=== PATIENT | female | born 1950 | race Hispanic/Latino ===

== ENCOUNTER 2018-01-24 15:06 | Inpatient (IN) | payer OTHER ==
[2018-01-24] MEDS ORDERED: oxyCODONE 10 mg Immediate Release Tab PO PRN (17:17)
[2018-01-24] MEDS: Docusate-Senna 50 mg-8.6 mg Tab PO SCH (21:33)
[2018-01-25] MEDS: Cholecalciferol 1,000 INTLU TAB PO SCH (09:06)
[2018-01-25] MEDS: Enoxaparin 40 mg Syringe SC SCH (09:07)
--- NOTE | 2018-01-25 09:28 | RAD ---
HISTORY: refused PPD COMPARISON: No prior. FINDINGS: LUNGS: No active pulmonary disease. PLEURA: No significant pleural effusion identified, no pneumothorax apparent. CARDIOVASCULAR: Cardiomegaly. OSSEOUS STRUCTURES: No significant abnormalities. VISUALIZED UPPER ABDOMEN: Normal. OTHER FINDINGS: None. IMPRESSION: No active disease.
--- NOTE | 2018-01-25 09:55 | CP.PCM.PN ---
Subjective - Date & Time of Evaluation Date of Evaluation: 01/25/18 Time of Evaluation: 09:15 - Subjective Subjective: Patient seen and examined at bedside comfortable. Azam well controlled. Tolerating PT well. C/o light headedness this AM. No other complaints. Objective - Vital Signs/Intake and Output Vital Signs (last 24 hours): Temp Pulse Resp BP Pulse Ox 98.8 F 84 20 110/70 91 L 01/25/18 09:02 01/25/18 09:06 01/25/18 09:02 01/25/18 09:06 01/25/18 09:02 - Medications Medications: Current Medications Acetaminophen (Tylenol 325mg Tab) 650 mg PO Q6 PRN PRN Reason: Pain, Mild (1-3) Acetaminophen (Tylenol 325mg Tab) 650 mg PO Q6 PRN PRN Reason: Fever >100.4 F Allopurinol (Zyloprim) 100 mg PO DAILY [facility] Last Admin: 01/25/18 09:06 Dose: 100 mg Amlodipine Besylate (Norvasc) 5 mg PO DAILY [facility] Last Admin: 01/25/18 09:05 Dose: 5 mg Aspirin (Ecotrin) 81 mg PO DAILY [facility] Last Admin: 01/25/18 09:06 Dose: 81 mg Atorvastatin Calcium (Lipitor) 20 mg PO DAILY@2200 [facility] Last Admin: 01/24/18 21:33 Dose: 20 mg Carvedilol (Coreg) 6.25 mg PO BID [facility] Last Admin: 01/25/18 09:06 Dose: 6.25 mg Cholecalciferol (Vitamin D) 2,000 intlu PO DAILY [facility] Last Admin: 01/25/18 09:06 Dose: 2,000 intlu Enoxaparin Sodium (Lovenox) 40 mg SC DAILY [facility] PRN Reason: Protocol Last Admin: 01/25/18 09:07 Dose: 40 mg Hydrochlorothiazide (Microzide) 12.5 mg PO DAILY [facility] Last Admin: 01/25/18 09:04 Dose: 12.5 mg Losartan Potassium (Cozaar) 100 mg PO DAILY [facility] Last Admin: 01/25/18 09:04 Dose: 100 mg Oxycodone HCl (Oxycodone Immediate Release Tab) 10 mg PO Q6 PRN PRN Reason: Pain, moderate (4-7) Last Admin: 06/28/18 07:20 Dose: 10 mg Senna/Docusate Sodium (Senokot S 50 Mg-8.6 Mg) 1 tab PO HS [facility] Last Admin: 01/24/18 21:33 Dose: 1 tab - Extremities Exam Additional comments: Right knee: Knee immobilizer intact, Dressings CDI, JERRY dressing intact with small areas of dry blood moderate edema, mild swelling sensation intact SP/DP/TN motor intact EHL/FHL/TA/G comps soft NT Assessment and Plan (1) Status post total right knee replacement Assessment & Plan: POD#3 s/p R TKA doing well -pain well controlled -outer dressings taken down, compression stocking applied -maintain JRERY dressing -PT/OT 10% FF WB -orthopedically stable -above d/w Dr. Plummer in agreement Status: Acute
--- NOTE | 2018-01-25 10:54 | CP.PCM.HP ---
History of Present Illness - History of Present Illness History of Present Illness: 67 yo female with history of HTN, HLD and OA had right TKR on 01/22/18 after failing conservative management. Patient did well and was transferred to TCU for continuation of postoperative care and therapy. Present on Admission - Present on Admission Any Indicators Present on Admission: No History of DVT/PE: No History of Uncontrolled Diabetes: No Urinary Catheter: No Decubitus Ulcer Present: No Review of Systems - Review of Systems All systems: reviewed and no additional remarkable complaints except (aside from those mentioned above, 12 point system review were negative by me) Past Patient History - Tetanus Immunizations Tetanus Immunization: Unknown - Past Medical History & Family History Past Medical History?: Yes - Past Social History Smoking Status: Never Smoked Chewing Tobacco Use: No Cigar Use: No Alcohol: None Drugs: Denies - CARDIAC Hx Cardiac Disorders: Yes Hx Hypertension: Yes - PULMONARY Hx Respiratory Disorders: No - NEUROLOGICAL Hx Neurological Disorder: No - HEENT Hx HEENT Problems: No - RENAL Hx Chronic Kidney Disease: No - ENDOCRINE/METABOLIC Hx Endocrine Disorders: No - HEMATOLOGICAL/ONCOLOGICAL Hx Blood Disorders: No Hx AIDS: No Hx Human Immunodeficiency Virus (HIV): No - INTEGUMENTARY Hx Dermatological Problems: No - MUSCULOSKELETAL/RHEUMATOLOGICAL Hx Musculoskeletal Disorders: Yes Hx Arthritis: Yes (knees) Hx Falls: No Other/Comment: Arthoplasty ,Rt TKR on 01/22/17 - GASTROINTESTINAL Hx Gastrointestinal Disorders: No - GENITOURINARY/GYNECOLOGICAL Hx Genitourinary Disorders: No - PSYCHIATRIC Hx Psychophysiologic Disorder: No Hx Substance Use: No - SURGICAL HISTORY Hx Surgeries: Yes Hx Appendectomy: Yes - ANESTHESIA Hx Anesthesia: Yes Hx Anesthesia Reactions: No Meds Allergies/Adverse Reactions: Allergies Allergy/AdvReac Type Severity Reaction Status Date / Time No Known Allergies Allergy Verified 01/24/18 16:37 Physical Exam - Constitutional Appears: No Acute Distress - Head Exam Head Exam: ATRAUMATIC - Eye Exam Eye Exam: absent: Scleral icterus - ENT Exam ENT Exam: Mucous Membranes Moist - Neck Exam Neck exam: Negative for: Meningismus - Respiratory Exam Respiratory Exam: absent: Rales, Rhonchi, Wheezes, Respiratory Distress - Cardiovascular Exam Cardiovascular Exam: REGULAR RHYTHM, +S1, +S2 - GI/Abdominal Exam GI & Abdominal Exam: Soft. absent: Tenderness - Rectal Exam Rectal Exam: Deferred - Extremities Exam Extremities exam: Negative for: full ROM (right knee on immobilizer) - Neurological Exam Neurological exam: Alert, Oriented x3 - Psychiatric Exam Psychiatric exam: Normal Affect - Skin Skin Exam: Dry, Intact Results - Vital Signs Recent Vital Signs: Last Vital Signs Temp 98.8 F 01/25/18 09:02 Pulse 84 01/25/18 09:06 Resp 20 01/25/18 09:02 BP 110/70 01/25/18 09:06 Pulse Ox 91 L 01/25/18 09:02 Assessment & Plan - Assessment and Plan (Free Text) Assessment: 67 yo female with history of HTN, HLD and OA had right TKR on 01/22/18 after failing conservative management. Patient did well and was transferred to TCU for continuation of postoperative care and therapy. 1. Post Right TKR pain well tolerated with pain medication continue PT/OT physiatry consult with Dr Ignacio 2. HTN BP stable continue Amlodipine, Coreg, Losartan and HCTZ 3. HLD continue Lipitor 4. DVT prophylaxis continue Lovenox
[2018-01-25] MEDS: Docusate-Senna 50 mg-8.6 mg Tab PO SCH (21:20)
--- NOTE | 2018-01-25 21:47 | CP.PCM.CON ---
History of Present Illness - History of Present Illness History of Present Illness: 67 year old female with right total knee replacement admitted to TCU for inpatient, OA failed conservative treatment. PMH of HTN,oa Review of Systems - Musculoskeletal Musculoskeletal: Abnormal Gait, Limited Range of Motion, Muscle Weakness Past Patient History - Tetanus Immunizations Tetanus Immunization: Unknown - Past Medical History & Family History Past Medical History?: Yes - Past Social History Smoking Status: Never Smoked Chewing Tobacco Use: No Cigar Use: No Alcohol: None Drugs: Denies - CARDIAC Hx Cardiac Disorders: Yes Hx Hypertension: Yes - PULMONARY Hx Respiratory Disorders: No - NEUROLOGICAL Hx Neurological Disorder: No - HEENT Hx HEENT Problems: No - RENAL Hx Chronic Kidney Disease: No - ENDOCRINE/METABOLIC Hx Endocrine Disorders: No - HEMATOLOGICAL/ONCOLOGICAL Hx Blood Disorders: No Hx AIDS: No Hx Human Immunodeficiency Virus (HIV): No - INTEGUMENTARY Hx Dermatological Problems: No - MUSCULOSKELETAL/RHEUMATOLOGICAL Hx Musculoskeletal Disorders: Yes Hx Arthritis: Yes (knees) Hx Falls: No Other/Comment: Arthoplasty ,Rt TKR on 01/22/17 - GASTROINTESTINAL Hx Gastrointestinal Disorders: No - GENITOURINARY/GYNECOLOGICAL Hx Genitourinary Disorders: No - PSYCHIATRIC Hx Psychophysiologic Disorder: No Hx Substance Use: No - SURGICAL HISTORY Hx Surgeries: Yes Hx Appendectomy: Yes - ANESTHESIA Hx Anesthesia: Yes Hx Anesthesia Reactions: No Meds Allergies/Adverse Reactions: Allergies Allergy/AdvReac Type Severity Reaction Status Date / Time No Known Allergies Allergy Verified 01/24/18 16:37 - Medications Medications: Current Medications Acetaminophen (Tylenol 325mg Tab) 650 mg PO Q6 PRN PRN Reason: Pain, Mild (1-3) Last Admin: 01/25/18 17:34 Dose: 650 mg Acetaminophen (Tylenol 325mg Tab) 650 mg PO Q6 PRN PRN Reason: Fever >100.4 F Allopurinol (Zyloprim) 100 mg PO DAILY [facility] Last Admin: 01/25/18 09:06 Dose: 100 mg Amlodipine Besylate (Norvasc) 5 mg PO DAILY [facility] Last Admin: 01/25/18 09:05 Dose: 5 mg Aspirin (Ecotrin) 81 mg PO DAILY [facility] Last Admin: 01/25/18 09:06 Dose: 81 mg Atorvastatin Calcium (Lipitor) 20 mg PO DAILY@2200 [facility] Last Admin: 01/25/18 21:20 Dose: 20 mg Carvedilol (Coreg) 6.25 mg PO BID [facility] Last Admin: 01/25/18 17:34 Dose: 6.25 mg Cholecalciferol (Vitamin D) 2,000 intlu PO DAILY [facility] Last Admin: 01/25/18 09:06 Dose: 2,000 intlu Enoxaparin Sodium (Lovenox) 40 mg SC DAILY [facility] PRN Reason: Protocol Last Admin: 01/25/18 09:07 Dose: 40 mg Hydrochlorothiazide (Microzide) 12.5 mg PO DAILY [facility] Last Admin: 01/25/18 09:04 Dose: 12.5 mg Losartan Potassium (Cozaar) 100 mg PO DAILY [facility] Last Admin: 01/25/18 09:04 Dose: 100 mg Senna/Docusate Sodium (Senokot S 50 Mg-8.6 Mg) 1 tab PO [facility] Last Admin: 01/25/18 21:20 Dose: 1 tab Tramadol HCl (Ultram) 50 mg PO Q6 PRN PRN Reason: Pain, moderate (6-10) Last Admin: 01/25/18 21:20 Dose: 50 mg Physical Exam - Head Exam Head Exam: ATRAUMATIC, NORMAL INSPECTION, NORMOCEPHALIC - Eye Exam Eye Exam: EOMI, Normal appearance, PERRL Pupil Exam: NORMAL ACCOMODATION, PERRL - ENT Exam ENT Exam: Mucous Membranes Moist, Normal Exam - Neck Exam Neck exam: Positive for: Normal Inspection - Respiratory Exam Respiratory Exam: Clear to Auscultation Bilateral, NORMAL BREATHING PATTERN - Cardiovascular Exam Cardiovascular Exam: REGULAR RHYTHM - GI/Abdominal Exam GI & Abdominal Exam: Normal Bowel Sounds - Rectal Exam Rectal Exam: NORMAL INSPECTION - Exam External exam: NORMAL EXTERNAL EXAM - Extremities Exam Extremities exam: Positive for: normal inspection Additional comments: right leg weakness - Back Exam Back exam: NORMAL INSPECTION - Neurological Exam Neurological exam: Alert - Psychiatric Exam Psychiatric exam: Normal Affect, Normal Mood - Skin Skin Exam: Dry, Normal Color, Warm Results - Vital Signs Recent Vital Signs: Last Vital Signs Temp 99.5 F 01/25/18 20:11 Pulse 77 01/25/18 20:11 Resp 20 01/25/18 20:11 BP 120/60 01/25/18 20:11 Pulse Ox 95 01/25/18 20:11 Assessment & Plan (1) Status post total right knee replacement Assessment and Plan: 67 year female admitted to TCU for inpatient rehab. Plan for physical, occupational, range of motion, strengthening, transfers and gait training, Quad strengthening, monitor range of motion of knee and skin. Status: Acute (2) Osteoarthritis of right knee Status: Acute
[2018-01-26] MEDS: Cholecalciferol 1,000 INTLU TAB PO SCH (09:06)
[2018-01-26] MEDS: Enoxaparin 40 mg Syringe SC SCH (09:09)
--- NOTE | 2018-01-26 10:52 | CP.PCM.PN ---
Subjective - Date & Time of Evaluation Date of Evaluation: 01/26/18 Time of Evaluation: 10:49 - Subjective Subjective: Patient states she doesn't have much pain. Sitting in chair, comfortable Objective - Vital Signs/Intake and Output Vital Signs (last 24 hours): Temp Pulse Resp BP Pulse Ox 98.2 F 74 20 110/80 100 01/26/18 08:21 01/26/18 09:08 01/26/18 08:21 01/26/18 09:08 01/26/18 08:21 - Medications Medications: Current Medications Acetaminophen (Tylenol 325mg Tab) 650 mg PO Q6 PRN PRN Reason: Pain, Mild (1-3) Last Admin: 01/25/18 17:34 Dose: 650 mg Acetaminophen (Tylenol 325mg Tab) 650 mg PO Q6 PRN PRN Reason: Fever >100.4 F Allopurinol (Zyloprim) 100 mg PO DAILY [facility] Last Admin: 01/26/18 09:06 Dose: 100 mg Amlodipine Besylate (Norvasc) 5 mg PO DAILY [facility] Last Admin: 01/26/18 09:08 Dose: 5 mg Aspirin (Ecotrin) 81 mg PO DAILY [facility] Last Admin: 01/26/18 09:06 Dose: 81 mg Atorvastatin Calcium (Lipitor) 20 mg PO DAILY@2200 [facility] Last Admin: 01/25/18 21:20 Dose: 20 mg Carvedilol (Coreg) 6.25 mg PO BID [facility] Last Admin: 01/26/18 09:07 Dose: 6.25 mg Cholecalciferol (Vitamin D) 2,000 intlu PO DAILY [facility] Last Admin: 01/26/18 09:06 Dose: 2,000 intlu Enoxaparin Sodium (Lovenox) 40 mg SC DAILY [facility] PRN Reason: Protocol Last Admin: 01/26/18 09:09 Dose: 40 mg Hydrochlorothiazide (Microzide) 12.5 mg PO DAILY [facility] Last Admin: 01/26/18 09:09 Dose: 12.5 mg Losartan Potassium (Cozaar) 100 mg PO DAILY [facility] Last Admin: 01/26/18 09:05 Dose: 100 mg Senna/Docusate Sodium (Senokot S 50 Mg-8.6 Mg) 1 tab PO HS [facility] Last Admin: 01/25/18 21:20 Dose: 1 tab Tramadol HCl (Ultram) 50 mg PO Q6 PRN PRN Reason: Pain, moderate (6-10) Last Admin: 01/26/18 09:03 Dose: 50 mg - Extremities Exam Additional comments: Right knee: mild swelling, +ROM ankle/toes, calves osft NT neg homans, no drainage on curtis, sensation intact Assessment and Plan (1) Status post total right knee replacement Assessment & Plan: POD# 4 s/p right TKR -labs today -PT/OT -keep curtis intace ice to knee, ponce elevation d/w DR. Plummer, agrees with above Status: Acute
[2018-01-26 12:02] LABS: HEMOGLOBIN 9.5 g/dL (12.0-16.0); MEAN CELL VOLUME 91.8 fl (81.0-99.0); MEAN CORPUSCULAR HGB CONC 33.8 g/dL (33.0-37.0); RBC 3.05 Mil/uL (3.80-5.20); RED CELL DISTRIBUTION WIDTH 13.2 % (11.5-14.5); WHITE BLOOD COUNT 7.7 K/uL (4.8-10.8)
[2018-01-26 12:28] LABS: CALCIUM 8.1 mg/dL (8.4-10.2)
[2018-01-26] MEDS: Sodium Chloride 0.9% 1,000 ML IV SCH (18:40)
[2018-01-26] MEDS: Docusate-Senna 50 mg-8.6 mg Tab PO SCH (21:17)
[2018-01-27] MEDS: Sodium Chloride 0.9% 1,000 ML IV SCH (03:22)
[2018-01-27 07:55] LABS: HEMOGLOBIN 8.6 g/dL (12.0-16.0); MEAN CELL VOLUME 92.3 fl (81.0-99.0); MEAN CORPUSCULAR HEMOGLOBIN 31.3 pg (27.0-31.0); MEAN CORPUSCULAR HGB CONC 33.9 g/dL (33.0-37.0); RBC 2.75 Mil/uL (3.80-5.20); RED CELL DISTRIBUTION WIDTH 13.3 % (11.5-14.5); WHITE BLOOD COUNT 5.3 K/uL (4.8-10.8)
[2018-01-27 08:07] LABS: BLOOD UREA NITROGEN 23 mg/dl (7-17); CALCIUM 7.2 mg/dL (8.4-10.2); GFR AFRICAN-AMERICAN > 60; GFR NON-AFRICAN AMERICAN > 60
[2018-01-27] MEDS: Enoxaparin 40 mg Syringe SC SCH (09:15)
[2018-01-27] MEDS: Cholecalciferol 1,000 INTLU TAB PO SCH (09:16)
[2018-01-27] MEDS: Docusate-Senna 50 mg-8.6 mg Tab PO SCH (21:11)
[2018-01-28] MEDS: Enoxaparin 40 mg Syringe SC SCH (08:06)
[2018-01-28] MEDS: Cholecalciferol 1,000 INTLU TAB PO SCH (08:06)
[2018-01-28] MEDS: Docusate-Senna 50 mg-8.6 mg Tab PO SCH (22:33)
[2018-01-29] MEDS: Enoxaparin 40 mg Syringe SC SCH (09:02)
[2018-01-29] MEDS: Cholecalciferol 1,000 INTLU TAB PO SCH (09:03)
--- NOTE | 2018-01-29 10:24 | CP.PCM.PN ---
Subjective - Date & Time of Evaluation Date of Evaluation: 01/29/18 Time of Evaluation: 09:30 - Subjective Subjective: Patient seen and examined OOB to wheelchair comfortable. Pain is 4/10 this AM controlled with medication. She also complains of burning to the RLE, RLE venous duplex performed yesterday. Objective - Vital Signs/Intake and Output Vital Signs (last 24 hours): Temp Pulse Resp BP Pulse Ox 97.7 F 82 20 162/82 H 99 01/29/18 08:10 01/29/18 09:03 01/29/18 08:10 01/29/18 09:03 01/29/18 08:10 - Medications Medications: Current Medications Acetaminophen (Tylenol 325mg Tab) 650 mg PO Q6 PRN PRN Reason: Pain, Mild (1-3) Last Admin: 01/26/18 17:12 Dose: 650 mg Acetaminophen (Tylenol 325mg Tab) 650 mg PO Q6 PRN PRN Reason: Fever >100.4 F Allopurinol (Zyloprim) 100 mg PO DAILY [facility] Last Admin: 01/29/18 09:03 Dose: 100 mg Amlodipine Besylate (Norvasc) 5 mg PO DAILY [facility] Last Admin: 01/29/18 09:03 Dose: 5 mg Aspirin (Ecotrin) 81 mg PO DAILY [facility] Last Admin: 01/29/18 09:02 Dose: 81 mg Atorvastatin Calcium (Lipitor) 20 mg PO DAILY@2200 [facility] Last Admin: 01/28/18 22:33 Dose: 20 mg Carvedilol (Coreg) 6.25 mg PO BID [facility] Last Admin: 01/29/18 09:02 Dose: 6.25 mg Cholecalciferol (Vitamin D) 2,000 intlu PO DAILY [facility] Last Admin: 01/29/18 09:03 Dose: 2,000 intlu Enoxaparin Sodium (Lovenox) 40 mg SC DAILY [facility] PRN Reason: Protocol Last Admin: 01/29/18 09:02 Dose: 40 mg Hydrochlorothiazide (Microzide) 12.5 mg PO DAILY [facility] Last Admin: 01/29/18 09:02 Dose: 12.5 mg Losartan Potassium (Cozaar) 100 mg PO DAILY [facility] Last Admin: 01/29/18 09:02 Dose: 100 mg Senna/Docusate Sodium (Senokot S 50 Mg-8.6 Mg) 1 tab PO HS [facility] Last Admin: 01/28/18 22:33 Dose: 1 tab Tramadol HCl (Ultram) 50 mg PO Q6 PRN PRN Reason: Pain, moderate (6-10) Last Admin: 01/29/18 09:03 Dose: 50 mg - Labs Labs: 01/27/18 05:30 01/27/18 05:30 - Extremities Exam Additional comments: Right knee: JERRY dressing intact moderate edema, mild swelling sensation intact SP/DP/TN motor intact EHL/FHL/TA/G comps soft NT Assessment and Plan (1) Status post total right knee replacement Assessment & Plan: POD#7 s/p R TKA doing well -Lower extremity venous duplex neg for DVT -compression stocking for edema, ice and elevate -maintain JERRY dressing -PT/OT 10% FF WB -orthopedically stable -above d/w Dr. Plummer in agreement Status: Acute Radiology Interpretation - Patient Services Clerk Patient Services Clerk:: Radiologist - Study type Study type:: Ultrasound - Body Region Body Region:: Lower extremeties - Notes: Notes:: Accession No. : [id number] Patient Name / ID : CADY DANIEL D / [id number] Exam Date : 01/28/2018 11:54:07 ( Approved ) Study Comment : Sex / Age : F / 67Y Creator : Marlo Onofre MD Dictator : Marlo Onofre MD Jig Grinder Set Up Operator : Woodworking Belt Sander : Marlo Onofre MD Approver2 : Report Date : 01/29/2018 09:44:22 My Comment : PROCEDURE: Right lower extremity venous duplex Doppler. HISTORY: r/o dvt COMPARISON: None available. TECHNIQUE: Common femoral, superficial femoral, popliteal and posterior tibial veins were evaluated. Flow was assessed with color Doppler, compressibility, assessment of phasic flow and augmentation response. FINDINGS: COMMON FEMORAL VEIN: Unremarkable. SUPERFICIAL FEMORAL VEIN: Unremarkable. POPLITEAL VEIN: Unremarkable. POSTERIOR TIBIAL VEIN: Unremarkable. OTHER FINDINGS: None. IMPRESSION: No evidence of deep venous thrombosis in the right lower extremity
[2018-01-29] MEDS: Docusate-Senna 50 mg-8.6 mg Tab PO SCH (21:15)
[2018-01-30] MEDS: Cholecalciferol 1,000 INTLU TAB PO SCH (08:00)
[2018-01-30] MEDS: Enoxaparin 40 mg Syringe SC SCH (08:01)
--- NOTE | 2018-01-30 08:10 | CP.PCM.PN ---
Subjective - Date & Time of Evaluation Date of Evaluation: 01/30/18 Time of Evaluation: 07:55 - Subjective Subjective: Patient seen and examined with Dr. Kavitha BOOKER to chair comfortable. C/o LRE swelling typical postop. Tolerating PT well. No new complaints. Objective - Vital Signs/Intake and Output Vital Signs (last 24 hours): Temp Pulse Resp BP Pulse Ox 98.4 F 75 20 132/75 99 01/30/18 08:08 01/30/18 08:08 01/30/18 08:08 01/30/18 08:08 01/30/18 08:08 - Medications Medications: Current Medications Acetaminophen (Tylenol 325mg Tab) 650 mg PO Q6 PRN PRN Reason: Pain, Mild (1-3) Last Admin: 01/26/18 17:12 Dose: 650 mg Acetaminophen (Tylenol 325mg Tab) 650 mg PO Q6 PRN PRN Reason: Fever >100.4 F Allopurinol (Zyloprim) 100 mg PO DAILY [facility] Last Admin: 01/30/18 08:00 Dose: 100 mg Amlodipine Besylate (Norvasc) 5 mg PO DAILY [facility] Last Admin: 01/30/18 08:01 Dose: 5 mg Aspirin (Ecotrin) 81 mg PO DAILY [facility] Last Admin: 01/30/18 08:00 Dose: 81 mg Atorvastatin Calcium (Lipitor) 20 mg PO DAILY@2200 [facility] Last Admin: 01/29/18 21:15 Dose: 20 mg Carvedilol (Coreg) 6.25 mg PO BID [facility] Last Admin: 01/30/18 08:00 Dose: 6.25 mg Cholecalciferol (Vitamin D) 2,000 intlu PO DAILY [facility] Last Admin: 01/30/18 08:00 Dose: 2,000 intlu Enoxaparin Sodium (Lovenox) 40 mg SC DAILY [facility] PRN Reason: Protocol Last Admin: 01/30/18 08:01 Dose: 40 mg Hydrochlorothiazide (Microzide) 12.5 mg PO DAILY [facility] Last Admin: 01/30/18 08:01 Dose: 12.5 mg Losartan Potassium (Cozaar) 100 mg PO DAILY [facility] Last Admin: 01/30/18 08:00 Dose: 100 mg Senna/Docusate Sodium (Senokot S 50 Mg-8.6 Mg) 1 tab PO HS [facility] Last Admin: 01/29/18 21:15 Dose: 1 tab Tramadol HCl (Ultram) 50 mg PO Q6 PRN PRN Reason: Pain, moderate (6-10) Last Admin: 01/30/18 07:58 Dose: 50 mg - Labs Labs: 01/27/18 05:30 01/27/18 05:30 - Extremities Exam Additional comments: Right knee: JERRY dressing intact, wound CDI with sekou, minimal bloody drainage at distal wound moderate edema, mild swelling sensation intact SP/DP/TN motor intact EHL/FHL/TA/G comps soft NT Assessment and Plan (1) Status post total right knee replacement Assessment & Plan: POD#8 s/p R TKA doing well -compression stocking for edema, ice and strict elevation -JERRY dressing removed -wet to dry betadine dressing applied, continue daily -PT/OT 10% FF WB -orthopedically stable -above d/w Dr. Plummer in agreement Status: Acute
[2018-01-30] MEDS ORDERED: Povidone Iodine Topical 10% Sol ONE (08:36)
--- NOTE | 2018-01-30 17:01 | CP.PCM.PN ---
Subjective - Date & Time of Evaluation Date of Evaluation: 01/30/18 Time of Evaluation: 11:30 - Subjective Subjective: Patient seen and examined. Denied any complaint. Tolerating PT/OT Objective - Vital Signs/Intake and Output Vital Signs (last 24 hours): Temp Pulse Resp BP Pulse Ox 98.2 F 82 20 137/79 97 01/30/18 16:25 01/30/18 16:42 01/30/18 16:25 01/30/18 16:42 01/30/18 16:25 - Medications Medications: Current Medications Acetaminophen (Tylenol 325mg Tab) 650 mg PO Q6 PRN PRN Reason: Pain, Mild (1-3) Last Admin: 01/26/18 17:12 Dose: 650 mg Acetaminophen (Tylenol 325mg Tab) 650 mg PO Q6 PRN PRN Reason: Fever >100.4 F Allopurinol (Zyloprim) 100 mg PO DAILY [facility] Last Admin: 01/30/18 08:00 Dose: 100 mg Amlodipine Besylate (Norvasc) 5 mg PO DAILY [facility] Last Admin: 01/30/18 08:01 Dose: 5 mg Aspirin (Ecotrin) 81 mg PO DAILY [facility] Last Admin: 01/30/18 08:00 Dose: 81 mg Atorvastatin Calcium (Lipitor) 20 mg PO DAILY@2200 [facility] Last Admin: 01/29/18 21:15 Dose: 20 mg Carvedilol (Coreg) 6.25 mg PO BID [facility] Last Admin: 01/30/18 16:42 Dose: 6.25 mg Cholecalciferol (Vitamin D) 2,000 intlu PO DAILY [facility] Last Admin: 01/30/18 08:00 Dose: 2,000 intlu Enoxaparin Sodium (Lovenox) 40 mg SC DAILY [facility] PRN Reason: Protocol Hydrochlorothiazide (Microzide) 12.5 mg PO DAILY [facility] Last Admin: 01/30/18 08:01 Dose: 12.5 mg Losartan Potassium (Cozaar) 100 mg PO DAILY [facility] Last Admin: 01/30/18 08:00 Dose: 100 mg Senna/Docusate Sodium (Senokot S 50 Mg-8.6 Mg) 1 tab PO HS [facility] Last Admin: 01/29/18 21:15 Dose: 1 tab Tramadol HCl (Ultram) 50 mg PO Q6 PRN PRN Reason: Pain, moderate (6-10) Last Admin: 01/30/18 14:08 Dose: 50 mg - Labs Labs: 01/27/18 05:30 01/27/18 05:30 - Constitutional Appears: No Acute Distress - Head Exam Head Exam: ATRAUMATIC - Eye Exam Eye Exam: absent: Scleral icterus - ENT Exam ENT Exam: Mucous Membranes Moist - Neck Exam Neck Exam: absent: Meningismus - Respiratory Exam Respiratory Exam: absent: Rales, Rhonchi, Wheezes, Respiratory Distress - Cardiovascular Exam Cardiovascular Exam: REGULAR RHYTHM, +S1, +S2 - GI/Abdominal Exam GI & Abdominal Exam: Soft. absent: Tenderness - Rectal Exam Rectal Exam: Deferred - Extremities Exam Extremities Exam: Joint Swelling (right knee still slightly swollen on knee immobilizer) - Neurological Exam Neurological Exam: Alert, Oriented x3 - Psychiatric Exam Psychiatric exam: Normal Affect - Skin Skin Exam: Dry, Intact Assessment and Plan - Assessment and Plan (Free Text) Plan: 67 yo female with history of HTN, HLD and OA had right TKR on 01/22/18 after failing conservative management. Patient did well and was transferred to TCU for continuation of postoperative care and therapy. 1. Post Right TKR pain well tolerated with pain medication continue PT/OT physiatry consult with Dr Ignacio 2. HTN BP stable continue Amlodipine, Coreg, Losartan and HCTZ 3. HLD continue Lipitor 4. DVT prophylaxis continue Lovenox
[2018-01-30] MEDS: Docusate-Senna 50 mg-8.6 mg Tab PO SCH (21:13)
[2018-01-31] MEDS: Cholecalciferol 1,000 INTLU TAB PO SCH (08:45)
[2018-01-31] MEDS: Enoxaparin 40 mg Syringe SC SCH (08:46)
[2018-01-31] MEDS: Docusate-Senna 50 mg-8.6 mg Tab PO SCH (21:44)
[2018-02-01] MEDS: Enoxaparin 40 mg Syringe SC SCH (08:12)
[2018-02-01] MEDS: Cholecalciferol 1,000 INTLU TAB PO SCH (08:13)
--- NOTE | 2018-02-01 13:50 | CP.PCM.PN ---
Subjective - Date & Time of Evaluation Date of Evaluation: 02/01/18 Time of Evaluation: 13:00 - Subjective Subjective: Patient seen and examined at bedside comfortable. Pain continues to improve and is minimal today. No new complaints. Objective - Vital Signs/Intake and Output Vital Signs (last 24 hours): Temp Pulse Resp BP Pulse Ox 97.9 F 79 20 140/83 95 02/01/18 09:23 02/01/18 09:23 02/01/18 09:23 02/01/18 09:23 02/01/18 09:23 - Medications Medications: Current Medications Acetaminophen (Tylenol 325mg Tab) 650 mg PO Q6 PRN PRN Reason: Pain, Mild (1-3) Last Admin: 01/26/18 17:12 Dose: 650 mg Acetaminophen (Tylenol 325mg Tab) 650 mg PO Q6 PRN PRN Reason: Fever >100.4 F Allopurinol (Zyloprim) 100 mg PO DAILY [facility] Last Admin: 02/01/18 08:13 Dose: 100 mg Amlodipine Besylate (Norvasc) 5 mg PO DAILY [facility] Last Admin: 02/01/18 08:13 Dose: 5 mg Aspirin (Ecotrin) 81 mg PO DAILY [facility] Last Admin: 02/01/18 08:13 Dose: 81 mg Atorvastatin Calcium (Lipitor) 20 mg PO DAILY@2200 [facility] Last Admin: 01/31/18 21:44 Dose: 20 mg Carvedilol (Coreg) 6.25 mg PO Q12 [facility] Last Admin: 02/01/18 08:13 Dose: 6.25 mg Cholecalciferol (Vitamin D) 2,000 intlu PO DAILY [facility] [place] Last Admin: 02/01/18 08:13 Dose: 2,000 intlu Enoxaparin Sodium (Lovenox) 40 mg SC DAILY [facility] PRN Reason: Protocol Last Admin: 02/01/18 08:12 Dose: 40 mg Hydrochlorothiazide (Microzide) 12.5 mg PO DAILY [facility] Last Admin: 02/01/18 08:14 Dose: 12.5 mg Losartan Potassium (Cozaar) 100 mg PO DAILY [facility] [place] Last Admin: 02/01/18 08:12 Dose: 100 mg Senna/Docusate Sodium (Senokot S 50 Mg-8.6 Mg) 1 tab PO HS [facility] Last Admin: 01/31/18 21:44 Dose: Not Given Tramadol HCl (Ultram) 50 mg PO Q6 PRN PRN Reason: Pain, moderate (6-10) Last Admin: 02/01/18 08:11 Dose: 50 mg - Labs Labs: 01/27/18 05:30 01/27/18 05:30 - Extremities Exam Additional comments: Right knee: Betadine dressings intact, wound CDI with sekou, no drainage moderate edema, mild swelling improved sensation intact SP/DP/TN motor intact EHL/FHL/TA/G comps soft NT Assessment and Plan (1) Status post total right knee replacement Assessment & Plan: POD#10 s/p R TKA doing well -ice and strict elevation -pillow at heel to promote knee extension -wet to dry betadine dressing changed -PT/OT 10% FF WB -orthopedically stable -above d/w Dr. Plummer in agreement Status: Acute
--- NOTE | 2018-02-01 16:04 | CP.PCM.PN ---
Subjective - Date & Time of Evaluation Date of Evaluation: 02/01/18 Time of Evaluation: 11:40 - Subjective Subjective: Patient seen and examined. Pain is more tolerable. Complained that her dressing was not changed since 2 days ago. Objective - Vital Signs/Intake and Output Vital Signs (last 24 hours): Temp Pulse Resp BP Pulse Ox 97.9 F 79 20 140/83 95 02/01/18 09:23 02/01/18 09:23 02/01/18 09:23 02/01/18 09:23 02/01/18 09:23 - Medications Medications: Current Medications Acetaminophen (Tylenol 325mg Tab) 650 mg PO Q6 PRN PRN Reason: Pain, Mild (1-3) Last Admin: 01/26/18 17:12 Dose: 650 mg Acetaminophen (Tylenol 325mg Tab) 650 mg PO Q6 PRN PRN Reason: Fever >100.4 F Allopurinol (Zyloprim) 100 mg PO DAILY [facility] Last Admin: 02/01/18 08:13 Dose: 100 mg Amlodipine Besylate (Norvasc) 5 mg PO DAILY [facility] Last Admin: 02/01/18 08:13 Dose: 5 mg Aspirin (Ecotrin) 81 mg PO DAILY [facility] Last Admin: 02/01/18 08:13 Dose: 81 mg Atorvastatin Calcium (Lipitor) 20 mg PO DAILY@2200 [facility] Last Admin: 01/31/18 21:44 Dose: 20 mg Carvedilol (Coreg) 6.25 mg PO Q12 [facility] Last Admin: 02/01/18 08:13 Dose: 6.25 mg Cholecalciferol (Vitamin D) 2,000 intlu PO DAILY [facility] Last Admin: 02/01/18 08:13 Dose: 2,000 intlu Enoxaparin Sodium (Lovenox) 40 mg SC DAILY [facility] PRN Reason: Protocol Last Admin: 02/01/18 08:12 Dose: 40 mg Hydrochlorothiazide (Microzide) 12.5 mg PO DAILY [facility] Last Admin: 02/01/18 08:14 Dose: 12.5 mg Losartan Potassium (Cozaar) 100 mg PO DAILY [facility] Last Admin: 02/01/18 08:12 Dose: 100 mg Senna/Docusate Sodium (Senokot S 50 Mg-8.6 Mg) 1 tab PO HS [facility] Last Admin: 01/31/18 21:44 Dose: Not Given Tramadol HCl (Ultram) 50 mg PO Q6 PRN PRN Reason: Pain, moderate (6-10) Last Admin: 02/01/18 14:15 Dose: 50 mg - Labs Labs: 01/27/18 05:30 01/27/18 05:30 - Constitutional Appears: No Acute Distress - Head Exam Head Exam: ATRAUMATIC - Eye Exam Eye Exam: absent: Scleral icterus - ENT Exam ENT Exam: Mucous Membranes Moist - Neck Exam Neck Exam: absent: Meningismus - Respiratory Exam Respiratory Exam: absent: Rales, Rhonchi, Wheezes, Respiratory Distress - Cardiovascular Exam Cardiovascular Exam: REGULAR RHYTHM, +S1, +S2 - GI/Abdominal Exam GI & Abdominal Exam: Soft. absent: Tenderness - Rectal Exam Rectal Exam: Deferred - Extremities Exam Extremities Exam: Pedal Edema (on right leg, DVT negative on doppler). absent: Calf Tenderness - Neurological Exam Neurological Exam: Alert, Oriented x3 - Psychiatric Exam Psychiatric exam: Normal Affect - Skin Skin Exam: Dry, Intact Assessment and Plan - Assessment and Plan (Free Text) Assessment: 67 yo female with history of HTN, HLD and OA had right TKR on 01/22/18 after failing conservative management. Patient did well and was transferred to TCU for continuation of postoperative care and therapy. 1. Post Right TKR pain well tolerated with pain medication continue PT/OT physiatry consult with Dr Ignacio 2. HTN BP stable continue Amlodipine, Coreg, Losartan and HCTZ 3. HLD continue Lipitor 4. DVT prophylaxis continue Lovenox
[2018-02-01] MEDS: Docusate-Senna 50 mg-8.6 mg Tab PO SCH (21:01)
--- NOTE | 2018-02-02 08:34 | CP.PCM.PN ---
Subjective - Date & Time of Evaluation Date of Evaluation: 02/02/18 Time of Evaluation: 07:00 - Subjective Subjective: Patient with much less pain, good bed mobility. Objective - Vital Signs/Intake and Output Vital Signs (last 24 hours): Temp Pulse Resp BP Pulse Ox 98.1 F 77 20 139/71 96 02/01/18 20:43 02/01/18 20:56 02/01/18 20:43 02/01/18 20:56 02/01/18 20:43 - Medications Medications: Current Medications Acetaminophen (Tylenol 325mg Tab) 650 mg PO Q6 PRN PRN Reason: Pain, Mild (1-3) Last Admin: 01/26/18 17:12 Dose: 650 mg Acetaminophen (Tylenol 325mg Tab) 650 mg PO Q6 PRN PRN Reason: Fever >100.4 F Allopurinol (Zyloprim) 100 mg PO DAILY [facility] Last Admin: 02/01/18 08:13 Dose: 100 mg Amlodipine Besylate (Norvasc) 5 mg PO DAILY [facility] Last Admin: 02/01/18 08:13 Dose: 5 mg Aspirin (Ecotrin) 81 mg PO DAILY [facility] Last Admin: 02/01/18 08:13 Dose: 81 mg Atorvastatin Calcium (Lipitor) 20 mg PO DAILY@2200 [facility] Last Admin: 02/01/18 21:01 Dose: 20 mg Carvedilol (Coreg) 6.25 mg PO Q12 [facility] Last Admin: 02/01/18 20:56 Dose: 6.25 mg Cholecalciferol (Vitamin D) 2,000 intlu PO DAILY [facility] Last Admin: 02/01/18 08:13 Dose: 2,000 intlu Enoxaparin Sodium (Lovenox) 40 mg SC DAILY [facility] PRN Reason: Protocol Last Admin: 02/01/18 08:12 Dose: 40 mg Hydrochlorothiazide (Microzide) 12.5 mg PO DAILY [facility] Last Admin: 02/01/18 08:14 Dose: 12.5 mg Losartan Potassium (Cozaar) 100 mg PO DAILY [facility] Last Admin: 02/01/18 08:12 Dose: 100 mg Senna/Docusate Sodium (Senokot S 50 Mg-8.6 Mg) 1 tab PO HS [facility] Last Admin: 02/01/18 21:01 Dose: Not Given Tramadol HCl (Ultram) 50 mg PO Q6 PRN PRN Reason: Pain, moderate (6-10) Last Admin: 02/01/18 14:15 Dose: 50 mg - Labs Labs: 01/27/18 05:30 01/27/18 05:30 - Extremities Exam Additional comments: incision intact, dry, no erythema, resolving ecchymosis and swelling +ROM ankle/toes sensation intact right leg elevated dressing changed with dry sterile dressing Assessment and Plan (1) Status post total right knee replacement Assessment & Plan: POD#11 s/p right TKR PT/OT f/u labs (1 week since last post op labs) VTE proph encourage OOB d/w Dr. Plummer, agrees with above Status: Acute (2) Acute blood loss anemia Assessment & Plan: VSS new labs ordered Status: Acute
[2018-02-02] MEDS: Enoxaparin 40 mg Syringe SC SCH (08:38)
[2018-02-02] MEDS: Cholecalciferol 1,000 INTLU TAB PO SCH (08:41)
[2018-02-02 09:55] LABS: HEMOGLOBIN 10.4 g/dL (12.0-16.0); MEAN CELL VOLUME 91.7 fl (81.0-99.0); MEAN CORPUSCULAR HEMOGLOBIN 30.5 pg (27.0-31.0); MEAN CORPUSCULAR HGB CONC 33.2 g/dL (33.0-37.0); RBC 3.41 Mil/uL (3.80-5.20); RED CELL DISTRIBUTION WIDTH 13.3 % (11.5-14.5); WHITE BLOOD COUNT 7.1 K/uL (4.8-10.8)
[2018-02-02 10:27] LABS: CALCIUM 9.3 mg/dL (8.4-10.2)
[2018-02-02] MEDS: Docusate-Senna 50 mg-8.6 mg Tab PO SCH (21:01)
[2018-02-03] MEDS: Enoxaparin 40 mg Syringe SC SCH (08:22)
[2018-02-03] MEDS: Cholecalciferol 1,000 INTLU TAB PO SCH (08:23)
[2018-02-03] MEDS: Docusate-Senna 50 mg-8.6 mg Tab PO SCH (21:29)
[2018-02-04] MEDS: Cholecalciferol 1,000 INTLU TAB PO SCH (09:31)
--- NOTE | 2018-02-04 14:10 | CP.PCM.PN ---
Subjective - Date & Time of Evaluation Date of Evaluation: 02/04/18 Time of Evaluation: 14:00 - Subjective Subjective: S- pt doing very well/minimal post op discomfort Objective - Vital Signs/Intake and Output Vital Signs (last 24 hours): Temp Pulse Resp BP Pulse Ox 97.7 F 81 20 137/73 97 02/04/18 08:17 18 09:31 18 08:17 02/04/18 09:31 02/04/18 08:17 - Medications Medications: Current Medications Acetaminophen (Tylenol 325mg Tab) 650 mg PO Q6 PRN PRN Reason: Pain, Mild (1-3) Last Admin: 02/04/18 11:26 Dose: 650 mg Acetaminophen (Tylenol 325mg Tab) 650 mg PO Q6 PRN PRN Reason: Fever >100.4 F Allopurinol (Zyloprim) 100 mg PO DAILY [facility] Last Admin: 02/04/18 09:31 Dose: 100 mg Amlodipine Besylate (Norvasc) 5 mg PO DAILY [facility] Last Admin: 02/04/18 09:31 Dose: 5 mg Aspirin (Ecotrin) 81 mg PO DAILY [facility] Last Admin: 02/04/18 09:31 Dose: 81 mg Atorvastatin Calcium (Lipitor) 20 mg PO DAILY@2200 [facility] Last Admin: 02/03/18 21:27 Dose: 20 mg Carvedilol (Coreg) 6.25 mg PO Q12 [facility] Last Admin: 02/04/18 09:31 Dose: 6.25 mg Cholecalciferol (Vitamin D) 2,000 intlu PO DAILY [facility] Last Admin: 02/04/18 09:31 Dose: 2,000 intlu Hydrochlorothiazide (Microzide) 12.5 mg PO DAILY [facility] Last Admin: 02/04/18 09:31 Dose: 12.5 mg Losartan Potassium (Cozaar) 100 mg PO DAILY [facility] Last Admin: 02/04/18 09:31 Dose: 100 mg Senna/Docusate Sodium (Senokot S 50 Mg-8.6 Mg) 1 tab PO HS [facility] Last Admin: 02/03/18 21:29 Dose: Not Given Tramadol HCl (Ultram) 50 mg PO Q6 PRN PRN Reason: Pain, moderate (4-7) - Labs Labs: 02/02/18 09:48 02/02/18 09:48 - Skin Additional comments: Systemic- wnl Musculoskekeltal stance/gat- defrred R knee rom improving minima tenderness N/V intact Xrays- reveal acceptable position of construct Assessment and Plan - Assessment and Plan (Free Text) Assessment: A- s/p TKR P- orthopedically stable wound benign continue 10% footfat weight bearing with walker
[2018-02-04] MEDS: Docusate-Senna 50 mg-8.6 mg Tab PO SCH (22:34)
[2018-02-05] MEDS: Cholecalciferol 1,000 INTLU TAB PO SCH (08:09)
[2018-02-05 15:58] VITALS: RESP 20
[2018-02-05] MEDS: Enoxaparin 40 mg Syringe SC SCH (16:23)
[2018-02-05] MEDS: Docusate-Senna 50 mg-8.6 mg Tab PO SCH (21:58)
[2018-02-06] MEDS: Enoxaparin 40 mg Syringe SC SCH (08:28)
[2018-02-06] MEDS: Cholecalciferol 1,000 INTLU TAB PO SCH (08:29)
--- NOTE | 2018-02-06 14:01 | CP.PCM.PN ---
Subjective - Date & Time of Evaluation Date of Evaluation: 02/06/18 Time of Evaluation: 13:59 - Subjective Subjective: Patient complaining of pain in her left leg when she is walking. Advised patient that she is putting all her weight on left leg and soreness is expected. Denies CP/SOB/dizziness/numbness/tingling. Family at bedside. Objective - Vital Signs/Intake and Output Vital Signs (last 24 hours): Temp Pulse Resp BP Pulse Ox 98.4 F 64 20 112/64 98 02/06/18 08:30 02/06/18 08:30 02/06/18 08:30 02/06/18 08:30 02/06/18 08:30 - Medications Medications: Current Medications Acetaminophen (Tylenol 325mg Tab) 650 mg PO Q6 PRN PRN Reason: Pain, Mild (1-3) Last Admin: 02/04/18 22:41 Dose: 650 mg Acetaminophen (Tylenol 325mg Tab) 650 mg PO Q6 PRN PRN Reason: Fever >100.4 F Allopurinol (Zyloprim) 100 mg PO DAILY [facility] Last Admin: 02/06/18 08:28 Dose: 100 mg Amlodipine Besylate (Norvasc) 5 mg PO DAILY [facility] Last Admin: 02/06/18 08:28 Dose: 5 mg Aspirin (Ecotrin) 81 mg PO DAILY [facility] Last Admin: 02/06/18 08:29 Dose: 81 mg Atorvastatin Calcium (Lipitor) 20 mg PO DAILY@2200 [facility] Last Admin: 02/05/18 21:58 Dose: 20 mg Carvedilol (Coreg) 6.25 mg PO Q12 [facility] Last Admin: 02/06/18 08:29 Dose: 6.25 mg Cholecalciferol (Vitamin D) 2,000 intlu PO DAILY [facility] Last Admin: 02/06/18 08:29 Dose: 2,000 intlu Enoxaparin Sodium (Lovenox) 40 mg SC DAILY [facility] PRN Reason: Protocol Last Admin: 02/06/18 08:28 Dose: 40 mg Hydrochlorothiazide (Microzide) 12.5 mg PO DAILY [facility] Last Admin: 02/06/18 08:27 Dose: 12.5 mg Losartan Potassium (Cozaar) 100 mg PO DAILY [facility] Last Admin: 02/06/18 08:27 Dose: 100 mg Senna/Docusate Sodium (Senokot S 50 Mg-8.6 Mg) 1 tab PO HS [facility] Last Admin: 02/05/18 21:58 Dose: Not Given Tramadol HCl (Ultram) 50 mg PO Q6 PRN PRN Reason: Pain, moderate (4-7) Last Admin: 02/06/18 08:27 Dose: 50 mg - Labs Labs: 02/02/18 09:48 02/02/18 09:48 - Extremities Exam Additional comments: right knee: +ROM ankle/toes, able to move leg without pain, sensation intaqct, incision intact, improved ecchymosis and swelling, calves soft NT neg homans, mild swelling to lower leg, elevated Assessment and Plan (1) Status post total right knee replacement Assessment & Plan: POD#16 s/p right TKR 10% WB PT/OT VTE proph ortho stable d/w DR. Plummer, agrees with above Status: Acute (2) Acute blood loss anemia Assessment & Plan: stable Status: Acute
--- NOTE | 2018-02-06 18:51 | CP.PCM.PN ---
Subjective - Date & Time of Evaluation Date of Evaluation: 02/06/18 Time of Evaluation: 01:30 - Subjective Subjective: Patient seen and examined. Denied any complaint. Objective - Vital Signs/Intake and Output Vital Signs (last 24 hours): Temp Pulse Resp BP Pulse Ox 97.5 F L 81 20 140/76 98 02/06/18 16:08 02/06/18 16:08 02/06/18 16:08 02/06/18 16:08 02/06/18 16:08 - Medications Medications: Current Medications Acetaminophen (Tylenol 325mg Tab) 650 mg PO Q6 PRN PRN Reason: Pain, Mild (1-3) Last Admin: 02/04/18 22:41 Dose: 650 mg Acetaminophen (Tylenol 325mg Tab) 650 mg PO Q6 PRN PRN Reason: Fever >100.4 F Allopurinol (Zyloprim) 100 mg PO DAILY [facility] Last Admin: 02/06/18 08:28 Dose: 100 mg Amlodipine Besylate (Norvasc) 5 mg PO DAILY [facility] Last Admin: 02/06/18 08:28 Dose: 5 mg Aspirin (Ecotrin) 81 mg PO DAILY [facility] Last Admin: 02/06/18 08:29 Dose: 81 mg Atorvastatin Calcium (Lipitor) 20 mg PO DAILY@2200 [facility] Last Admin: 02/05/18 21:58 Dose: 20 mg Carvedilol (Coreg) 6.25 mg PO Q12 [facility] Last Admin: 02/06/18 08:29 Dose: 6.25 mg Cholecalciferol (Vitamin D) 2,000 intlu PO DAILY [facility] Last Admin: 02/06/18 08:29 Dose: 2,000 intlu Enoxaparin Sodium (Lovenox) 40 mg SC DAILY [facility] PRN Reason: Protocol Last Admin: 02/06/18 08:28 Dose: 40 mg Hydrochlorothiazide (Microzide) 12.5 mg PO DAILY [facility] Last Admin: 02/06/18 08:27 Dose: 12.5 mg Losartan Potassium (Cozaar) 100 mg PO DAILY [facility] Last Admin: 02/06/18 08:27 Dose: 100 mg Senna/Docusate Sodium (Senokot S 50 Mg-8.6 Mg) 1 tab PO HS [facility] Last Admin: 02/05/18 21:58 Dose: Not Given Tramadol HCl (Ultram) 50 mg PO Q6 PRN PRN Reason: Pain, moderate (4-7) Last Admin: 02/06/18 08:27 Dose: 50 mg - Labs Labs: 02/02/18 09:48 02/02/18 09:48 - Constitutional Appears: No Acute Distress - Head Exam Head Exam: ATRAUMATIC - Eye Exam Eye Exam: absent: Scleral icterus - ENT Exam ENT Exam: Mucous Membranes Moist - Neck Exam Neck Exam: absent: Meningismus - Respiratory Exam Respiratory Exam: absent: Rales, Rhonchi, Wheezes, Respiratory Distress - Cardiovascular Exam Cardiovascular Exam: REGULAR RHYTHM, +S1, +S2 - GI/Abdominal Exam GI & Abdominal Exam: Soft. absent: Tenderness - Rectal Exam Rectal Exam: Deferred - Extremities Exam Extremities Exam: absent: Full ROM (limited ROM on right knee) - Back Exam Back Exam: NORMAL INSPECTION - Neurological Exam Neurological Exam: Alert, Oriented x3 - Psychiatric Exam Psychiatric exam: Normal Affect - Skin Skin Exam: Dry, Intact Assessment and Plan - Assessment and Plan (Free Text) Assessment: 67 yo female with history of HTN, HLD and OA had right TKR on 01/22/18 after failing conservative management. Patient did well and was transferred to TCU for continuation of postoperative care and therapy. 1. Post Right TKR pain well tolerated with pain medication continue PT/OT physiatry consult with Dr Ignacio 2. HTN BP stable continue Amlodipine, Coreg, Losartan and HCTZ 3. HLD continue Lipitor 4. DVT prophylaxis continue Lovenox
[2018-02-06] MEDS: Docusate-Senna 50 mg-8.6 mg Tab PO SCH (21:36)
[2018-02-07] MEDS: Cholecalciferol 1,000 INTLU TAB PO SCH (08:48)
[2018-02-07] MEDS: Enoxaparin 40 mg Syringe SC SCH (08:48)
--- NOTE | 2018-02-07 15:03 | CP.PCM.PN ---
Subjective - Date & Time of Evaluation Date of Evaluation: 02/07/18 Time of Evaluation: 14:00 - Subjective Subjective: Patient seen and examined OOB to wheelchair comfortable. Pain well controlled. No new complaints. Objective - Vital Signs/Intake and Output Vital Signs (last 24 hours): Temp Pulse Resp BP Pulse Ox 97.9 F 70 20 128/74 100 02/07/18 08:03 02/07/18 08:48 02/07/18 08:03 02/07/18 08:48 02/07/18 08:03 - Medications Medications: Current Medications Acetaminophen (Tylenol 325mg Tab) 650 mg PO Q6 PRN PRN Reason: Pain, Mild (1-3) Last Admin: 02/06/18 21:37 Dose: 650 mg Acetaminophen (Tylenol 325mg Tab) 650 mg PO Q6 PRN PRN Reason: Fever >100.4 F Allopurinol (Zyloprim) 100 mg PO DAILY [facility] Last Admin: 02/07/18 08:49 Dose: 100 mg Amlodipine Besylate (Norvasc) 5 mg PO DAILY [facility] Last Admin: 02/07/18 08:48 Dose: 5 mg Aspirin (Ecotrin) 81 mg PO DAILY [facility] Last Admin: 02/07/18 08:48 Dose: 81 mg Atorvastatin Calcium (Lipitor) 20 mg PO DAILY@2200 [facility] Last Admin: 02/06/18 21:33 Dose: 20 mg Carvedilol (Coreg) 6.25 mg PO Q12 [facility] Last Admin: 02/07/18 08:47 Dose: 6.25 mg Cholecalciferol (Vitamin D) 2,000 intlu PO DAILY [facility] Last Admin: 02/07/18 08:48 Dose: 2,000 intlu Enoxaparin Sodium (Lovenox) 40 mg SC DAILY [facility] PRN Reason: Protocol Last Admin: 02/07/18 08:48 Dose: 40 mg Hydrochlorothiazide (Microzide) 12.5 mg PO DAILY [facility] Last Admin: 02/07/18 08:48 Dose: 12.5 mg Losartan Potassium (Cozaar) 100 mg PO DAILY [facility] Last Admin: 02/07/18 08:47 Dose: 100 mg Senna/Docusate Sodium (Senokot S 50 Mg-8.6 Mg) 1 tab PO HS [facility] Last Admin: 02/06/18 21:36 Dose: 1 tab Tramadol HCl (Ultram) 50 mg PO Q6 PRN PRN Reason: Pain, moderate (4-7) Last Admin: 02/07/18 08:49 Dose: 50 mg - Labs Labs: 02/02/18 09:48 02/02/18 09:48 - Extremities Exam Additional comments: Right knee: Dry dressings CDI, wound CDI with sekou, no drainage swelling continues to improved sensation intact SP/DP/TN motor intact EHL/FHL/TA/G comps soft NT Assessment and Plan (1) Status post total right knee replacement Assessment & Plan: POD#17 s/p R TKA doing well -dressing changed -PT/OT 10% FF WB -orthopedically stable for discharge tomorrow -above d/w Dr. Plummer in agreement Status: Acute
[2018-02-07] MEDS: Docusate-Senna 50 mg-8.6 mg Tab PO SCH (21:53)
[2018-02-08 08:27] VITALS: O2SAT 99
[2018-02-08] MEDS: Enoxaparin 40 mg Syringe SC SCH (08:50)
[2018-02-08] MEDS: Cholecalciferol 1,000 INTLU TAB PO SCH (08:53)
--- NOTE | 2018-02-08 10:49 | CP.PCM.PN ---
Subjective - Date & Time of Evaluation Date of Evaluation: 02/08/18 Time of Evaluation: 10:47 - Subjective Subjective: Patient states she if feeling better. No new complaints. Objective - Vital Signs/Intake and Output Vital Signs (last 24 hours): Temp Pulse Resp BP Pulse Ox 98.1 F 62 20 131/71 99 02/08/18 08:27 02/08/18 08:52 02/08/18 08:27 02/08/18 08:52 02/08/18 08:27 - Medications Medications: Current Medications Acetaminophen (Tylenol 325mg Tab) 650 mg PO Q6 PRN PRN Reason: Pain, Mild (1-3) Last Admin: 02/07/18 21:52 Dose: 650 mg Acetaminophen (Tylenol 325mg Tab) 650 mg PO Q6 PRN PRN Reason: Fever >100.4 F Allopurinol (Zyloprim) [address] [facility] Last Admin: 02/08/18 08:51 Dose: 100 mg Amlodipine Besylate (Norvasc) [address] [facility] Last Admin: 02/08/18 08:52 Dose: 5 mg Aspirin (Ecotrin) [address] [facility] Last Admin: 02/08/18 08:51 Dose: 81 mg Atorvastatin Calcium (Lipitor) 20 mg PO DAILY@2200 [facility] Last Admin: 02/07/18 21:53 Dose: 20 mg Carvedilol (Coreg) 6.[address] [facility] Last Admin: 02/08/18 08:51 Dose: 6.25 mg Cholecalciferol (Vitamin D) 2,[address] [facility] Last Admin: 02/08/18 08:53 Dose: 2,000 intlu Enoxaparin Sodium (Lovenox) [address] [facility] PRN Reason: Protocol Last Admin: 02/08/18 08:50 Dose: 40 mg Hydrochlorothiazide (Microzide) 12.[address] [facility] Last Admin: 02/08/18 08:51 Dose: 12.5 mg Losartan Potassium (Cozaar) [address] [facility] Last Admin: 02/08/18 08:51 Dose: 100 mg Senna/Docusate Sodium (Senokot S 50 Mg-8.6 Mg) [address] [facility] Last Admin: 02/07/18 21:53 Dose: 1 tab Tramadol HCl (Ultram) 50 mg PO Q6 PRN PRN Reason: Pain, moderate (4-7) Last Admin: 02/08/18 08:49 Dose: 50 mg - Labs Labs: 02/02/18 09:48 02/02/18 09:48 - Extremities Exam Additional comments: Right knee: sekou removed, incision well healed, no erythema or drainage, steris applied. Calves soft NT neg homans +ROM ankle/toes, sensation intact +DP/PT pulses Assessment and Plan (1) Status post total right knee replacement Assessment & Plan: POD#18 s/p right TKR 10% WB PT/OT VTE proph ortho stable for d/c home, f/ u10-14 days call for appt continue op site until monday, then remove, keep steri strips intact d/w DR. Plummer, agrees with above Status: Acute (2) Acute blood loss anemia Status: Acute
--- NOTE | 2018-02-08 10:59 | CP.PCM.DIS ---
Provider - Provider Date of Admission: 01/24/18 17:06 Attending physician: Aba Bangura DO Primary care physician: Len Plummer III, MD Consults: Dr. Plummer- orthopedics Time Spent in preparation of Discharge (in minutes): 15 Hospital Course - Lab Results Lab Results: Most Recent Lab Values WBC 7.1 K/uL (4.8-10.8) 02/02/18 09:48 RBC 3.41 Mil/uL (3.80-5.20) L 02/02/18 09:48 Hgb 10.4 g/dL (12.0-16.0) L 02/02/18 09:48 Hct 31.2 % (34.0-47.0) L 02/02/18 09:48 MCV 91.7 fl (81.0-99.0) 02/02/18 09:48 MCH 30.5 pg (27.0-31.0) 02/02/18 09:48 MCHC 33.2 g/dL (33.0-37.0) 02/02/18 09:48 RDW 13.3 % (11.5-14.5) 02/02/18 09:48 Plt Count 448 K/uL (130-400) H D 02/02/18 09:48 Sodium 138 mmol/l (132-148) 02/02/18 09:48 Potassium 4.4 MMOL/L (3.6-5.0) 02/02/18 09:48 Chloride 101 mmol/L (98-107) 02/02/18 09:48 Carbon Dioxide 24 mmol/L (22-30) 02/02/18 09:48 Anion Gap 17 (10-20) 02/02/18 09:48 BUN 26 mg/dl (7-17) H 02/02/18 09:48 Creatinine 1.2 mg/dl (0.7-1.2) 02/02/18 09:48 Est GFR ( Amer) 54 02/02/18 09:48 Est GFR (Non-Af Amer) 45 02/02/18 09:48 Random Glucose 191 mg/dL (65-105) H 02/02/18 09:48 Calcium 9.3 mg/dL (8.4-10.2) 02/02/18 09:48 - Hospital Course Hospital Course: 67 year old female with a past medical history of HTN, HLD, and OA, s/p right TKR on 01/22/18 after failing conservative management. The patient did well during the surgery and afterwards was transferred to TCU for continuation of postoperative care and therapy. During her stay in TCU, she tolerated therapies well and had an uneventful course of stay. She is now being discharged to home in stable condition. 1. Post Right TKR pain well tolerated with pain medication- continue Ultram as outpatient PRN did well with PT/OT physiatry consult with Dr Ignacio 2. HTN BP stable continue Amlodipine, Coreg, Losartan and HCTZ 3. HLD continue Lipitor 4. DVT prophylaxis received lovenox while inpatient Continue ASA 81 mg po BID as outpatient Discharge Exam - Head Exam Head Exam: ATRAUMATIC - Additional Findings Additional findings: Physical exam: Constitutional- cooperative, awake, alert Head- NCAT, PERRL Eye- PERRL, EOMI ENT- normal exam, MMM. Neck- normal inspection, supple, no JVD Respiratory- CTAB, no wheezes rales rhonchi Cardiovascular- RRR, +S1, +S2 no MRG GI/Abdominal- normal bowel sounds, soft, no mass, no hsm Skin- warm, dry Extremities Exam- normal capillary refill, normal inspection Neurological Exam- alert, awake, oriented Psych- normal mood, normal affect Discharge Plan - Discharge Medications Prescriptions: Allopurinol [Zyloprim] 100 mg PO DAILY #30 tab amLODIPine [Norvasc] 5 mg PO DAILY #30 tab Aspirin [Ecotrin] 81 mg PO DAILY #30 tabec Atorvastatin [Lipitor] 20 mg PO DAILY@2200 #30 tab Carvedilol [Coreg] 6.25 mg PO BID #60 tab Cholecalciferol (Vitamin D3) [Vitamin D3] 2,000 unit PO DAILY #30 capsule Docusate Sodium/Sennosides A [Senokot S 50 MG-8.6 MG] 1 tab PO HS #30 tab hydroCHLOROthiazide [Microzide] 12.5 mg PO DAILY #30 cap Losartan [Cozaar] 100 mg PO DAILY #30 tab traMADol [Ultram] 50 mg PO Q6 PRN #20 tab PRN Reason: Pain, Moderate (4-7) - Follow Up Plan Condition: GOOD Disposition: HOME/ ROUTINE Referrals: Len Plummer III, MD [Primary Care Provider] -
[2018-02-08 16:13] VITALS: BP 123/69; PULSE 69; TEMP 97.5
== END 2018-02-08 18:35 | disposition home or self-care (01) | DRG 560 ==
LOC: H.TCU 17:06
PROVIDERS: ADMIT Internal Medicine; ATTEND Internal Medicine
PROC: F07Z9FZ Gait Training/Functional Ambulation Treatment using Assistive, Adaptive, Supportive or Protective Equipment (ICD-10-PCS; principal; 2018-01-24)
PROC: F07L6ZZ Therapeutic Exercise Treatment of Musculoskeletal System - Lower Back / Lower Extremity (ICD-10-PCS; 2018-01-24)
PROC: F08Z1FZ Dressing Techniques Treatment using Assistive, Adaptive, Supportive or Protective Equipment (ICD-10-PCS; 2018-01-24)
DX: Z47.1 Aftercare following joint replacement surgery (principal); D62 Acute posthemorrhagic anemia; Z96.651 Presence of right artificial knee joint; I10 Essential (primary) hypertension; E78.5 Hyperlipidemia, unspecified

== ENCOUNTER 2018-03-21 06:39 | Inpatient (IN) | payer MEDICARE, OTHER ==
[2018-03-21 07:21] VITALS: BMI 35.9
--- NOTE | 2018-03-21 07:52 | CP.PCM.CON ---
History of Present Illness - History of Present Illness History of Present Illness: Orthopedic consult Patient is a 67 y/o female with PMH of HTN, hypercholesterolemia presents for I& D of right TKA surgical wound. Patient had successful primary TKA performed on 01/22/18, transferred to TCU and discharged home stable. Three weeks ago she noticed mild serous drainage from the inferior aspect of her wound. She was seen by Dr. Plummer in the office and initiated wet to dry betadine dressings daily. The drainage has persisted despite this prompting her admission today. Her daughter presents with her today, acting as her sales and service consultant, stating that her mother has suffered from porr circulation issues with her lower extremities for many years which she believes contributes to her wound break down. Currently she has minimal complaints of pain. She is able to ambulate with the use of a walker. She denies radiation of pain/numbness/tingling. She also denies CP/SOB/N/V/D/fever/VIVAR/dysuria/melena. Review of Systems - Review of Systems All systems: reviewed and no additional remarkable complaints except Review of Systems: as per HPI Past Patient History - Tetanus Immunizations Tetanus Immunization: Unknown - Past Medical History & Family History Past Medical History?: Yes Past Family History: Reviewed and not pertinent - Past Social History Smoking Status: Never Smoked Chewing Tobacco Use: No Alcohol: None Drugs: Denies - CARDIAC Hx Cardiac Disorders: Yes Hx Hypertension: Yes - PULMONARY Hx Respiratory Disorders: No - NEUROLOGICAL Hx Neurological Disorder: No - HEENT Hx HEENT Problems: No - RENAL Hx Chronic Kidney Disease: No - ENDOCRINE/METABOLIC Hx Endocrine Disorders: No - HEMATOLOGICAL/ONCOLOGICAL Hx Blood Disorders: No Hx AIDS: No Hx Human Immunodeficiency Virus (HIV): No - INTEGUMENTARY Hx Dermatological Problems: No - MUSCULOSKELETAL/RHEUMATOLOGICAL Hx Musculoskeletal Disorders: Yes Hx Arthritis: Yes (knees) Hx Falls: No Other/Comment: Arthoplasty ,Rt TKR on 01/22/17 - GASTROINTESTINAL Hx Gastrointestinal Disorders: No - GENITOURINARY/GYNECOLOGICAL Hx Genitourinary Disorders: No - PSYCHIATRIC Hx Psychophysiologic Disorder: No Hx Substance Use: No - SURGICAL HISTORY Hx Surgeries: Yes Hx Appendectomy: Yes - ANESTHESIA Hx Anesthesia: Yes Hx Anesthesia Reactions: No Has any member of the family had a problem w/ anesthesia?: No Meds Allergies/Adverse Reactions: Allergies Allergy/AdvReac Type Severity Reaction Status Date / Time No Known Allergies Allergy Verified 03/21/18 08:03 - Medications Medications: as per med rec Physical Exam - Constitutional Appears: Well, No Acute Distress - Head Exam Head Exam: ATRAUMATIC, NORMOCEPHALIC - Eye Exam Eye Exam: EOMI, Normal appearance, PERRL - ENT Exam ENT Exam: Mucous Membranes Moist - Respiratory Exam Respiratory Exam: NORMAL BREATHING PATTERN - Cardiovascular Exam Cardiovascular Exam: REGULAR RHYTHM, +S1, +S2 - GI/Abdominal Exam GI & Abdominal Exam: Normal Bowel Sounds, Soft - Extremities Exam Additional comments: R knee: Wet to dry dressing intact inferior wound breakdown with fibrinous tissue overlaying, minimal serous drainage mild swelling, no tenderness mid ramos protrusion without tenderness sensation intact SP/DP/TN motor intact EHL/FHL/TA/G pedal pulses intact comps soft NT - Neurological Exam Neurological exam: Alert, Oriented x3 - Psychiatric Exam Psychiatric exam: Normal Affect, Normal Mood - Skin Skin Exam: Normal Color, Warm Results - Vital Signs Recent Vital Signs: Last Vital Signs Temp 98.5 F 03/21/18 07:25 Pulse 76 03/21/18 07:25 Resp 20 03/21/18 07:25 BP 148/79 03/21/18 07:29 Pulse Ox 98 03/21/18 07:25 Assessment & Plan (1) Impaired skin integrity associated with surgical incision Assessment and Plan: -Dr. Plummer proposes right knee irrigation and debridement of the surgical wound breakdown -Risks/benefits/alternatives were explained to the patient who expresses understanding and agrees to proceed with procedure. -T&S -NPO -admit to hospitalist -ID consult Dr. Bolivar -above d/w Dr. Plummer in agreement Status: Acute
--- NOTE | 2018-03-21 08:23 | CP.PCM.HP ---
History of Present Illness - History of Present Illness History of Present Illness: 67 year old female with a past medical history of HTN, HLD, and OA, s/p right TKR on 01/22/18 after failing conservative management. She was subsequently discharged in stable condition after a stay in TCU for physical therapy. However , over the past week the patient has noticed increased purulent drainage from the knee wound site along with redness and swelling of the knee. She is now for OR today with Dr. Plummer for right TKR revision today. She denies any cp, sob, n/v/d, fevers, chills, or recent illnesses. Present on Admission - Present on Admission Any Indicators Present on Admission: No History of DVT/PE: No History of Uncontrolled Diabetes: No Review of Systems - Review of Systems Review of Systems: A 12 point review of systems was conducted and found to be negative other than what was mentioned in the HPI. Past Patient History - Infectious Disease Hx of Infectious Diseases: None - Tetanus Immunizations Tetanus Immunization: Unknown - Past Medical History & Family History Past Medical History?: Yes - Past Social History Smoking Status: Never Smoked Chewing Tobacco Use: No Alcohol: None Drugs: Denies - CARDIAC Hx Cardiac Disorders: Yes Hx Hypertension: Yes - PULMONARY Hx Respiratory Disorders: No - NEUROLOGICAL Hx Neurological Disorder: No - HEENT Hx HEENT Problems: No - RENAL Hx Chronic Kidney Disease: No - ENDOCRINE/METABOLIC Hx Endocrine Disorders: No - HEMATOLOGICAL/ONCOLOGICAL Hx Blood Disorders: No Hx AIDS: No Hx Human Immunodeficiency Virus (HIV): No - INTEGUMENTARY Hx Dermatological Problems: No - MUSCULOSKELETAL/RHEUMATOLOGICAL Hx Musculoskeletal Disorders: Yes Hx Arthritis: Yes (knees) Hx Falls: No Other/Comment: Arthoplasty ,Rt TKR on 01/22/17 - GASTROINTESTINAL Hx Gastrointestinal Disorders: No - GENITOURINARY/GYNECOLOGICAL Hx Genitourinary Disorders: No - PSYCHIATRIC Hx Psychophysiologic Disorder: No Hx Substance Use: No - SURGICAL HISTORY Hx Surgeries: Yes Hx Appendectomy: Yes - ANESTHESIA Hx Anesthesia: Yes Hx Anesthesia Reactions: No Has any member of the family had a problem w/ anesthesia?: No Meds Allergies/Adverse Reactions: Allergies Allergy/AdvReac Type Severity Reaction Status Date / Time No Known Allergies Allergy Verified 03/21/18 08:03 Physical Exam - Additional Findings Additional findings: Physical exam: Constitutional- cooperative, awake, alert Head- NCAT, PERRL Eye- PERRL, EOMI ENT- normal exam, MMM. Neck- normal inspection, supple, no JVD Respiratory- CTAB, no wheezes rales rhonchi Cardiovascular- RRR, +S1, +S2 no MRG GI/Abdominal- normal bowel sounds, soft, no mass, no hsm Skin- warm, dry Extremities Exam- + Right knee erythematous, edematous. normal capillary refill , normal inspection Neurological Exam- alert, awake, oriented Psych- normal mood, normal affect Results - Vital Signs Recent Vital Signs: Last Vital Signs Temp 98.5 F 03/21/18 07:25 Pulse 76 03/21/18 07:25 Resp 20 03/21/18 07:25 BP 148/79 03/21/18 07:29 Pulse Ox 98 03/21/18 07:25 - EKG Data EKG Interpreted by: Myself EKG shows normal: Sinus rhythm, [place], Intervals, QRS complexes, ST-T waves Rate: Normal Assessment & Plan - Assessment and Plan (Free Text) Plan: 67 year old female with a past medical history of HTN, HLD, and OA, s/p right TKR on 01/22/18 after failing conservative management. She was subsequently discharged in stable condition after a stay in TCU for physical therapy. However , over the past week the patient has noticed increased purulent drainage from the knee wound site along with redness and swelling of the knee. She has been given PO Levaquin without improvement. She is now for OR today with Dr. Plummer for right TKR revision today. She denies any cp, sob, n/v/d, fevers, chills, or recent illnesses. 1. Right TKR revision Patient medically stable for surgery and may proceed Orthopedic consultation with Dr. Plummer For OR today ID consultation with Dr. Jaffe, will f/u with antibiotic recs 2. HTN BP stable continue Amlodipine, Coreg, Losartan and HCTZ 3. HLD continue Lipitor 4. DVT prophylaxis - SCDs / as per ortho
[2018-03-21] MEDS ORDERED: Lactated Ringer's 1,000 ML IV ONE (08:30)
[2018-03-21] MEDS ORDERED: GELATIN SPONGE,ABSORB/PORCINE 1 EACH SPONGE TP ONE (08:55)
[2018-03-21] MEDS ORDERED: Bacitracin Ointment 30 GM TUBE ONE (08:55)
[2018-03-21] MEDS ORDERED: ceFAZolin IV 2 gm in Dextrose 2 GM/50 ML BAG IVPB ONE (08:55)
[2018-03-21] MEDS ORDERED: Thrombin Topical 5,000 Int Units Spray Kit ONE (08:55)
--- NOTE | 2018-03-21 10:00 | CARD ---
APPROVED REPORT Date of service: 03/21/2018 EKG Measurement Heart [id number] CT [id number] <Conclusion> Normal sinus rhythm late transition prolonged QT abnormal ECG
[2018-03-21] MEDS ORDERED: Propofol 10 mg/ml Inj (20 ML) ONE (11:24)
[2018-03-21] MEDS ORDERED: Succinylcholine 200 mg/10 ml Inj IV ONE (11:24)
[2018-03-21] MEDS ORDERED: Lidocaine 1% 5ml Abboject IV ONE (11:25)
[2018-03-21] MEDS ORDERED: Lidocaine 2% Jelly (5 ml) TOP ONE (11:29)
[2018-03-21] MEDS ORDERED: Sodium Chloride 0.9% 500 ML IV ONE (12:00)
[2018-03-21] MEDS ORDERED: ePHEDrine 50 mg/ml Inj ONE (12:34)
[2018-03-21] MEDS ORDERED: EPINEPHrine 1 mg/ml (1:1000) Inj ONE (12:59)
[2018-03-21] MEDS ORDERED: Gentamicin 80 mg/2mL Inj. ONE ×2 (13:27→13:33)
[2018-03-21 14:18] LABS: FLUID TYPE SYNOVIAL FLUID
--- NOTE | 2018-03-21 14:56 | PCM.SURG1 ---
Surgeon's Initial Post Op Note - Surgeon's Notes Surgeon: Kavitha Condenser Winder: EKTA Castelan/ 2nd assist Azam Elizondo PA-C Type of Anesthesia: General Endo Anesthesia Administered By: DR Barry Champion Pre-Operative Diagnosis: wound drainage- s/p R TKR. cemetophyte R tibia distal to prosthesis Operative Findings: as above. wound drainage with 4-6 WBC's /hi power field Post-Operative Diagnosis: as above Operation Performed: arthrotomy R knee. incision/drainage r knee. excision/ skin subcutaneous tissue and muscle. debridement cementophyte. insertion abio impregnated pellets. positioning of fluor/interprattion of video images Specimen/Specimens Removed: cemetophyte. synovial fluid. skin/subcutaeous tissue and muscle Estimated Blood Loss: EBL {In ML}: 125 Blood Products Given: N/A Drains Used: No Drains Post-Op Condition: Fair Date of Surgery/Procedure: 03/21/18 Time of Surgery/Procedure: 12:45 (time in room 11:45/jennifersa iunduction time 11:45)
[2018-03-21] MEDS ORDERED: DiphenhydrAMINE 50 mg/ml Inj IVP PRN (15:05)
[2018-03-21 15:18] LABS: FLUID TYPE SYNOVIAL FLUID
[2018-03-21 15:22] LABS: SF GROSS APPEARANCE BLOODY (CLEAR); SYNOVIAL FLUID MONO/MACROPHAGE 11 % (0-0)
[2018-03-21 15:22] LABS: SF GROSS APPEARANCE BLOODY (CLEAR)
[2018-03-21 15:26] LABS: SYNOVIAL FLUID COMMENT BLOODY
[2018-03-21] MEDS: HYDROmorphone 0.5 mg/0.5 ml ISec IVP PRN ×4 (15:30→17:15)
[2018-03-21] MEDS ORDERED: HYDROmorphone 1 mg/ml ISec ONE ×2 (15:30→15:52)
[2018-03-21 15:59] LABS: SYNOVIAL FLUID COMMENT BLOODY
[2018-03-21 16:00] LABS: SYNOVIAL FLUID MONO/MACROPHAGE 7 % (0-0)
--- NOTE | 2018-03-21 16:58 | RAD ---
Date of service: 03/21/2018 PROCEDURE: Right Knee Radiographs. HISTORY: s/p R knee I D COMPARISON: Right knee radiographs 01/22/2018. FINDINGS: BONES: No interval fracture subluxation or dislocation is appreciated. A status post apparent incision and drainage procedure with interval rounded radiodensities scattered in the infrapatellar spaces well as adjacent to the proximal right tibial periosteum suggestive of antibiotic delivery vehicle. Skin sekou are identified anteriorly emboli at the level of the tibia with a few at the level of the distal femur. Orthopedic hardware appears stable in position without evidence to suggest loosening at this time. Limited postoperative changes are identified with limited but diminished gas identified anterior knee superficial and deep soft tissues. JOINTS: As above. JOINT EFFUSION: As above. OTHER FINDINGS: None. IMPRESSION: Status post incision and drainage procedure with residual rounded radiodensities scattered at the patellar midline knee soft tissues and adjacent to the proximal right tibia suggestive of antibiotic deployment. Postop changes are identified. Orthopedic hardware stable in position.
--- NOTE | 2018-03-21 17:06 | RAD ---
Date of service: 03/21/2018 PROCEDURE: Radiographs of the right tibia and fibula. HISTORY: s/p R knee I D COMPARISON: Right knee 03/21/2018 and right knee 01/22/2018 TECHNIQUE: Frontal and lateral views obtained. FINDINGS: BONES: Lucency in the anterior mid tibial cortex is noted previously deformity was noted on the 01/22/2018 study here. These anterior tibial stem orientation here is similar. The orthopedic knee replacement prosthesis and screws appear otherwise unremarkable and unchanged. The multiple radio opacities in the infrapatellar soft tissues and blending in with the anterior tibial cortex an anterior soft tissues is renoted. Anterior skin sutures in bandaging noted. History states prior incision and drainage. Anterior skin changes compatible with this. JOINT SPACES: Unremarkable. OTHER FINDINGS: None. IMPRESSION: Soft tissue changes compatible with recent surgical intervention. Correlate clinically. No interval fracture seen. Anterior mid tibial shaft cortical lucent appearance noted-correlate clinically .
[2018-03-21] MEDS: DAPTOmycin 500 MG in Sodium Chloride 0.9% 100 ML IV SCH (21:24)
[2018-03-21] MEDS: Docusate-Senna 50 mg-8.6 mg Tab PO SCH (21:27)
[2018-03-21] MEDS: Lactated Ringer's 1,000 ML IV SCH (21:28)
[2018-03-21] MEDS: oxyCODONE 10 mg Immediate Release Tab PO PRN (23:38)
[2018-03-22] MEDS: Lactated Ringer's 1,000 ML IV SCH ×5 (04:17→18:39)
[2018-03-22 06:20] LABS: BASO % 0.6 % (0.0-2.0); EOS # 0.1 K/uL (0.0-0.7); EOS % 1.5 % (0.0-4.0); HEMOGLOBIN 9.3 g/dL (12.0-16.0); LYMPH # 0.9 K/uL (1.0-4.3); LYMPH % 11.5 % (20.0-40.0); MEAN CORPUSCULAR HEMOGLOBIN 30.2 pg (27.0-31.0); MEAN CORPUSCULAR HGB CONC 33.5 g/dL (33.0-37.0); MEAN PLATELET VOLUME 7.7 fl (7.2-11.7); MONO # 0.6 K/uL (0.0-0.8); MONO % 7.8 % (0.0-10.0); NEUT % 78.6 % (50.0-75.0); RBC 3.09 Mil/uL (3.80-5.20); WHITE BLOOD COUNT 7.7 K/uL (4.8-10.8)
[2018-03-22 07:31] LABS: ALB/GLOB RATIO 0.9 (1.0-2.1); ALT/SGPT 14 U/L (9-52); AST/SGOT 17 U/L (14-36); BLOOD UREA NITROGEN 20 mg/dl (7-17); CALCIUM 8.7 mg/dL (8.4-10.2); GFR NON-AFRICAN AMERICAN 55
--- NOTE | 2018-03-22 07:37 | CON ---
Copied To: Alejandro Bolivar MD Attending MD: Alejandro Bolivar MD DATE: 03/21/2018 INFECTIOUS DISEASE CONSULT LOCATION: The patient is in room 651. HISTORY OF PRESENT ILLNESS: She is a 67-year-old female whose past medical history includes hypertension, hyperlipidemia, and had a right total knee replacement which was done on 01/22/2018. She was discharged from the hospital after approximately 2 weeks in the TCU for physical therapy. In the second week of February, a scab was noted. Dr. Plummer saw it, and there was a little bit of serosanguineous drainage from that, and since that time, has continued to have some significant more drainage, and Dr. Plummer decided to admit her for treatment for either a TKR revision or to take a look and see what was going on. The patient has denied any shortness of breath, fever, or chills, and once seen, she was just out of the OR. The history was mostly taken from her daughter and son. PHYSICAL EXAMINATION: Initially postop. HEENT: Within normal limits. NECK: Supple. LUNGS: Unable to get significant inspiratory inspiration, but it was clear, what I heard. HEART: Regular sinus rhythm. ABDOMEN: Soft. Positive bowel sounds. EXTREMITIES: The right leg is noted to be splinted with a dressing. Dr. Plummer did the appropriate cultures for which I am waiting, that was done without antibiotics today, although she took oral antibiotics up to yesterday, and possibly we will not be able to see what the bacteria, if any will grow. Dr. Plummer did an arthrotomy of right knee, incision and drainage of right knee, excision of skin, subcutaneous tissue, and muscle, debridement of cementified insertion, antibiotic-impregnated , positioning was done. LABORATORIES: Show a synovial fluid of 314 WBC, blood 123,297, neutrophils 81%, synovial lymphocytes 12, and it was bloody. Her creatinine is 1.2, GFR is 45. PLAN: We will start her on daptomycin and the dose is 6 mg per kg. Await cultures. Alejandro Bolivar MD
--- NOTE | 2018-03-22 07:56 | CP.PCM.PN ---
Subjective - Date & Time of Evaluation Date of Evaluation: 03/22/18 Time of Evaluation: 07:45 - Subjective Subjective: Patient seen and examined at bedside comfortable. Pain is 5/10 well controlled. No acute events overnight. Denies CP/SOB/dizziness. Objective - Vital Signs/Intake and Output Vital Signs (last 24 hours): Temp Pulse Resp BP Pulse Ox 97.8 F 81 19 121/65 97 03/22/18 05:08 03/22/18 05:08 03/22/18 05:08 03/22/18 05:08 03/22/18 05:08 - Medications Medications: Current Medications Acetaminophen (Tylenol 325mg Tab) 975 mg PO Q6 [facility] Last Admin: 03/22/18 04:14 Dose: 975 mg Allopurinol (Zyloprim) 100 mg PO DAILY [facility] Amlodipine Besylate (Norvasc) 5 mg PO DAILY [facility] Atorvastatin Calcium (Lipitor) 20 mg PO DAILY@2200 [facility] Last Admin: 03/21/18 21:26 Dose: 20 mg Carvedilol (Coreg) 6.25 mg PO BID [facility] Enoxaparin Sodium (Lovenox) 40 mg SC DAILY [facility] PRN Reason: Protocol Ferrous Sulfate (Feosol) 325 mg PO BID [facility] Last Admin: 03/21/18 17:00 Dose: Not Given Folic Acid (Folic Acid) 1 mg PO DAILY [facility] Hydrochlorothiazide (Microzide) 12.5 mg PO DAILY [facility] Lactated Ringer's (Lactated Ringer's) 1,000 mls @ 75 mls/hr IV .[id number] [facility] Last Admin: 03/22/18 04:17 Dose: 75 mls/hr Lactated Ringer's (Lactated Ringer's) 1,000 mls @ 75 mls/hr IV .[id number] [facility] Last Admin: 03/21/18 21:28 Dose: Not Given Daptomycin 500 mg/ Sodium (Chloride) 100 mls @ 100 mls/hr IV Q48H [facility] PRN Reason: Protocol Stop: 03/26/18 19:46 Last Admin: 03/21/18 21:24 Dose: 100 mls/hr Losartan Potassium (Cozaar) 100 mg PO DAILY [facility] Morphine Sulfate (Morphine) 4 mg IVP Q4 PRN PRN Reason: Pain, severe (8-10) Multivitamins/Minerals (Therapeutic-M Tab) 1 tab PO DAILY [facility] Oxycodone HCl (Oxycodone Immediate Release Tab) 10 mg PO Q6 PRN PRN Reason: Pain, moderate (4-7) Last Admin: 03/21/18 23:38 Dose: 10 mg Senna/Docusate Sodium (Senokot S 50 Mg-8.6 Mg) 2 tab PO HS [facility] Last Admin: 03/21/18 21:27 Dose: Not Given - Labs Labs: 03/22/18 05:15 03/22/18 05:15 - Extremities Exam Additional comments: R knee: knee imm intact, Dressings CDI sensation intact SP/DP/TN motor intact EHL/FHL/TA/G pedal pulses intact comps soft NT Assessment and Plan (1) Septic arthritis of knee, right Assessment & Plan: POD#1 s/p R knee I&D, soft tissue debridement, cementophyte debridement -maintain knee imm, no to be removed -pain control -abx as per ID, will follow cultures, may need PICC -PT/OT FF 10% WB -DVT ppx -discharge planning to home -above d/w Dr. Plummer in agreement Status: Acute
[2018-03-22] MEDS: Enoxaparin 40 mg Syringe SC SCH (08:52)
[2018-03-22] MEDS: Multivitamin With Minerals Tab PO SCH (08:53)
--- NOTE | 2018-03-22 09:51 | CP.PCM.CON ---
History of Present Illness - History of Present Illness History of Present Illness: THE PATIENT IS A 67 YEAR OLD FEMALE WHO UNDERWENT A RIGHT TKR TWO MONTHS AGO AND NOTICED PURULENT DRAINAGE OVER THE WOUND FOR THE PAST WEEK AND SAW DR DEE WHO PERFORMED AN I AND D AND REVISION INCLUDING THE INSERTION OF ANTIBIOTIC INPREGNATED PELLETS. CARDIOLOGY WAS ASKED TO SEE HER POST- OPERATIVELY. SHE HAS A HISTORY OF HYPERTENSION AND HYPERLIPIDEMIA. SHE DENIES CHEST PAIN OR SOB. Past Patient History - Infectious Disease Hx of Infectious Diseases: None - Tetanus Immunizations Tetanus Immunization: Unknown - Past Medical History & Family History Past Medical History?: Yes Past Family History: Reviewed and not pertinent - Past Social History Smoking Status: Never Smoked Chewing Tobacco Use: No Alcohol: None Drugs: Denies - CARDIAC Hx Cardiac Disorders: Yes Hx Hypertension: Yes - PULMONARY Hx Respiratory Disorders: No - NEUROLOGICAL Hx Neurological Disorder: No - HEENT Hx HEENT Problems: No - RENAL Hx Chronic Kidney Disease: No - ENDOCRINE/METABOLIC Hx Endocrine Disorders: No - HEMATOLOGICAL/ONCOLOGICAL Hx Blood Disorders: No Hx AIDS: No Hx Human Immunodeficiency Virus (HIV): No - INTEGUMENTARY Hx Dermatological Problems: No - MUSCULOSKELETAL/RHEUMATOLOGICAL Hx Musculoskeletal Disorders: Yes Hx Arthritis: Yes (knees) Hx Falls: No Other/Comment: Arthoplasty ,Rt TKR on 01/22/17 - GASTROINTESTINAL Hx Gastrointestinal Disorders: No - GENITOURINARY/GYNECOLOGICAL Hx Genitourinary Disorders: No - PSYCHIATRIC Hx Psychophysiologic Disorder: No Hx Substance Use: No - SURGICAL HISTORY Hx Surgeries: Yes Hx Appendectomy: Yes - ANESTHESIA Hx Anesthesia: Yes Hx Anesthesia Reactions: No Has any member of the family had a problem w/ anesthesia?: No Meds Allergies/Adverse Reactions: Allergies Allergy/AdvReac Type Severity Reaction Status Date / Time No Known Allergies Allergy Verified 03/21/18 08:03 - Medications Medications: Current Medications Acetaminophen (Tylenol 325mg Tab) 975 mg PO Q6 [facility] Last Admin: 03/22/18 09:44 Dose: 975 mg Allopurinol (Zyloprim) 100 mg PO DAILY [facility] Last Admin: 03/22/18 08:53 Dose: 100 mg Amlodipine Besylate (Norvasc) 5 mg PO DAILY [facility] Last Admin: 03/22/18 08:53 Dose: 5 mg Atorvastatin Calcium (Lipitor) 20 mg PO DAILY@2200 [facility] Last Admin: 03/21/18 21:26 Dose: 20 mg Carvedilol (Coreg) 6.25 mg PO BID [facility] Last Admin: 03/22/18 08:53 Dose: 6.25 mg Enoxaparin Sodium (Lovenox) 40 mg SC DAILY [facility] PRN Reason: Protocol Last Admin: 03/22/18 08:52 Dose: 40 mg Ferrous Sulfate (Feosol) 325 mg PO BID [facility] Last Admin: 03/22/18 08:53 Dose: 325 mg Folic Acid (Folic Acid) 1 mg PO DAILY [facility] Last Admin: 03/22/18 08:53 Dose: 1 mg Hydrochlorothiazide (Microzide) 12.5 mg PO DAILY [facility] Last Admin: 03/22/18 08:54 Dose: 12.5 mg Lactated Ringer's (Lactated Ringer's) 1,000 mls @ 75 mls/hr IV .[id number] [facility] Last Admin: 03/22/18 08:54 Dose: Not Given Lactated Ringer's (Lactated Ringer's) 1,000 mls @ 75 mls/hr IV .[id number] [facility] Last Admin: 03/22/18 08:54 Dose: Not Given Daptomycin 500 mg/ Sodium (Chloride) 100 mls @ 100 mls/hr IV Q48H [facility] PRN Reason: Protocol Stop: 03/26/18 19:46 Last Admin: 03/21/18 21:24 Dose: 100 mls/hr Losartan Potassium (Cozaar) 100 mg PO DAILY [facility] Last Admin: 03/22/18 08:53 Dose: 100 mg Morphine Sulfate (Morphine) 4 mg IVP Q4 PRN PRN Reason: Pain, severe (8-10) Multivitamins/Minerals (Therapeutic-M Tab) 1 tab PO DAILY [facility] Last Admin: 03/22/18 08:53 Dose: 1 tab Oxycodone HCl (Oxycodone Immediate Release Tab) 10 mg PO Q6 PRN PRN Reason: Pain, moderate (4-7) Last Admin: 03/21/18 23:38 Dose: 10 mg Senna/Docusate Sodium (Senokot S 50 Mg-8.6 Mg) 2 tab PO HS [facility] Last Admin: 03/21/18 21:27 Dose: Not Given Physical Exam - Respiratory Exam Respiratory Exam: Clear to Auscultation Bilateral - Cardiovascular Exam Cardiovascular Exam: REGULAR RHYTHM, +S1, +S2 - Extremities Exam Additional comments: RLE WITH SURGICAL DRESSINGS - Additional Findings Additional findings: EKG NSR Results - Vital Signs Recent Vital Signs: Last Vital Signs Temp 98.6 F 03/22/18 08:11 Pulse 79 03/22/18 08:53 Resp 20 03/22/18 08:11 BP 137/81 03/22/18 08:11 Pulse Ox 98 03/22/18 08:11 - Labs Result Diagrams: 03/22/18 05:15 03/22/18 05:15 Labs: Laboratory Results - last 24 hr 03/21/18 03/21/18 03/21/18 08:26 13:35 15:16 WBC RBC Hgb Hct MCV MCH MCHC RDW Plt Count MPV Neut % (Auto) Lymph % (Auto) [place] % (Auto) Eos % (Auto) Baso % (Auto) Neut # (Auto) Lymph # (Auto) [place] # (Auto) Eos # (Auto) Baso # (Auto) Sodium Potassium Chloride Carbon Dioxide Anion Gap BUN Creatinine Est GFR ( Amer) Est GFR (Non-Af Amer) Random Glucose Calcium Total Bilirubin AST ALT Alkaline Phosphatase Total Creatine Kinase Total Protein Albumin Globulin Albumin/Globulin Ratio Fluid Type Synovial fluid Synovial fluid Synovial WBC 151.0 H 314.0 H Synovial RBC 652225.0 H 580535.0 H Synovial Neutrophils 81.0 H 81.0 H Synovial Lymphocytes 8.0 H 12.0 H Synov Monos/Macrophage 11 H 7 H Synovial Fluid Comment Bloody Bloody Blood Type O POSITIVE Antibody Screen Negative Crossmatch See Detail BBK History Checked Patient has bt 03/22/18 03/22/18 05:15 05:15 WBC 7.7 RBC 3.09 L Hgb 9.3 L D Hct 27.8 L MCV 90.0 MCH 30.2 MCHC 33.5 RDW 14.0 Plt Count 261 MPV 7.7 Neut % (Auto) 78.6 H Lymph % (Auto) 11.5 L [place] % (Auto) 7.8 Eos % (Auto) 1.5 Baso % (Auto) 0.6 Neut # (Auto) 6.0 Lymph # (Auto) 0.9 L [place] # (Auto) 0.6 Eos # (Auto) 0.1 Baso # (Auto) 0.0 Sodium 139 Potassium 4.6 Chloride 108 H Carbon Dioxide 23 Anion Gap 13 BUN 20 H Creatinine 1.0 Est GFR ( Amer) > 60 Est GFR (Non-Af Amer) 55 Random Glucose 118 H Calcium 8.7 Total Bilirubin 0.5 AST 17 ALT 14 Alkaline Phosphatase 50 Total Creatine Kinase 34 Total Protein 6.5 Albumin 3.0 L D Globulin 3.5 Albumin/Globulin Ratio 0.9 L Fluid Type Synovial WBC Synovial RBC Synovial Neutrophils Synovial Lymphocytes Synov Monos/Macrophage Synovial Fluid Comment Blood Type Antibody Screen Crossmatch BBK History Checked Assessment & Plan - Assessment and Plan (Free Text) Assessment: S/P RIGHT KNEE I AND D FOR DRAINAGE HYPERTENSION HYPERLIPIDEMIA Plan: CONTINUE ANTIBIOTICS, CARVEDILOL, LOSARTAN, LOVENOX, ATORVASTATIN AND AMLODIPINE
[2018-03-22] MEDS: oxyCODONE 10 mg Immediate Release Tab PO PRN (13:43)
--- NOTE | 2018-03-22 17:03 | CP.PCM.PN ---
Subjective - Date & Time of Evaluation Date of Evaluation: 03/22/18 Time of Evaluation: 10:00 - Subjective Subjective: Patient seen and examined this morning. She is comfortable this morning with pain medication. She denies any cp, sob, n/v/d, fevers, chills, or recent illnesses. For PICC placement tomorrow for IV antibiotics. Cultures pending. Objective - Vital Signs/Intake and Output Vital Signs (last 24 hours): Temp Pulse Resp BP Pulse Ox 99.1 F 77 18 117/75 95 03/22/18 15:52 03/22/18 16:20 03/22/18 15:52 03/22/18 16:20 03/22/18 15:52 - Medications Medications: Current Medications Acetaminophen (Tylenol 325mg Tab) 975 mg PO Q6 [facility] Last Admin: 03/22/18 16:21 Dose: 975 mg Allopurinol (Zyloprim) 100 mg PO DAILY [facility] Last Admin: 03/22/18 08:53 Dose: 100 mg Amlodipine Besylate (Norvasc) 5 mg PO DAILY [facility] Last Admin: 03/22/18 08:53 Dose: 5 mg Atorvastatin Calcium (Lipitor) 20 mg PO DAILY@2200 [facility] Last Admin: 03/21/18 21:26 Dose: 20 mg Carvedilol (Coreg) 6.25 mg PO BID [facility] Last Admin: 03/22/18 16:20 Dose: 6.25 mg Enoxaparin Sodium (Lovenox) 40 mg SC DAILY [facility] PRN Reason: Protocol Last Admin: 03/22/18 08:52 Dose: 40 mg Ferrous Sulfate (Feosol) 325 mg PO BID [facility] Last Admin: 03/22/18 16:20 Dose: 325 mg Folic Acid (Folic Acid) 1 mg PO DAILY [facility] Last Admin: 03/22/18 08:53 Dose: 1 mg Hydrochlorothiazide (Microzide) 12.5 mg PO DAILY [facility] Last Admin: 03/22/18 08:54 Dose: 12.5 mg Lactated Ringer's (Lactated Ringer's) 1,000 mls @ 75 mls/hr IV .[id number] [facility] Last Admin: 03/22/18 08:54 Dose: Not Given Lactated Ringer's (Lactated Ringer's) 1,000 mls @ 75 mls/hr IV .[id number] [facility] Last Admin: 03/22/18 08:54 Dose: Not Given Daptomycin 500 mg/ Sodium (Chloride) 100 mls @ 100 mls/hr IV Q48H [facility] PRN Reason: Protocol Stop: 03/26/18 19:46 Last Admin: 03/21/18 21:24 Dose: 100 mls/hr Losartan Potassium (Cozaar) 100 mg PO DAILY [facility] Last Admin: 03/22/18 08:53 Dose: 100 mg Morphine Sulfate (Morphine) 4 mg IVP Q4 PRN PRN Reason: Pain, severe (8-10) Multivitamins/Minerals (Therapeutic-M Tab) 1 tab PO DAILY [facility] Last Admin: 03/22/18 08:53 Dose: 1 tab Oxycodone HCl (Oxycodone Immediate Release Tab) 10 mg PO Q6 PRN PRN Reason: Pain, moderate (4-7) Last Admin: 03/22/18 13:43 Dose: 10 mg Senna/Docusate Sodium (Senokot S 50 Mg-8.6 Mg) 2 tab PO HS [facility] Last Admin: 03/21/18 21:27 Dose: Not Given - Labs Labs: 03/22/18 05:15 03/22/18 05:15 - Additional Findings Additional findings: Physical exam: Constitutional- cooperative, awake, alert Head- NCAT, PERRL Eye- PERRL, EOMI ENT- normal exam, MMM. Neck- normal inspection, supple, no JVD Respiratory- CTAB, no wheezes rales rhonchi Cardiovascular- RRR, +S1, +S2 no MRG GI/Abdominal- normal bowel sounds, soft, no mass, no hsm Skin- warm, dry Extremities Exam- + Right knee dressing c/d/i. normal capillary refill, normal inspection Neurological Exam- alert, awake, oriented Psych- normal mood, normal affect Assessment and Plan - Assessment and Plan (Free Text) Plan: 67 year old female with a past medical history of HTN, HLD, and OA, s/p right TKR on 01/22/18 after failing conservative management. She was subsequently discharged in stable condition after a stay in TCU for physical therapy. However , over the past week the patient has noticed increased purulent drainage from the knee wound site along with redness and swelling of the knee. She has been given PO Levaquin without improvement. She is now for OR today with Dr. Plummer for right TKR revision today. She denies any cp, sob, n/v/d, fevers, chills, or recent illnesses. 1. Right TKR revision Patient medically stable for surgery and may proceed Orthopedic consultation with Dr. Plummer For OR today ID consultation with Dr. Jaffe, will f/u with antibiotic recs 2. HTN BP stable continue Amlodipine, Coreg, Losartan and HCTZ Dr. Mckeon on consultation for cardiology, appreciated. 3. HLD continue Lipitor 4. DVT prophylaxis - SCDs / as per ortho
[2018-03-22] MEDS: Docusate-Senna 50 mg-8.6 mg Tab PO SCH (21:50)
--- NOTE | 2018-03-23 02:56 | OP ---
Copied To: Len Plummer MD Attending MD: Len Plummer MD PROCEDURE DATE: 03/21/2018 LOCATION: [facility]. PREOPERATIVE DIAGNOSES: 1. Wound drainage status post successful right total knee replacement arthroplasty. 2. Cementified right tibia and distal the prosthesis. OPERATIVE FINDINGS: As above. 1. Wound drainage with four to six white cells per high-power field, but no evidence of bacteria. 2. Cementified. 3. Excoriation of skin. POSTOPERATIVE DIAGNOSES: As above. OPERATIVE PROCEDURES: 1. Arthrotomy of the right knee. 2. Incision and drainage of the right knee. 3. Excision of skin and subcutaneous tissue and muscle. 4. Debridement of cementified. 5. Insertion of antibiotic impregnated pellets. 6. Positioning of fluoroscope and interpretation of video images. SURGEON: Len Plummer MD ELECTROCHEMIST: CARA Adam, certified registered nursing marketing operations assistant. SECOND COMMERCIAL FINANCE ANALYST: Azam Elizondo PA-C. ANESTHESIA: General endotracheal anesthesia. ANESTHESIOLOGIST: Barry Champion MD SPECIMENS REMOVED: 1. Cementified. 2. Synovial fluid, which was sent to the lab, four to six white cells per high-power field were derived with no evidence of bacteria. Secondary specimen is 10 white cells, which possibly may be contaminant. Skin, subcutaneous tissue, and muscle was excised and sent as specimen. BLOOD LOSS: Approximately 125 mL. BLOOD PRODUCTS: No blood products given. DRAINS: No drains. POSTOPERATIVE CONDITION: Stable/fair. TIME OF SURGERY: Time in the room 11:45, anesthesia induction time 11:45 a.m., surgical incision time 12:45. OPERATIVE INDICATION: Alma Gomez is a 67-year-old woman who had preexisting peripheral vascular disease with evidence of stasis dermatitis, who underwent successful total knee replacement of the right knee at the patient's and her family's insistence. The patient is doing quite well, again was not following straight admonitions, presented with nonpurulent wound drainage. This was diagnosed, Betadine wet-to-dry dressing changes were initiated with p.o. antibiotics. Drainage continues and the patient is taken as an emergency to the hospital for incision and drainage. Pros, cons, risks and benefits of same were discussed. Since the total knee is in the perioperative period, incision and drainage and insertion of antibiotic impregnated pellets are acceptable treatment options. The cementified with extrusion from the tibial canal is prominent and will be excised. After having obtained informed consent, after the satisfactory induction of general endotracheal anesthesia by Dr. Barry Champion, after having identified side, site and procedure and a critical pause/time-out, the patient identified as Alma Gomez in the supine position with all bony prominences well padded, the left lower extremity was prepped and free draped in usual fashion for lower extremity surgery. The tourniquet had been applied, but was not yet inflated. An incision was described from the mid aspect of the patella down to the area of excoriation with drainage to the area of the cementified. The skin incision was carried down through the skin, subcutaneous tissue. An ellipse of skin was removed. The dissection is carried down medially and laterally in the area of the retinaculum. A minor medial arthrotomy was accomplished. At this point in time, the synovial fluid is sent down for aerobic, anaerobic, AFB, and fungal cultures. This having been accomplished, the wound was thoroughly irrigated. Dissection was carried down to the cementified on the anterior aspect of the tibia. At this point using the oscillating saw and the high-power bur, the cement extrusion, and the cementified is debrided. Again, it should be noted that this was accomplished because the area of stasis dermatitis juxtaposes the initial tibial incision, tibial aspect of the total knee incision, and concern is for the skin later. This having been accomplished using the oscillating saw, the cement extrusion is debrided, the high-power bur smooth it to the area of the tibial cortex. There is no evidence of prosthetic extrusion. The wound was thoroughly irrigated. Attention now was turned to the field where proximally nine liters of antibiotic impregnated solution used to thoroughly irrigate and debride, so incision and drainage, irrigation, debridement of the knee was accomplished, excision of skin and subcutaneous tissue and muscle. The wound was thoroughly irrigated. An aliquot of fluid is sent from the joint as well for stat Gram stain, number of white cells per high-power field, aerobic, anaerobic, AFB and fungal cultures. This having been accomplished, the wound was thoroughly irrigated. Antibiotic beads were prepared using gentamicin and vancomycin. The antibiotic beads having been prepared, the antibiotic beads were introduced into the joint and in the subcutaneous tissues. Closure of the arthrotomy was with interrupted #1 Vicryl. The wound was thoroughly irrigated. Hemostasis controlled with the Aquamantys. Tourniquet had been deflated after a very short period to avoid the possible compromise of skin and to let blood into the area of questionable drainage. This having been accomplished, closure was in layers with interrupted Vicryl, 0 Vicryl, 2-0 Vicryl, sekou for skin and interrupted nylon. The skin was closed. The wound having been thoroughly irrigated. Solution of half Betadine and half saline was placed and the Betadine wet-to-dry mode. Jesus Alberto Rodrigez compression dressing and knee immobilizers applied. It should be noted that at the stage of cementified debridement under the surgeon's direction, the fluoroscope was positioned, video images were generated, therapeutic decisions were made therefrom. Jesus Alberto Rodrigez compression dressing and knee immobilizer having been applied. The operation could not have been completed without the assistantship of KIM Dobson and Guerita Garcia, certified registered nursing marketing operations assistant. Len Plummer MD
[2018-03-23 06:12] LABS: HEMOGLOBIN 9.3 g/dL (12.0-16.0); MEAN CELL VOLUME 89.4 fl (81.0-99.0); MEAN CORPUSCULAR HGB CONC 33.6 g/dL (33.0-37.0); RBC 3.1 Mil/uL (3.80-5.20); RED CELL DISTRIBUTION WIDTH 13.8 % (11.5-14.5); WHITE BLOOD COUNT 10.7 K/uL (4.8-10.8)
[2018-03-23 06:32] LABS: CALCIUM 8.8 mg/dL (8.4-10.2)
[2018-03-23] MEDS: Lactated Ringer's 1,000 ML IV SCH ×2 (07:30)
[2018-03-23] MEDS: Enoxaparin 40 mg Syringe SC SCH (08:52)
[2018-03-23] MEDS: Multivitamin With Minerals Tab PO SCH (08:52)
--- NOTE | 2018-03-23 09:00 | CP.PCM.PN ---
Subjective - Date & Time of Evaluation Date of Evaluation: 03/23/18 Time of Evaluation: 08:30 - Subjective Subjective: NO CHEST PAIN OR SOB Objective - Vital Signs/Intake and Output Vital Signs (last 24 hours): Temp Pulse Resp BP Pulse Ox 98.0 F 78 19 130/76 94 L 03/23/18 07:48 03/23/18 08:53 03/23/18 07:48 03/23/18 08:53 03/23/18 07:48 - Medications Medications: Current Medications Acetaminophen (Tylenol 325mg Tab) 975 mg PO Q6 [facility] Last Admin: 03/23/18 04:13 Dose: 975 mg Allopurinol (Zyloprim) 100 mg PO DAILY [facility] Last Admin: 03/23/18 08:53 Dose: 100 mg Amlodipine Besylate (Norvasc) 5 mg PO DAILY [facility] Last Admin: 03/23/18 08:53 Dose: 5 mg Atorvastatin Calcium (Lipitor) 20 mg PO DAILY@2200 [facility] Last Admin: 03/22/18 21:50 Dose: 20 mg Carvedilol (Coreg) 6.25 mg PO BID [facility] Last Admin: 03/23/18 08:53 Dose: 6.25 mg Enoxaparin Sodium (Lovenox) 40 mg SC DAILY [facility] PRN Reason: Protocol Last Admin: 03/23/18 08:52 Dose: 40 mg Ferrous Sulfate (Feosol) 325 mg PO BID [facility] Last Admin: 03/23/18 08:52 Dose: 325 mg Folic Acid (Folic Acid) 1 mg PO DAILY [facility] Last Admin: 03/23/18 08:52 Dose: 1 mg Hydrochlorothiazide (Microzide) 12.5 mg PO DAILY [facility] Last Admin: 03/23/18 08:53 Dose: 12.5 mg Lactated Ringer's (Lactated Ringer's) 1,000 mls @ 75 mls/hr IV .[id number] [facility] Last Admin: 03/23/18 07:30 Dose: Not Given Lactated Ringer's (Lactated Ringer's) 1,000 mls @ 75 mls/hr IV .[id number] [facility] Last Admin: 03/23/18 07:30 Dose: Not Given Daptomycin 500 mg/ Sodium (Chloride) 100 mls @ 100 mls/hr IV Q48H [facility] PRN Reason: Protocol Stop: 03/26/18 19:46 Last Admin: 03/21/18 21:24 Dose: 100 mls/hr Losartan Potassium (Cozaar) 100 mg PO DAILY [facility] Last Admin: 03/23/18 08:52 Dose: 100 mg Morphine Sulfate (Morphine) 4 mg IVP Q4 PRN PRN Reason: Pain, severe (8-10) Multivitamins/Minerals (Therapeutic-M Tab) 1 tab PO DAILY [facility] Last Admin: 03/23/18 08:52 Dose: 1 tab Oxycodone HCl (Oxycodone Immediate Release Tab) 10 mg PO Q6 PRN PRN Reason: Pain, moderate (4-7) Last Admin: 03/22/18 13:43 Dose: 10 mg Senna/Docusate Sodium (Senokot S 50 Mg-8.6 Mg) 2 tab PO HS [facility] Last Admin: 03/22/18 21:50 Dose: 2 tab - Labs Labs: 03/23/18 05:40 03/23/18 05:40 - Respiratory Exam Respiratory Exam: Clear to Ausculation Bilateral - Cardiovascular Exam Cardiovascular Exam: REGULAR RHYTHM, +S1, +S2 - Extremities Exam Additional comments: RLE WITH IMMOBOLIZER Assessment and Plan - Assessment and Plan (Free Text) Assessment: S/P RIGHT KNEE SURGERY HYPERTENSION HYPERLIPIDEMIA Plan: CONTINUE ANTIBIOTICS, CARVEDILOL, LOSARTAN, ATORVASTATIN, AMLODIPINE AND LOVENOX
--- NOTE | 2018-03-23 10:38 | CP.PCM.PN ---
Subjective - Date & Time of Evaluation Date of Evaluation: 03/23/18 Time of Evaluation: 10:36 - Subjective Subjective: Patient complaining of right knee pain. Getting into bed with min assistance from daughter. Denies CP/SOb/dizziness. Objective - Vital Signs/Intake and Output Vital Signs (last 24 hours): Temp Pulse Resp BP Pulse Ox 98.0 F 78 19 130/76 94 L 03/23/18 07:48 03/23/18 08:53 03/23/18 07:48 03/23/18 08:53 03/23/18 07:48 - Medications Medications: Current Medications Acetaminophen (Tylenol 325mg Tab) 975 mg PO Q6 [facility] Last Admin: 03/23/18 09:30 Dose: 975 mg Allopurinol (Zyloprim) 100 mg PO DAILY [facility] Last Admin: 03/23/18 08:53 Dose: 100 mg Amlodipine Besylate (Norvasc) 5 mg PO DAILY [facility] Last Admin: 03/23/18 08:53 Dose: 5 mg Atorvastatin Calcium (Lipitor) 20 mg PO DAILY@2200 [facility] Last Admin: 03/22/18 21:50 Dose: 20 mg Carvedilol (Coreg) 6.25 mg PO BID [facility] Last Admin: 03/23/18 08:53 Dose: 6.25 mg Enoxaparin Sodium (Lovenox) 40 mg SC DAILY [facility] PRN Reason: Protocol Last Admin: 03/23/18 08:52 Dose: 40 mg Ferrous Sulfate (Feosol) 325 mg PO BID [facility] Last Admin: 03/23/18 08:52 Dose: 325 mg Folic Acid (Folic Acid) 1 mg PO DAILY [facility] Last Admin: 03/23/18 08:52 Dose: 1 mg Hydrochlorothiazide (Microzide) 12.5 mg PO DAILY [facility] Last Admin: 03/23/18 08:53 Dose: 12.5 mg Lactated Ringer's (Lactated Ringer's) 1,000 mls @ 75 mls/hr IV .[id number] [facility] Last Admin: 03/23/18 07:30 Dose: Not Given Lactated Ringer's (Lactated Ringer's) 1,000 mls @ 75 mls/hr IV .[id number] [facility] Last Admin: 03/23/18 07:30 Dose: Not Given Daptomycin 500 mg/ Sodium (Chloride) 100 mls @ 100 mls/hr IV Q48H [facility] PRN Reason: Protocol Stop: 03/26/18 19:46 Last Admin: 03/21/18 21:24 Dose: 100 mls/hr Losartan Potassium (Cozaar) 100 mg PO DAILY [facility] Last Admin: 03/23/18 08:52 Dose: 100 mg Morphine Sulfate (Morphine) 4 mg IVP Q4 PRN PRN Reason: Pain, severe (8-10) Multivitamins/Minerals (Therapeutic-M Tab) 1 tab PO DAILY [facility] Last Admin: 03/23/18 08:52 Dose: 1 tab Oxycodone HCl (Oxycodone Immediate Release Tab) 10 mg PO Q6 PRN PRN Reason: Pain, moderate (4-7) Last Admin: 03/22/18 13:43 Dose: 10 mg Senna/Docusate Sodium (Senokot S 50 Mg-8.6 Mg) 2 tab PO HS [facility] Last Admin: 03/22/18 21:50 Dose: 2 tab - Labs Labs: 03/23/18 05:40 03/23/18 05:40 - Extremities Exam Additional comments: Right knee: incision intact, betadine dressing changed. +serous drainage noted. noted erythema to distal lower leg. knee immobilizer reapplied. +rom ankle/toes sensation intact +DP/PT pulsescalves soft NT neg homans Assessment and Plan (1) Status post total right knee replacement Assessment & Plan: POD#2 s/p I&D and implantation of antibiotic beads plan for transfer to TCU for continued PT and continued IV antibiotics per ID knee immob at all times PT/OT VTE proph d/w Dr. Plummer, agrees with above Status: Acute
[2018-03-23] MEDS ORDERED: Lidocaine 1% 5ml Abboject IV ONE (11:48)
--- NOTE | 2018-03-23 13:25 | PCM.SURG1 ---
Surgeon's Initial Post Op Note - Surgeon's Notes Surgeon: Juan M Waistline Joiner: None Type of Anesthesia: Local Pre-Operative Diagnosis: Infection Operative Findings: patent right basilic vein Post-Operative Diagnosis: Infection Operation Performed: Right basilic vein 4F SL 34cm PICC plsced with the tip in the SVC Specimen/Specimens Removed: None Estimated Blood Loss: EBL {In ML}: 1 Date of Surgery/Procedure: 03/23/18 Time of Surgery/Procedure: 13:20
--- NOTE | 2018-03-23 13:44 | CP.PCM.DIS ---
Provider - Provider Date of Admission: 03/21/18 15:07 Attending physician: Aba Bangura DO Primary care physician: Len Plummer III, MD Consults: ortho consult ID consult cardiology consult Time Spent in preparation of Discharge (in minutes): 15 Hospital Course - Lab Results Lab Results: Micro Results 03/21/18 13:35 Other: Please Indicate Gram Stain - Final 03/21/18 13:35 Other: Please Indicate Body Fluid Culture - Preliminary NO GROWTH AFTER 2 DAYS 03/21/18 13:35 Body Fluid - Knee-Right Gram Stain - Final 03/21/18 13:35 Body Fluid - Knee-Right Anaerobic Culture - Final NO ANAEROBES ISOLATED. 03/21/18 13:35 Body Fluid - Knee-Right Body Fluid Culture - Preliminary NO GROWTH AFTER 2 DAYS 03/21/18 14:30 Knee - Right Gram Stain - Final 03/21/18 14:30 Knee - Right Wound Culture - Preliminary No growth. 03/21/18 14:30 Knee - Right Gram Stain - Final 03/21/18 14:30 Knee - Right Wound Culture - Preliminary No growth. 03/21/18 14:30 Knee - Right Gram Stain - Final 03/21/18 14:30 Knee - Right Wound Culture - Preliminary No growth. 03/21/18 14:30 Knee - Right Gram Stain - Final 03/21/18 14:30 Knee - Right Wound Culture - Preliminary No growth. 03/21/18 14:30 Knee - Right Gram Stain - Final 03/21/18 14:30 Knee - Right Wound Culture - Preliminary No growth. 03/21/18 14:30 Knee - Right Gram Stain - Final 03/21/18 14:30 Knee - Right Wound Culture - Preliminary No growth. 03/21/18 14:30 Knee - Right Gram Stain - Final 03/21/18 14:30 Knee - Right Wound Culture - Preliminary No growth. 03/21/18 14:30 Knee - Right Gram Stain - Final 03/21/18 14:30 Knee - Right Anaerobic Culture - Final NO ANAEROBES ISOLATED. 03/21/18 14:30 Knee - Right Wound Culture - Preliminary No growth. 03/21/18 14:30 Knee - Right Gram Stain - Final 03/21/18 14:30 Knee - Right Wound Culture - Preliminary No growth. 03/21/18 14:30 Knee - Right Gram Stain - Final 03/21/18 14:30 Knee - Right Wound Culture - Preliminary No growth. 03/21/18 14:30 Knee - Right Gram Stain - Final 03/21/18 14:30 Knee - Right Wound Culture - Preliminary No growth. 03/21/18 14:30 Knee - Right Gram Stain - Final 03/21/18 14:30 Knee - Right Wound Culture - Preliminary No growth. 03/21/18 14:30 Knee - Right Gram Stain - Final 03/21/18 14:30 Knee - Right Wound Culture - Preliminary No growth. 03/21/18 14:30 Knee - Right Gram Stain - Final 03/21/18 14:30 Knee - Right Wound Culture - Preliminary No growth. 03/21/18 14:30 Knee - Right Gram Stain - Final 03/21/18 14:30 Knee - Right Wound Culture - Preliminary No growth. 03/21/18 14:30 Knee - Right Gram Stain - Final 03/21/18 14:30 Knee - Right Wound Culture - Preliminary No growth. 03/21/18 14:30 Knee - Right Anaerobic Culture - Final NO ANAEROBES ISOLATED. 03/21/18 14:30 Other: Please Indicate Mycobacterial Culture - Preliminary 03/21/18 14:30 Other: Please Indicate Mycobacterial Culture - Preliminary Most Recent Lab Values WBC 10.7 K/uL (4.8-10.8) 03/23/18 05:40 RBC 3.10 Mil/uL (3.80-5.20) L 03/23/18 05:40 Hgb 9.3 g/dL (12.0-16.0) L 03/23/18 05:40 Hct 27.7 % (34.0-47.0) L 03/23/18 05:40 MCV 89.4 fl (81.0-99.0) 03/23/18 05:40 MCH 30.0 pg (27.0-31.0) 03/23/18 05:40 MCHC 33.6 g/dL (33.0-37.0) 03/23/18 05:40 RDW 13.8 % (11.5-14.5) 03/23/18 05:40 Plt Count 265 K/uL (130-400) 03/23/18 05:40 MPV 7.7 fl (7.2-11.7) 03/22/18 05:15 Neut % (Auto) 78.6 % (50.0-75.0) H 03/22/18 05:15 Lymph % (Auto) 11.5 % (20.0-40.0) L 03/22/18 05:15 [place] % (Auto) 7.8 % (0.0-10.0) 03/22/18 05:15 Eos % (Auto) 1.5 % (0.0-4.0) 03/22/18 05:15 Baso % (Auto) 0.6 % (0.0-2.0) 03/22/18 05:15 Neut # (Auto) 6.0 K/uL (1.8-7.0) 03/22/18 05:15 Lymph # (Auto) 0.9 K/uL (1.0-4.3) L 03/22/18 05:15 [place] # (Auto) 0.6 K/uL (0.0-0.8) 03/22/18 05:15 Eos # (Auto) 0.1 K/uL (0.0-0.7) 03/22/18 05:15 Baso # (Auto) 0.0 K/uL (0.0-0.2) 03/22/18 05:15 Sodium 139 mmol/l (132-148) 03/23/18 05:40 Potassium 4.2 MMOL/L (3.6-5.0) 03/23/18 05:40 Chloride 106 mmol/L (98-107) 03/23/18 05:40 Carbon Dioxide 24 mmol/L (22-30) 03/23/18 05:40 Anion Gap 13 (10-20) 03/23/18 05:40 BUN 20 mg/dl (7-17) H 03/23/18 05:40 Creatinine 1.3 mg/dl (0.7-1.2) H 03/23/18 05:40 Est GFR ( Amer) 49 03/23/18 05:40 Est GFR (Non-Af Amer) 41 03/23/18 05:40 Random Glucose 132 mg/dL (65-105) H 03/23/18 05:40 Calcium 8.8 mg/dL (8.4-10.2) 03/23/18 05:40 Total Bilirubin 0.5 mg/dl (0.2-1.3) 03/22/18 05:15 AST 17 U/L (14-36) 03/22/18 05:15 ALT 14 U/L (9-52) 03/22/18 05:15 Alkaline Phosphatase 50 U/L (38-126) 03/22/18 05:15 Total Creatine Kinase 34 U/L (30-135) 03/22/18 05:15 Total Protein 6.5 G/DL (6.3-8.2) 03/22/18 05:15 Albumin 3.0 g/dL (3.5-5.0) L D 03/22/18 05:15 Globulin 3.5 gm/dL (2.2-3.9) 03/22/18 05:15 Albumin/Globulin Ratio 0.9 (1.0-2.1) L 03/22/18 05:15 Fluid Type Synovial fluid 03/21/18 15:16 Synovial WBC 314.0 /mm3 (0.0-150.0) H 03/21/18 15:16 Synovial RBC 691632.0 /mm3 (0.0-0.0) H 03/21/18 15:16 Synovial Neutrophils 81.0 % (0-0) H 03/21/18 15:16 Synovial Lymphocytes 12.0 % (0-0) H 03/21/18 15:16 Synov Monos/Macrophage 7 % (0-0) H 03/21/18 15:16 Synovial Fluid Comment Bloody 03/21/18 15:16 Blood Type O POSITIVE 03/21/18 08:26 Antibody Screen Negative 03/21/18 08:26 Crossmatch See Detail 03/21/18 08:26 BBK History Checked Patient has bt 03/21/18 08:26 - Hospital Course Hospital Course: 67 year old female with a past medical history of HTN, HLD, and OA, s/p right TKR on 01/22/18 after failing conservative management presented with some drainage the knee wound site along with redness and swelling of the knee. She has been given PO Levaquin without improvement. She was taken to OR and underwent I&D and antibiotic bead implant placement. ID was consulted and patient started on daptomycin IV. Post op patient developed mild CLYDE . PT was consulted and recommended TCU for IV antibiotic treatment and PT Will discharge patient to TCU today and will follow up culture results. 1.s/p Right TKR revision underwent I& D of right knee and antibiotic bead placement with Dr. Plummer Fluid from right knee shows no signs of sepsis or infection ( WBC 151) ID consult Cultures so far with no growth Continue daptomycin as per ID. PICC line placed Will d/c to TCu for PT and IV antibiotics Incentive spirometry Lovenox for DVT prophylaxis pain management 2. HTN BP stable continue Amlodipine, Coreg, Losartan and HCTZ Dr. Mckeon on consultation for cardiology, appreciated. 3. HLD continue Lipitor 4. CLYDE Cr trended up to 1.3 Most likely prerenal Start IVF NS @ 100 cc/hr repeat BMP in AM 5.Mild anemia Unclear etiology Hgb 9.3 Continue Ferroussulfate PO 6. DVT prophylaxis SCDs Lovenox Discharge Exam - Head Exam Head Exam: ATRAUMATIC, NORMOCEPHALIC - Eye Exam Eye Exam: EOMI, Normal appearance, PERRL Pupil Exam: NORMAL ACCOMODATION - ENT Exam ENT Exam: Mucous Membranes Moist, Normal Exam - Neck Exam Neck exam: Full Rom, Normal Inspection - Respiratory Exam Respiratory Exam: Clear to PA & Lateral, NORMAL BREATHING PATTERN. absent: Rhonchi, Wheezes - Cardiovascular Exam Cardiovascular Exam: REGULAR RHYTHM, RRR, +S1, +S2. absent: JVD - GI/Abdominal Exam GI & Abdominal Exam: Normal Bowel Sounds, Soft. absent: Distended, Guarding, Rebound, Tenderness - Rectal Exam Rectal Exam: Deferred - Extremities Exam Extremities exam: normal inspection, pedal pulses present Additional comments: right knee dressing and knee immobilizer - Back Exam Back exam: NORMAL INSPECTION - Neurological Exam Neurological exam: Alert, CN II-XII Intact, Oriented x3 - Psychiatric Exam Psychiatric exam: Normal Affect, Normal Mood - Skin Skin Exam: Dry, Pallor, Warm Discharge Plan - Follow Up Plan Condition: GOOD Disposition: TRANSF TO SNF Patient education suggested?: Yes Referrals: Len Plummer III, MD [Primary Care Provider] -
[2018-03-23] MEDS ORDERED: Sodium Chloride 0.9% 1,000 ML IV SCH (13:45)
[2018-03-23] MEDS: Sodium Chloride 0.9% 1,000 ML IV SCH (15:47)
--- NOTE | 2018-03-23 16:27 | CP.PCM.PN ---
Subjective - Date & Time of Evaluation Date of Evaluation: 03/23/18 Time of Evaluation: 10:00 - Subjective Subjective: Patient seen bedside. Complains of pain to right knee. Hemodynamically stable, afebrile No acute issues overnight Objective - Vital Signs/Intake and Output Vital Signs (last 24 hours): Temp Pulse Resp BP Pulse Ox 99.4 F 71 18 128/74 98 03/23/18 12:34 03/23/18 12:34 03/23/18 12:34 03/23/18 12:34 03/23/18 11:41 - Medications Medications: Current Medications Acetaminophen (Tylenol 325mg Tab) 975 mg PO Q6 [facility] Last Admin: 03/23/18 16:09 Dose: 975 mg Allopurinol (Zyloprim) 100 mg PO DAILY [facility] Last Admin: 03/23/18 08:53 Dose: 100 mg Amlodipine Besylate (Norvasc) 5 mg PO DAILY [facility] Last Admin: 03/23/18 08:53 Dose: 5 mg Atorvastatin Calcium (Lipitor) 20 mg PO DAILY@2200 [facility] Last Admin: 03/22/18 21:50 Dose: 20 mg Carvedilol (Coreg) 6.25 mg PO BID [facility] Last Admin: 03/23/18 16:10 Dose: 6.25 mg Enoxaparin Sodium (Lovenox) 40 mg SC DAILY [facility] PRN Reason: Protocol Last Admin: 03/23/18 08:52 Dose: 40 mg Ferrous Sulfate (Feosol) 325 mg PO BID [facility] Last Admin: 03/23/18 16:10 Dose: 325 mg Folic Acid (Folic Acid) 1 mg PO DAILY [facility] Last Admin: 03/23/18 08:52 Dose: 1 mg Hydrochlorothiazide (Microzide) 12.5 mg PO DAILY [facility] Last Admin: 03/23/18 08:53 Dose: 12.5 mg Lactated Ringer's (Lactated Ringer's) 1,000 mls @ 75 mls/hr IV .[id number] [facility] Last Admin: 03/23/18 07:30 Dose: Not Given Lactated Ringer's (Lactated Ringer's) 1,000 mls @ 75 mls/hr IV .[id number] [facility] Last Admin: 03/23/18 07:30 Dose: Not Given Daptomycin 500 mg/ Sodium (Chloride) 100 mls @ 100 mls/hr IV Q48H [facility] PRN Reason: Protocol Stop: 03/26/18 19:46 Last Admin: 03/21/18 21:24 Dose: 100 mls/hr Sodium Chloride (Sodium Chloride 0.9%) 1,000 mls @ 100 mls/hr IV .Q10H [facility] Stop: 03/24/18 13:40 Last Admin: 03/23/18 15:47 Dose: 100 mls/hr Losartan Potassium (Cozaar) 100 mg PO DAILY [facility] Last Admin: 03/23/18 08:52 Dose: 100 mg Morphine Sulfate (Morphine) 4 mg IVP Q4 PRN PRN Reason: Pain, severe (8-10) Multivitamins/Minerals (Therapeutic-M Tab) 1 tab PO DAILY [facility] Last Admin: 03/23/18 08:52 Dose: 1 tab Oxycodone HCl (Oxycodone Immediate Release Tab) 10 mg PO Q6 PRN PRN Reason: Pain, moderate (4-7) Last Admin: 03/22/18 13:43 Dose: 10 mg Senna/Docusate Sodium (Senokot S 50 Mg-8.6 Mg) 2 tab PO HS [facility] Last Admin: 03/22/18 21:50 Dose: 2 tab - Labs Labs: 03/23/18 05:40 03/23/18 05:40 - Constitutional Appears: Non-toxic, No Acute Distress - Head Exam Head Exam: ATRAUMATIC, NORMAL INSPECTION, NORMOCEPHALIC - Eye Exam Eye Exam: EOMI, PERRL Pupil Exam: NORMAL ACCOMODATION - ENT Exam ENT Exam: Mucous Membranes Moist, Normal Exam - Neck Exam Neck Exam: Full ROM, Normal Inspection - Respiratory Exam Respiratory Exam: Clear to Ausculation Bilateral, NORMAL BREATHING PATTERN. absent: Wheezes, Respiratory Distress - Cardiovascular Exam Cardiovascular Exam: REGULAR RHYTHM, RRR, +S1, +S2. absent: JVD - GI/Abdominal Exam GI & Abdominal Exam: Soft, Normal Bowel Sounds. absent: Distended, Guarding, Tenderness, Rebound - Rectal Exam Rectal Exam: Deferred - Extremities Exam Extremities Exam: Normal Capillary Refill Additional comments: right knee dressing and immobilizer in place - Back Exam Back Exam: NORMAL INSPECTION - Neurological Exam Neurological Exam: Alert, Awake, CN II-XII Intact, Oriented x3 - Psychiatric Exam Psychiatric exam: Normal Affect, Normal Mood - Skin Skin Exam: Dry, Pallor, Warm Assessment and Plan - Assessment and Plan (Free Text) Assessment: 67 year old female with a past medical history of HTN, HLD, and OA, s/p right TKR on 01/22/18 after failing conservative management presented with some drainage the knee wound site along with redness and swelling of the knee. She has been given PO Levaquin without improvement. She was taken to OR and underwent I&D and antibiotic bead implant placement. ID was consulted and patient started on daptomycin IV. Post op patient developed mild CLYDE . PT was consulted and recommended TCU for IV antibiotic treatment and PT Will discharge patient to TCU tomorrow and will follow up culture results. 1.s/p Right TKR revision underwent I& D of right knee and antibiotic bead placement with Dr. Plummer Fluid from right knee shows no signs of sepsis or infection ( WBC 151) ID consulted Cultures so far with no growth Continue daptomycin as per ID. PICC line placed Will d/c to TCu for PT and IV antibiotics in AM Incentive spirometry Lovenox for DVT prophylaxis pain management 2. HTN BP stable continue Amlodipine, Coreg, Losartan and HCTZ Dr. Mckeon on consultation for cardiology, appreciated. 3. HLD continue Lipitor 4. CLYDE Cr trended up to 1.3 Most likely prerenal Start IVF NS @ 100 cc/hr repeat BMP in AM 5.Mild anemia Unclear etiology Hgb 9.3 Continue Ferrous sulfate PO 6. DVT prophylaxis SCDs Lovenox
--- NOTE | 2018-03-23 17:04 | RAD ---
Date of service: 03/21/2018 PROCEDURE: Intraoperative fluoroscopy HISTORY: RIGHT KNEE COMPARISON: Not available TECHNIQUE: Intraoperative fluoroscopy was provided in conjunction with a right knee arthroplasty. The total time of fluoroscopy was 2.7 seconds. FINDINGS: Three fluoroscopic spot films are submitted. IMPRESSION: Fluoroscopy provided
[2018-03-23] MEDS: DAPTOmycin 500 MG in Sodium Chloride 0.9% 100 ML IV SCH ×2 (18:12→18:56)
[2018-03-23] MEDS: Docusate-Senna 50 mg-8.6 mg Tab PO SCH (21:20)
[2018-03-24] MEDS: Sodium Chloride 0.9% 1,000 ML IV SCH ×2 (01:30→04:24)
[2018-03-24 07:24] LABS: HEMOGLOBIN 8.5 g/dL (12.0-16.0); MEAN CELL VOLUME 89.6 fl (81.0-99.0); MEAN CORPUSCULAR HEMOGLOBIN 29.8 pg (27.0-31.0); MEAN CORPUSCULAR HGB CONC 33.2 g/dL (33.0-37.0); RBC 2.87 Mil/uL (3.80-5.20); RED CELL DISTRIBUTION WIDTH 14.1 % (11.5-14.5); WHITE BLOOD COUNT 7.6 K/uL (4.8-10.8)
[2018-03-24 07:31] LABS: CALCIUM 8.6 mg/dL (8.4-10.2)
[2018-03-24 08:25] VITALS: PULSE 74; TEMP 98
[2018-03-24] MEDS: Enoxaparin 40 mg Syringe SC SCH (10:10)
[2018-03-24] MEDS: Multivitamin With Minerals Tab PO SCH (10:11)
--- NOTE | 2018-03-24 13:49 | CP.PCM.PN ---
Subjective - Date & Time of Evaluation Date of Evaluation: 03/24/18 Time of Evaluation: 13:30 - Subjective Subjective: S- pt much more comfrtable/pic line inserted Objective - Vital Signs/Intake and Output Vital Signs (last 24 hours): Temp Pulse Resp BP Pulse Ox 98 F 74 20 111/63 94 L 03/24/18 09:00 03/24/18 10:10 03/24/18 09:00 03/24/18 10:10 03/24/18 09:00 - Medications Medications: Current Medications Acetaminophen (Tylenol 325mg Tab) 975 mg PO Q6 [facility] Last Admin: 03/24/18 10:11 Dose: 975 mg Allopurinol (Zyloprim) 100 mg PO DAILY [facility] Last Admin: 03/24/18 10:11 Dose: 100 mg Amlodipine Besylate (Norvasc) 5 mg PO DAILY [facility] Last Admin: 03/24/18 10:10 Dose: 5 mg Atorvastatin Calcium (Lipitor) 20 mg PO DAILY@2200 [facility] Last Admin: 03/23/18 21:20 Dose: 20 mg Carvedilol (Coreg) 6.25 mg PO BID [facility] Last Admin: 03/24/18 10:08 Dose: 6.25 mg Enoxaparin Sodium (Lovenox) 40 mg SC DAILY [facility] PRN Reason: Protocol Last Admin: 03/24/18 10:10 Dose: 40 mg Ferrous Sulfate (Feosol) 325 mg PO BID [facility] Last Admin: 03/24/18 10:09 Dose: 325 mg Folic Acid (Folic Acid) 1 mg PO DAILY [facility] Last Admin: 03/24/18 10:09 Dose: 1 mg Hydrochlorothiazide (Microzide) 12.5 mg PO DAILY [facility] Last Admin: 03/24/18 10:10 Dose: 12.5 mg Daptomycin 500 mg/ Sodium (Chloride) 100 mls @ 100 mls/hr IV Q48H [facility] PRN Reason: Protocol Stop: 03/26/18 19:46 Last Admin: 03/23/18 18:56 Dose: Not Given Losartan Potassium (Cozaar) 100 mg PO DAILY [facility] Last Admin: 03/24/18 10:08 Dose: 100 mg Morphine Sulfate (Morphine) 4 mg IVP Q4 PRN PRN Reason: Pain, severe (8-10) Multivitamins/Minerals (Therapeutic-M Tab) 1 tab PO DAILY [facility] Last Admin: 03/24/18 10:11 Dose: 1 tab Oxycodone HCl (Oxycodone Immediate Release Tab) 10 mg PO Q6 PRN PRN Reason: Pain, moderate (4-7) Last Admin: 03/22/18 13:43 Dose: 10 mg Senna/Docusate Sodium (Senokot S 50 Mg-8.6 Mg) 2 tab PO HS [facility] Last Admin: 03/23/18 21:20 Dose: 2 tab - Labs Labs: 03/24/18 05:30 03/24/18 05:30 - Additional Findings Additional findings: Obj no evidence for systemic sepsis [place] pt with some serous drainge yesterday - as expeceted because of use of the abio imprganted pellets- tehese continue to drauin and elute abios dressing intact for betadine wet to dry dressing change in AM Assessment and Plan - Assessment and Plan (Free Text) Assessment: A- s/p incison/drainag L knee P- orthopedicaly stable for betadine wet to drydressing changes to continue case discussed with Dr dillard[facility]
[2018-03-24 15:52] VITALS: BP 132/56; RESP 18; O2SAT 96
--- NOTE | 2018-03-25 17:32 | PQF ---
PROVIDER RESPONSE TEXT: Prerenal azotemia due to dehydration, now resolved today with IV fluids 03/25/18 REVIEWER QUERY TEXT: Documentation Clarification Your help is requested in clarifying the following clinical documentation: CLYDE: Acute Kidney Injury v ersus Acute Kidney Ischemia? Creatinine: 1.0->1.3 D/C Summary includes:Post op patient developed mild CLYDE . -- CLYDE Cr trended up to 1.3 Most likely prerenal Start IVF NS @ 100 cc/hr repeat BMP in AM The patient's Clinical Indicators include: xx Query created by: Luanne Vyas on 03/23/2018 3:00 PM Electronically signed by: Sky Bangura MD 03/25/2018 5:29 PM
--- NOTE | 2018-03-27 19:45 | VASCULAR ---
Procedure: Ultrasound and fluoroscopically placed Right upper extremity PICC. Clinical indication: Long-term IV antibiotics. Technique: The relative risks and indications of the procedure were explained to the patient and written informed consent obtained. The patient was placed supine on the angiographic table and the right arm prepped and draped in the usual sterile fashion. A tourniquet was applied to the right axilla. 1% lidocaine was used to anesthetize the skin and soft tissues at the puncture site above the elbow. The right basilic vein was punctured under direct ultrasound guidance with a micropuncture set. A 0.018 guidewire was advanced centrally and used to measure the length to the SVC/RA junction. A 4 [place] single -lumen PICC size 34 cm long was advanced to the SVC/RA junction. The catheter was flushed and secured. The patient tolerated the procedure well. Impression: Ultrasound and fluoroscopically placed right upper extremity PICC. A 4 [place] double-lumen PICC line size 34 cm long was advanced to the SVC/RA junction
== END 2018-03-24 16:16 | DRG 909 ==
LOC: H.OPSURG 06:39 → H.MEDSURG1 15:07 → H.OPSURG 18:00 → H.MEDSURG1 03-22 17:23
PROVIDERS: ADMIT Internal Medicine; ATTEND Internal Medicine
PROC: 3E0U029 Introduction of Other Anti-infective into Joints, Open Approach (ICD-10-PCS; 2018-03-21)
PROC: 0Y9F0ZZ Drainage of Right Knee Region, Open Approach (ICD-10-PCS; 2018-03-21)
PROC: 0KBS0ZZ Excision of Right Lower Leg Muscle, Open Approach (ICD-10-PCS; principal; 2018-03-23)
PROC: 02HV33Z Insertion of Infusion Device into Superior Vena Cava, Percutaneous Approach (ICD-10-PCS; 2018-03-23)
DX: T81.89XA Other complications of procedures, not elsewhere classified, initial encounter (principal); Y83.8 Other surgical procedures as the cause of abnormal reaction of the patient, or of later complication, without mention of misadventure at the time of the procedure; I10 Essential (primary) hypertension; E78.5 Hyperlipidemia, unspecified; E78.00 Pure hypercholesterolemia, unspecified; I73.9 Peripheral vascular disease, unspecified; I87.2 Venous insufficiency (chronic) (peripheral); M13.89 Other specified arthritis, multiple sites; R79.89 Other specified abnormal findings of blood chemistry; E86.0 Dehydration; D64.9 Anemia, unspecified; Z96.651 Presence of right artificial knee joint

== ENCOUNTER 2018-03-24 10:32 | Inpatient (IN) | payer OTHER ==
[2018-03-24 16:51] VITALS: BMI 37.3
[2018-03-24] MEDS ORDERED: oxyCODONE 10 mg Immediate Release Tab PO PRN (17:12)
[2018-03-24] MEDS ORDERED: DAPTOmycin 500 mg Inj (Cubicin) IV SCH (17:15)
[2018-03-24] MEDS ORDERED: Tuberculin 5 Units/0.1 ml Inj ID ONE (17:21)
[2018-03-24] MEDS: DAPTOmycin 500 MG in Sodium Chloride 0.9% 100 ML IV SCH ×2 (21:00→21:30)
[2018-03-24] MEDS: Docusate-Senna 50 mg-8.6 mg Tab PO SCH (21:31)
[2018-03-25] MEDS: Multivitamin With Minerals Tab PO SCH (09:43)
[2018-03-25] MEDS: Enoxaparin 40 mg Syringe SC SCH (09:43)
[2018-03-25] MEDS: Cholecalciferol 1,000 INTLU TAB PO SCH (09:45)
--- NOTE | 2018-03-25 12:08 | CP.PCM.PN ---
Subjective - Date & Time of Evaluation Date of Evaluation: 03/25/18 Time of Evaluation: 12:00 - Subjective Subjective: S- pt chroincally complaining;situation discussed with daughter- pt with minimal post op discomfort no subjective evidenc for ongoing sepsis Objective - Vital Signs/Intake and Output Vital Signs (last 24 hours): Temp Pulse Resp BP Pulse Ox 97.7 F 71 20 131/67 97 03/25/18 08:40 03/25/18 09:45 03/25/18 08:40 03/25/18 09:45 03/25/18 08:40 - Medications Medications: Current Medications Acetaminophen (Tylenol 325mg Tab) 975 mg PO Q6 [facility] Last Admin: 03/25/18 04:57 Dose: 975 mg Allopurinol (Zyloprim) 100 mg PO DAILY [facility] Last Admin: 03/25/18 09:45 Dose: 100 mg Amlodipine Besylate (Norvasc) 5 mg PO DAILY [facility] Last Admin: 03/25/18 09:45 Dose: 5 mg Atorvastatin Calcium (Lipitor) 20 mg PO DAILY@2200 [facility] Last Admin: 03/24/18 21:30 Dose: 20 mg Carvedilol (Coreg) 6.25 mg PO BID [facility] Last Admin: 03/25/18 09:44 Dose: 6.25 mg Cholecalciferol (Vitamin D) 2,000 intlu PO DAILY [facility] Last Admin: 03/25/18 09:45 Dose: 2,000 intlu Enoxaparin Sodium (Lovenox) 40 mg SC DAILY [facility] PRN Reason: Protocol Last Admin: 03/25/18 09:43 Dose: 40 mg Ferrous Sulfate (Feosol) 325 mg PO BID [facility] Last Admin: 03/25/18 09:44 Dose: 325 mg Folic Acid (Folic Acid) 1 mg PO DAILY [facility] Last Admin: 03/25/18 09:44 Dose: 1 mg Hydrochlorothiazide (Microzide) 12.5 mg PO DAILY [facility] Last Admin: 03/25/18 09:45 Dose: 12.5 mg Daptomycin 500 mg/ Sodium (Chloride) 100 mls @ 100 mls/hr IV Q48H [facility] PRN Reason: Protocol Stop: 03/30/18 21:01 Losartan Potassium (Cozaar) 100 mg PO DAILY [facility] Last Admin: 03/25/18 09:44 Dose: 100 mg Multivitamins/Minerals (Therapeutic-M Tab) 1 tab PO DAILY [facility] Last Admin: 03/25/18 09:43 Dose: 1 tab Oxycodone HCl (Oxycodone Immediate Release Tab) 10 mg PO Q6 PRN PRN Reason: Pain, moderate (4-7) Senna/Docusate Sodium (Senokot S 50 Mg-8.6 Mg) 2 tab PO HS [facility] Last Admin: 03/24/18 21:31 Dose: Not Given Tramadol HCl (Ultram) 50 mg PO Q6 PRN PRN Reason: Pain, moderate (4-7) - Skin Additional comments: Objective systemic wnl constitutional pt mildly depressed Musculoskeltal stance/gait defrred minimal post op discomfort orthopedically stable dressing chend' wound Markedly improved no active purulent drainage! Assessment and Plan - Assessment and Plan (Free Text) Assessment: A- s/p I and D septic TKR P- betadine wet to dry dressing changes every other day no chnage in weight bearing statuis pt will require 6 wks iv abios- jesús in light of the fact that pt had preexisting stasis dermatitis and poor vascuylar supply to lower extremity(r)
--- NOTE | 2018-03-25 18:06 | CP.PCM.HP ---
History of Present Illness - History of Present Illness History of Present Illness: cc: s/p right TKR revision 67 year old female with a past medical history of HTN, HLD, and OA, s/p right TKR on 01/22/18 after failing conservative management presented with some drainage the knee wound site along with redness and swelling of the knee. She has been given PO Levaquin without improvement. She was taken to OR and underwent I&D and antibiotic bead implant placement. ID was consulted and patient started on daptomycin IV. Post op patient developed mild CLYDE . PT was consulted and recommended TCU for IV antibiotic treatment and PT . Patient is now admitted to TCU. Present on Admission - Present on Admission Any Indicators Present on Admission: No Review of Systems - Review of Systems Review of Systems: A 12 point review of systems was conducted and found to be negative other than what was mentioned in the HPI. Past Patient History - Infectious Disease Hx of Infectious Diseases: None - Tetanus Immunizations Tetanus Immunization: Unknown - Past Medical History & Family History Past Medical History?: Yes - Past Social History Smoking Status: Never Smoked - CARDIAC Hx Cardiac Disorders: Yes Hx Hypertension: Yes - PULMONARY Hx Respiratory Disorders: No - NEUROLOGICAL Hx Neurological Disorder: No - HEENT Hx HEENT Problems: No - RENAL Hx Chronic Kidney Disease: No - ENDOCRINE/METABOLIC Hx Endocrine Disorders: No - HEMATOLOGICAL/ONCOLOGICAL Hx AIDS: No Hx Human Immunodeficiency Virus (HIV): No - INTEGUMENTARY Hx Dermatological Problems: No - MUSCULOSKELETAL/RHEUMATOLOGICAL Hx Falls: No - GASTROINTESTINAL Hx Gastrointestinal Disorders: No - GENITOURINARY/GYNECOLOGICAL Hx Genitourinary Disorders: No - PSYCHIATRIC Hx Substance Use: No - SURGICAL HISTORY Hx Surgeries: Yes Hx Appendectomy: Yes - ANESTHESIA Hx Anesthesia: Yes Hx Anesthesia Reactions: No Meds Allergies/Adverse Reactions: Allergies Allergy/AdvReac Type Severity Reaction Status Date / Time No Known Allergies Allergy Verified 03/24/18 16:59 Physical Exam - Additional Findings Additional findings: Physical exam: Constitutional- cooperative, awake, alert Head- NCAT, PERRL Eye- PERRL, EOMI ENT- normal exam, MMM. Neck- normal inspection, supple, no JVD Respiratory- CTAB, no wheezes rales rhonchi Cardiovascular- RRR, +S1, +S2 no MRG GI/Abdominal- normal bowel sounds, soft, no mass, no hsm Skin- warm, dry Extremities Exam- + Right knee dressing c/d/i. normal capillary refill, normal inspection Neurological Exam- alert, awake, oriented Psych- normal mood, normal affect Results - Vital Signs Recent Vital Signs: Last Vital Signs Temp 97.9 F 03/25/18 15:39 Pulse 61 03/25/18 16:07 Resp 20 03/25/18 15:39 BP 114/56 L 03/25/18 16:07 Pulse Ox 97 03/25/18 15:39 Assessment & Plan - Assessment and Plan (Free Text) Plan: 67 year old female with a past medical history of HTN, HLD, and OA, s/p right TKR on 01/22/18 after failing conservative management presented with some drainage the knee wound site along with redness and swelling of the knee. She has been given PO Levaquin without improvement. She was taken to OR and underwent I&D and antibiotic bead implant placement. ID was consulted and patient started on daptomycin IV. Post op patient developed mild CLYDE . PT was consulted and recommended TCU for IV antibiotic treatment and PT . Patient is now admitted to TCU. 1.s/p Right TKR revision underwent I& D of right knee and antibiotic bead placement with Dr. Plummer Fluid from right knee shows no signs of sepsis or infection ( WBC 151) ID consult Cultures so far with no growth Continue daptomycin as per ID. PICC line placed Will d/c to TCu for PT and IV antibiotics Incentive spirometry Lovenox for DVT prophylaxis pain management 2. HTN BP stable continue Amlodipine, Coreg, Losartan and HCTZ Dr. Mckeon on consultation for cardiology, appreciated. 3. HLD continue Lipitor 4. CLYDE Cr trended up to 1.3 Most likely prerenal Start IVF NS @ 100 cc/hr repeat BMP in AM 5.Mild anemia Unclear etiology Hgb 9.3 Continue Ferroussulfate PO 6. DVT prophylaxis SCDs Lovenox
[2018-03-25] MEDS: DAPTOmycin 500 MG in Sodium Chloride 0.9% 100 ML IV SCH (20:47)
[2018-03-25] MEDS: Docusate-Senna 50 mg-8.6 mg Tab PO SCH (21:03)
[2018-03-26 06:24] LABS: MEAN CELL VOLUME 88.9 fl (81.0-99.0); MEAN CORPUSCULAR HGB CONC 33.8 g/dL (33.0-37.0); RED CELL DISTRIBUTION WIDTH 13.9 % (11.5-14.5); WHITE BLOOD COUNT 4.9 K/uL (4.8-10.8)
--- NOTE | 2018-03-26 08:07 | CP.PCM.PN ---
Subjective - Date & Time of Evaluation Date of Evaluation: 03/26/18 Time of Evaluation: 07:45 - Subjective Subjective: Patient seen and examined at bedside comfortable. Describes the pain as a burningat mid leg, controlled with pain meds. No new complaints. Denies CP/SOB/N /V/D/fever. Objective - Vital Signs/Intake and Output Vital Signs (last 24 hours): Temp Pulse Resp BP Pulse Ox 98.1 F 72 20 121/65 97 03/25/18 19:45 03/25/18 19:45 03/25/18 19:45 03/25/18 19:45 03/25/18 19:45 - Medications Medications: Current Medications Acetaminophen (Tylenol 325mg Tab) 975 mg PO Q6 [facility] Last Admin: 03/26/18 04:31 Dose: 975 mg Allopurinol (Zyloprim) 100 mg PO DAILY [facility] Last Admin: 03/25/18 09:45 Dose: 100 mg Amlodipine Besylate (Norvasc) 5 mg PO DAILY [facility] Last Admin: 03/25/18 09:45 Dose: 5 mg Atorvastatin Calcium (Lipitor) 20 mg PO DAILY@2200 [facility] Last Admin: 03/25/18 21:03 Dose: 20 mg Carvedilol (Coreg) 6.25 mg PO BID [facility] Last Admin: 03/25/18 16:07 Dose: 6.25 mg Cholecalciferol (Vitamin D) 2,000 intlu PO DAILY [facility] Last Admin: 03/25/18 09:45 Dose: 2,000 intlu Enoxaparin Sodium (Lovenox) 40 mg SC DAILY [facility] PRN Reason: Protocol Last Admin: 03/25/18 09:43 Dose: 40 mg Ferrous Sulfate (Feosol) 325 mg PO BID [facility] Last Admin: 03/25/18 16:08 Dose: 325 mg Folic Acid (Folic Acid) 1 mg PO DAILY [facility] Last Admin: 03/25/18 09:44 Dose: 1 mg Hydrochlorothiazide (Microzide) 12.5 mg PO DAILY [facility] Last Admin: 03/25/18 09:45 Dose: 12.5 mg Daptomycin 500 mg/ Sodium (Chloride) 100 mls @ 100 mls/hr IV Q48H [facility] PRN Reason: Protocol Stop: 03/30/18 21:01 Last Admin: 03/25/18 20:47 Dose: 100 mls/hr Losartan Potassium (Cozaar) 100 mg PO DAILY [facility] Last Admin: 03/25/18 09:44 Dose: 100 mg Multivitamins/Minerals (Therapeutic-M Tab) 1 tab PO DAILY [facility] Last Admin: 03/25/18 09:43 Dose: 1 tab Oxycodone HCl (Oxycodone Immediate Release Tab) 10 mg PO Q6 PRN PRN Reason: Pain, moderate (4-7) Senna/Docusate Sodium (Senokot S 50 Mg-8.6 Mg) 2 tab PO HS [facility] Last Admin: 03/25/18 21:03 Dose: 2 tab Tramadol HCl (Ultram) 50 mg PO Q6 PRN PRN Reason: Pain, moderate (4-7) - Labs Labs: 03/26/18 05:20 03/26/18 05:20 - Extremities Exam Additional comments: R knee: knee imm intact, wet to dry betadine dressings intact, moderate serous drainage likely due to antibiotic beads insertion sensation intact SP/DP/TN motor intact EHL/FHL/TA/G pedal pulses intact comps soft NT Assessment and Plan (1) Septic arthritis of knee, right Assessment & Plan: POD#5 s/p R knee I&D, soft tissue debridement, cementophyte debridement -wet to dry dressings changed, to be changed every other day -maintain knee imm, not to be removed -pain control -abx as per ID -PT/OT FF 10% WB -above d/w Dr. Plummer in agreement Status: Acute
[2018-03-26] MEDS: Enoxaparin 40 mg Syringe SC SCH (08:25)
[2018-03-26] MEDS: Multivitamin With Minerals Tab PO SCH (08:26)
[2018-03-26] MEDS: Cholecalciferol 1,000 INTLU TAB PO SCH (08:26)
--- NOTE | 2018-03-26 14:18 | CP.PCM.CON ---
History of Present Illness - History of Present Illness History of Present Illness: 89 year old female with right total knee replacement stauts post failed conservative treatment, with PMH of HTN, HLD, OA Review of Systems - Musculoskeletal Musculoskeletal: Muscle Weakness Past Patient History - Infectious Disease Hx of Infectious Diseases: None - Tetanus Immunizations Tetanus Immunization: Unknown - Past Medical History & Family History Past Medical History?: Yes - Past Social History Smoking Status: Never Smoked - CARDIAC Hx Cardiac Disorders: Yes Hx Hypertension: Yes - PULMONARY Hx Respiratory Disorders: No - NEUROLOGICAL Hx Neurological Disorder: No - HEENT Hx HEENT Problems: No - RENAL Hx Chronic Kidney Disease: No - ENDOCRINE/METABOLIC Hx Endocrine Disorders: No - HEMATOLOGICAL/ONCOLOGICAL Hx AIDS: No Hx Human Immunodeficiency Virus (HIV): No - INTEGUMENTARY Hx Dermatological Problems: No - MUSCULOSKELETAL/RHEUMATOLOGICAL Hx Falls: No - GASTROINTESTINAL Hx Gastrointestinal Disorders: No - GENITOURINARY/GYNECOLOGICAL Hx Genitourinary Disorders: No - PSYCHIATRIC Hx Substance Use: No - SURGICAL HISTORY Hx Surgeries: Yes Hx Appendectomy: Yes - ANESTHESIA Hx Anesthesia: Yes Hx Anesthesia Reactions: No Meds Allergies/Adverse Reactions: Allergies Allergy/AdvReac Type Severity Reaction Status Date / Time No Known Allergies Allergy Verified 03/24/18 16:59 - Medications Medications: Current Medications Acetaminophen (Tylenol 325mg Tab) 975 mg PO Q6 [facility] Last Admin: 03/26/18 10:38 Dose: 975 mg Allopurinol (Zyloprim) 100 mg PO DAILY [facility] Last Admin: 03/26/18 08:25 Dose: 100 mg Amlodipine Besylate (Norvasc) 5 mg PO DAILY [facility] Last Admin: 03/26/18 08:25 Dose: 5 mg Atorvastatin Calcium (Lipitor) 20 mg PO DAILY@2200 [facility] Last Admin: 03/25/18 21:03 Dose: 20 mg Carvedilol (Coreg) 6.25 mg PO BID [facility] Last Admin: 03/26/18 08:24 Dose: 6.25 mg Cholecalciferol (Vitamin D) 2,000 intlu PO DAILY [facility] Last Admin: 03/26/18 08:26 Dose: 2,000 intlu Enoxaparin Sodium (Lovenox) 40 mg SC DAILY [facility] PRN Reason: Protocol Last Admin: 03/26/18 08:25 Dose: 40 mg Ferrous Sulfate (Feosol) 325 mg PO BID [facility] Last Admin: 03/26/18 08:27 Dose: 325 mg Folic Acid (Folic Acid) 1 mg PO DAILY [facility] Last Admin: 03/26/18 08:24 Dose: 1 mg Hydrochlorothiazide (Microzide) 12.5 mg PO DAILY [facility] Last Admin: 03/26/18 08:25 Dose: 12.5 mg Daptomycin 500 mg/ Sodium (Chloride) 100 mls @ 100 mls/hr IV Q48H [facility] PRN Reason: Protocol Stop: 03/30/18 21:01 Last Admin: 03/25/18 20:47 Dose: 100 mls/hr Losartan Potassium (Cozaar) 100 mg PO DAILY [facility] Last Admin: 03/26/18 08:27 Dose: 100 mg Multivitamins/Minerals (Therapeutic-M Tab) 1 tab PO DAILY [facility] Last Admin: 03/26/18 08:26 Dose: 1 tab Oxycodone HCl (Oxycodone Immediate Release Tab) 10 mg PO Q6 PRN PRN Reason: Pain, moderate (4-7) Senna/Docusate Sodium (Senokot S 50 Mg-8.6 Mg) 2 tab PO HS [facility] Last Admin: 03/25/18 21:03 Dose: 2 tab Tramadol HCl (Ultram) 50 mg PO Q6 PRN PRN Reason: Pain, moderate (4-7) Physical Exam - Head Exam Head Exam: ATRAUMATIC, NORMAL INSPECTION, NORMOCEPHALIC - Eye Exam Eye Exam: EOMI, Normal appearance, PERRL Pupil Exam: NORMAL ACCOMODATION - ENT Exam ENT Exam: Mucous Membranes Moist, Normal Exam - Neck Exam Neck exam: Positive for: Normal Inspection - Respiratory Exam Respiratory Exam: NORMAL BREATHING PATTERN - Cardiovascular Exam Cardiovascular Exam: REGULAR RHYTHM - GI/Abdominal Exam GI & Abdominal Exam: Normal Bowel Sounds - Rectal Exam Rectal Exam: NORMAL INSPECTION - Exam External exam: NORMAL EXTERNAL EXAM - Back Exam Back exam: NORMAL INSPECTION - Neurological Exam Neurological exam: Alert, CN II-XII Intact - Psychiatric Exam Psychiatric exam: Normal Affect, Normal Mood Additional comments: right leg healing at present - Skin Skin Exam: Dry, Intact, Normal Color Results - Vital Signs Recent Vital Signs: Last Vital Signs Temp 97.5 F L 03/26/18 09:00 Pulse 83 03/26/18 09:00 Resp 18 03/26/18 09:00 BP 152/80 H 03/26/18 09:00 Pulse Ox 98 03/26/18 09:00 - Labs Result Diagrams: 03/26/18 05:20 03/26/18 05:20 Labs: Laboratory Results - last 24 hr 03/26/18 03/26/18 05:20 05:20 WBC 4.9 RBC 3.00 L Hgb 9.0 L Hct 26.7 L MCV 88.9 MCH 30.0 MCHC 33.8 RDW 13.9 Plt Count 340 Sodium 141 Potassium 3.9 Chloride 109 H Carbon Dioxide 26 Anion Gap 10 BUN 15 Creatinine 1.1 Est GFR ( Amer) 60 Est GFR (Non-Af Amer) 49 Random Glucose 107 H Calcium 9.0 Assessment & Plan (1) Acute blood loss anemia Status: Acute (2) Osteoarthritis of right knee Status: Acute (3) Septic arthritis of knee, right Status: Acute (4) Status post total right knee replacement Assessment and Plan: plan for mark of motion, strengthening, transfers and gait training statsu spot Pt, Ot therapy weight bearing as per Ortho Status: Acute
--- NOTE | 2018-03-26 14:24 | CP.PCM.PN ---
Subjective - Date & Time of Evaluation Date of Evaluation: 03/26/18 Time of Evaluation: 14:10 - Subjective Subjective: no acute complaints of any knee pain Objective - Vital Signs/Intake and Output Vital Signs (last 24 hours): Temp Pulse Resp BP Pulse Ox 97.5 F L 83 18 152/80 H 98 03/26/18 09:00 03/26/18 09:00 03/26/18 09:00 03/26/18 09:00 03/26/18 09:00 - Medications Medications: Current Medications Acetaminophen (Tylenol 325mg Tab) 975 mg PO Q6 [facility] Last Admin: 03/26/18 10:38 Dose: 975 mg Allopurinol (Zyloprim) 100 mg PO DAILY [facility] Last Admin: 03/26/18 08:25 Dose: 100 mg Amlodipine Besylate (Norvasc) 5 mg PO DAILY [facility] Last Admin: 03/26/18 08:25 Dose: 5 mg Atorvastatin Calcium (Lipitor) 20 mg PO DAILY@2200 [facility] Last Admin: 03/25/18 21:03 Dose: 20 mg Carvedilol (Coreg) 6.25 mg PO BID [facility] Last Admin: 03/26/18 08:24 Dose: 6.25 mg Cholecalciferol (Vitamin D) 2,000 intlu PO DAILY [facility] Last Admin: 03/26/18 08:26 Dose: 2,000 intlu Enoxaparin Sodium (Lovenox) 40 mg SC DAILY [facility] PRN Reason: Protocol Last Admin: 03/26/18 08:25 Dose: 40 mg Ferrous Sulfate (Feosol) 325 mg PO BID [facility] Last Admin: 03/26/18 08:27 Dose: 325 mg Folic Acid (Folic Acid) 1 mg PO DAILY [facility] Last Admin: 03/26/18 08:24 Dose: 1 mg Hydrochlorothiazide (Microzide) 12.5 mg PO DAILY [facility] Last Admin: 03/26/18 08:25 Dose: 12.5 mg Daptomycin 500 mg/ Sodium (Chloride) 100 mls @ 100 mls/hr IV Q48H [facility] PRN Reason: Protocol Stop: 03/30/18 21:01 Last Admin: 03/25/18 20:47 Dose: 100 mls/hr Losartan Potassium (Cozaar) 100 mg PO DAILY [facility] Last Admin: 03/26/18 08:27 Dose: 100 mg Multivitamins/Minerals (Therapeutic-M Tab) 1 tab PO DAILY [facility] Last Admin: 03/26/18 08:26 Dose: 1 tab Oxycodone HCl (Oxycodone Immediate Release Tab) 10 mg PO Q6 PRN PRN Reason: Pain, moderate (4-7) Senna/Docusate Sodium (Senokot S 50 Mg-8.6 Mg) 2 tab PO HS [facility] Last Admin: 03/25/18 21:03 Dose: 2 tab Tramadol HCl (Ultram) 50 mg PO Q6 PRN PRN Reason: Pain, moderate (4-7) - Labs Labs: 03/26/18 05:20 03/26/18 05:20 - Head Exam Head Exam: ATRAUMATIC, NORMAL INSPECTION, NORMOCEPHALIC - Eye Exam Eye Exam: EOMI, Normal appearance, PERRL Pupil Exam: NORMAL ACCOMODATION - ENT Exam ENT Exam: Mucous Membranes Moist, Normal Exam - Neck Exam Neck Exam: Normal Inspection - Respiratory Exam Respiratory Exam: Clear to Ausculation Bilateral, NORMAL BREATHING PATTERN - Cardiovascular Exam Cardiovascular Exam: REGULAR RHYTHM - GI/Abdominal Exam GI & Abdominal Exam: Soft, Normal Bowel Sounds - Rectal Exam Rectal Exam: NORMAL INSPECTION - Exam External exam: NORMAL EXTERNAL EXAM - Extremities Exam Extremities Exam: Full ROM, Normal Capillary Refill, Normal Inspection - Back Exam Back Exam: NORMAL INSPECTION - Neurological Exam Neurological Exam: Alert, Awake Neuro motor strength exam: Right Lower Extremity: 3 - Psychiatric Exam Psychiatric exam: Normal Affect, Normal Mood - Skin Skin Exam: Dry, Intact, Warm Assessment and Plan (1) Acute blood loss anemia Status: Acute (2) Osteoarthritis of right knee Status: Acute (3) Septic arthritis of knee, right Status: Acute (4) Status post total right knee replacement Assessment & Plan: plan to monitor skin, range of motion, strengthening, transfers and gait training antiboitics as per PMD, weight bearing as per ortho Status: Acute
[2018-03-26 19:31] VITALS: RESP 20
--- NOTE | 2018-03-26 19:50 | CP.PCM.PN ---
Subjective - Date & Time of Evaluation Date of Evaluation: 03/26/18 Time of Evaluation: 19:48 - Subjective Subjective: I D NOTE PATIENT NOW ON TCU NEEDS IV DAPTOMYCIN FOR 4 TO 6 WEEKS IVPB q48h Objective - Vital Signs/Intake and Output Vital Signs (last 24 hours): Temp Pulse Resp BP Pulse Ox 97.9 F 66 20 115/66 98 03/26/18 19:31 03/26/18 19:31 03/26/18 19:31 03/26/18 19:31 03/26/18 19:31 - Medications Medications: Current Medications Acetaminophen (Tylenol 325mg Tab) 975 mg PO Q6 [facility] Last Admin: 03/26/18 16:46 Dose: 975 mg Allopurinol (Zyloprim) 100 mg PO DAILY [facility] Last Admin: 03/26/18 08:25 Dose: 100 mg Amlodipine Besylate (Norvasc) 5 mg PO DAILY [facility] Last Admin: 03/26/18 08:25 Dose: 5 mg Atorvastatin Calcium (Lipitor) 20 mg PO DAILY@2200 [facility] Last Admin: 03/25/18 21:03 Dose: 20 mg Carvedilol (Coreg) 6.25 mg PO BID [facility] Last Admin: 03/26/18 16:45 Dose: 6.25 mg Cholecalciferol (Vitamin D) 2,000 intlu PO DAILY [facility] Last Admin: 03/26/18 08:26 Dose: 2,000 intlu Enoxaparin Sodium (Lovenox) 40 mg SC DAILY [facility] PRN Reason: Protocol Last Admin: 03/26/18 08:25 Dose: 40 mg Ferrous Sulfate (Feosol) 325 mg PO BID [facility] Last Admin: 03/26/18 16:45 Dose: 325 mg Folic Acid (Folic Acid) 1 mg PO DAILY [facility] Last Admin: 03/26/18 08:24 Dose: 1 mg Hydrochlorothiazide (Microzide) 12.5 mg PO DAILY [facility] Last Admin: 03/26/18 08:25 Dose: 12.5 mg Daptomycin 500 mg/ Sodium (Chloride) 100 mls @ 100 mls/hr IV Q48H [facility] PRN Reason: Protocol Stop: 03/30/18 21:01 Last Admin: 03/25/18 20:47 Dose: 100 mls/hr Losartan Potassium (Cozaar) 100 mg PO DAILY [facility] Last Admin: 03/26/18 08:27 Dose: 100 mg Multivitamins/Minerals (Therapeutic-M Tab) 1 tab PO DAILY [facility] Last Admin: 03/26/18 08:26 Dose: 1 tab Oxycodone HCl (Oxycodone Immediate Release Tab) 10 mg PO Q6 PRN PRN Reason: Pain, moderate (4-7) Senna/Docusate Sodium (Senokot S 50 Mg-8.6 Mg) 2 tab PO HS [facility] Last Admin: 03/25/18 21:03 Dose: 2 tab Tramadol HCl (Ultram) 50 mg PO Q6 PRN PRN Reason: Pain, moderate (4-7) Last Admin: 03/26/18 19:39 Dose: 50 mg - Labs Labs: 03/26/18 05:20 03/26/18 05:20
[2018-03-26] MEDS: Docusate-Senna 50 mg-8.6 mg Tab PO SCH (21:29)
[2018-03-27 07:02] LABS: BASO % 1.1 % (0.0-2.0); EOS # 0.2 K/uL (0.0-0.7); EOS % 4.2 % (0.0-4.0); HEMOGLOBIN 8.6 g/dL (12.0-16.0); LYMPH # 1.2 K/uL (1.0-4.3); MEAN CELL VOLUME 89.1 fl (81.0-99.0); MEAN CORPUSCULAR HEMOGLOBIN 29.7 pg (27.0-31.0); MEAN CORPUSCULAR HGB CONC 33.3 g/dL (33.0-37.0); MEAN PLATELET VOLUME 7.5 fl (7.2-11.7); MONO # 0.5 K/uL (0.0-0.8); MONO % 11.7 % (0.0-10.0); NEUT # 2.4 K/uL (1.8-7.0); PLATELET COUNT 324 K/uL (130-400); RBC 2.91 Mil/uL (3.80-5.20); WHITE BLOOD COUNT 4.3 K/uL (4.8-10.8)
[2018-03-27 07:37] LABS: ALB/GLOB RATIO 0.9 (1.0-2.1); ALBUMIN 3.3 g/dL (3.5-5.0); CALCIUM 8.8 mg/dL (8.4-10.2)
[2018-03-27 08:04] LABS: ERYTHROCYTE SEDIMENTATION RATE > 120 mm/hr (0-30)
[2018-03-27] MEDS: Enoxaparin 40 mg Syringe SC SCH (08:48)
[2018-03-27] MEDS: Multivitamin With Minerals Tab PO SCH (08:49)
[2018-03-27] MEDS: Cholecalciferol 1,000 INTLU TAB PO SCH (08:49)
--- NOTE | 2018-03-27 08:55 | CP.PCM.PN ---
Subjective - Date & Time of Evaluation Date of Evaluation: 03/27/18 Time of Evaluation: 08:54 - Subjective Subjective: Patient seen and examined working with PT comfortable. Pain well controlled at . No new complaints. Objective - Vital Signs/Intake and Output Vital Signs (last 24 hours): Temp Pulse Resp BP Pulse Ox 97.8 F 73 20 130/71 97 03/27/18 08:21 03/27/18 08:48 03/27/18 08:21 03/27/18 08:48 03/27/18 08:21 - Medications Medications: Current Medications Acetaminophen (Tylenol 325mg Tab) 975 mg PO Q6 [facility] Last Admin: 03/27/18 04:39 Dose: 975 mg Allopurinol (Zyloprim) 100 mg PO DAILY [facility] Last Admin: 03/27/18 08:49 Dose: 100 mg Amlodipine Besylate (Norvasc) 5 mg PO DAILY [facility] Last Admin: 03/27/18 08:48 Dose: 5 mg Atorvastatin Calcium (Lipitor) 20 mg PO DAILY@2200 [facility] Last Admin: 03/26/18 21:28 Dose: 20 mg Carvedilol (Coreg) 6.25 mg PO BID [facility] Last Admin: 03/27/18 08:47 Dose: 6.25 mg Cholecalciferol (Vitamin D) 2,000 intlu PO DAILY [facility] Last Admin: 03/27/18 08:49 Dose: 2,000 intlu Enoxaparin Sodium (Lovenox) 40 mg SC DAILY [facility] PRN Reason: Protocol Last Admin: 03/27/18 08:48 Dose: 40 mg Ferrous Sulfate (Feosol) 325 mg PO BID [facility] Last Admin: 03/27/18 08:48 Dose: 325 mg Folic Acid (Folic Acid) 1 mg PO DAILY [facility] Last Admin: 03/27/18 08:48 Dose: 1 mg Hydrochlorothiazide (Microzide) 12.5 mg PO DAILY [facility] Last Admin: 03/27/18 08:48 Dose: 12.5 mg Daptomycin 500 mg/ Sodium (Chloride) 100 mls @ 100 mls/hr IV Q48H [facility] PRN Reason: Protocol Stop: 03/30/18 21:01 Last Admin: 03/25/18 20:47 Dose: 100 mls/hr Losartan Potassium (Cozaar) 100 mg PO DAILY [facility] Last Admin: 03/27/18 08:47 Dose: 100 mg Multivitamins/Minerals (Therapeutic-M Tab) 1 tab PO DAILY [facility] Last Admin: 03/27/18 08:49 Dose: 1 tab Oxycodone HCl (Oxycodone Immediate Release Tab) 10 mg PO Q6 PRN PRN Reason: Pain, moderate (4-7) Senna/Docusate Sodium (Senokot S 50 Mg-8.6 Mg) 2 tab PO HS [facility] Last Admin: 03/26/18 21:29 Dose: Not Given Tramadol HCl (Ultram) 50 mg PO Q6 PRN PRN Reason: Pain, moderate (4-7) Last Admin: 03/26/18 19:39 Dose: 50 mg - Labs Labs: 03/27/18 06:00 03/27/18 06:00 - Extremities Exam Additional comments: R knee: knee imm intact, wet to dry betadine dressings intact sensation intact SP/DP/TN motor intact EHL/FHL/TA/G pedal pulses intact comps soft NT Assessment and Plan (1) Septic arthritis of knee, right Assessment & Plan: POD#6 s/p R knee I&D, soft tissue debridement, cementophyte debridement -wet to dry dressings to be changed tomorrow -maintain knee imm, not to be removed -pain control -abx as per ID -PT/OT FF 10% WB -above d/w Dr. Plummer in agreement Status: Acute
--- NOTE | 2018-03-27 14:25 | CP.PCM.PN ---
Subjective - Date & Time of Evaluation Date of Evaluation: 03/27/18 Time of Evaluation: 13:15 - Subjective Subjective: Patient seen and examined. Tolerating ambulating exercise with a walker in the hallway with therapist. Objective - Vital Signs/Intake and Output Vital Signs (last 24 hours): Temp Pulse Resp BP Pulse Ox 97.8 F 73 20 130/71 97 03/27/18 08:21 03/27/18 08:48 03/27/18 08:21 03/27/18 08:48 03/27/18 08:21 - Medications Medications: Current Medications Acetaminophen (Tylenol 325mg Tab) 975 mg PO Q6 [facility] Last Admin: 03/27/18 09:34 Dose: 975 mg Allopurinol (Zyloprim) 100 mg PO DAILY [facility] Last Admin: 03/27/18 08:49 Dose: 100 mg Amlodipine Besylate (Norvasc) 5 mg PO DAILY [facility] Last Admin: 03/27/18 08:48 Dose: 5 mg Atorvastatin Calcium (Lipitor) 20 mg PO DAILY@2200 [facility] Last Admin: 03/26/18 21:28 Dose: 20 mg Carvedilol (Coreg) 6.25 mg PO BID [facility] Last Admin: 03/27/18 08:47 Dose: 6.25 mg Cholecalciferol (Vitamin D) 2,000 intlu PO DAILY [facility] Last Admin: 03/27/18 08:49 Dose: 2,000 intlu Enoxaparin Sodium (Lovenox) 40 mg SC DAILY [facility] PRN Reason: Protocol Last Admin: 03/27/18 08:48 Dose: 40 mg Ferrous Sulfate (Feosol) 325 mg PO BID [facility] Last Admin: 03/27/18 08:48 Dose: 325 mg Folic Acid (Folic Acid) 1 mg PO DAILY [facility] Last Admin: 03/27/18 08:48 Dose: 1 mg Hydrochlorothiazide (Microzide) 12.5 mg PO DAILY [facility] Last Admin: 03/27/18 08:48 Dose: 12.5 mg Daptomycin 500 mg/ Sodium (Chloride) 100 mls @ 100 mls/hr IV Q48H [facility] PRN Reason: Protocol Stop: 03/30/18 21:01 Last Admin: 03/25/18 20:47 Dose: 100 mls/hr Losartan Potassium (Cozaar) 100 mg PO DAILY [facility] Last Admin: 03/27/18 08:47 Dose: 100 mg Multivitamins/Minerals (Therapeutic-M Tab) 1 tab PO DAILY [facility] Last Admin: 03/27/18 08:49 Dose: 1 tab Oxycodone HCl (Oxycodone Immediate Release Tab) 10 mg PO Q6 PRN PRN Reason: Pain, moderate (4-7) Senna/Docusate Sodium (Senokot S 50 Mg-8.6 Mg) 2 tab PO HS [facility] Last Admin: 03/26/18 21:29 Dose: Not Given Tramadol HCl (Ultram) 50 mg PO Q6 PRN PRN Reason: Pain, moderate (4-7) Last Admin: 03/27/18 13:14 Dose: 50 mg - Labs Labs: 03/27/18 06:00 03/27/18 06:00 - Constitutional Appears: No Acute Distress - Head Exam Head Exam: ATRAUMATIC - Eye Exam Eye Exam: absent: Scleral icterus - ENT Exam ENT Exam: Mucous Membranes Moist - Neck Exam Neck Exam: absent: Meningismus - Respiratory Exam Respiratory Exam: absent: Rales, Rhonchi, Wheezes, Respiratory Distress - Cardiovascular Exam Cardiovascular Exam: REGULAR RHYTHM, +S1, +S2 - GI/Abdominal Exam GI & Abdominal Exam: Soft. absent: Tenderness - Rectal Exam Rectal Exam: Deferred - Extremities Exam Extremities Exam: Joint Swelling (slight swelling on right knee) - Neurological Exam Neurological Exam: Alert, Oriented x3 - Psychiatric Exam Psychiatric exam: Normal Affect - Skin Skin Exam: Dry, Intact Assessment and Plan (1) Status post total right knee replacement Status: Acute - Assessment and Plan (Free Text) Assessment: 52 yo male with history of Bipolar DO, Hypothyroid and HLD was transferred from [facility] after thoracotomy with decortication and empyema evacuation for purpose of continuation of IV antibiotics. He was found to be positive for Mycoplasma IgM in the blood, Stap aureus in sputum culture and Strep viridans in lung tissue culture. He was started on IV Zosyn (to DC on 04/04/18) and PO Zithromax (DC on 03/30/18). 1. Pneumonia with Empyema left lung empyema drained on 03/16/18 left lung decorticated, culture grew Strep Viridans continue IV Zosyn and PO Zithromax 2. Hypothyroid continue Levothyroxine 175mcg PO daily 3. Bipolar DO continue Seroquel XR 450mg PO HS
[2018-03-27] MEDS: DAPTOmycin 500 MG in Sodium Chloride 0.9% 100 ML IV SCH (21:18)
[2018-03-28] MEDS: Docusate-Senna 50 mg-8.6 mg Tab PO SCH ×2 (01:54→21:53)
[2018-03-28] MEDS: Cholecalciferol 1,000 INTLU TAB PO SCH (08:45)
[2018-03-28] MEDS: Enoxaparin 40 mg Syringe SC SCH (08:46)
[2018-03-28] MEDS: Multivitamin With Minerals Tab PO SCH (08:47)
--- NOTE | 2018-03-28 13:11 | CP.PCM.PN ---
Subjective - Date & Time of Evaluation Date of Evaluation: 03/28/18 Time of Evaluation: 15:00 - Subjective Subjective: Patient seen and examined OOB to chair comfortable. Pain well controlled. Tolerated PT well. No new complaints. Objective - Vital Signs/Intake and Output Vital Signs (last 24 hours): Temp Pulse Resp BP Pulse Ox 98.1 F 72 20 122/68 97 03/28/18 08:38 03/28/18 08:45 03/28/18 08:38 03/28/18 08:45 03/28/18 08:38 - Medications Medications: Current Medications Acetaminophen (Tylenol 325mg Tab) 975 mg PO Q8 [facility] Allopurinol (Zyloprim) 100 mg PO DAILY [facility] Last Admin: 03/28/18 08:44 Dose: 100 mg Amlodipine Besylate (Norvasc) 5 mg PO DAILY [facility] Last Admin: 03/28/18 08:44 Dose: 5 mg Atorvastatin Calcium (Lipitor) 20 mg PO DAILY@2200 [facility] Last Admin: 03/27/18 21:18 Dose: 20 mg Carvedilol (Coreg) 6.25 mg PO BID [facility] Last Admin: 03/28/18 08:45 Dose: 6.25 mg Cholecalciferol (Vitamin D) 2,000 intlu PO DAILY [facility] Last Admin: 03/28/18 08:45 Dose: 2,000 intlu Ferrous Sulfate (Feosol) 325 mg PO BID [facility] Last Admin: 03/28/18 08:46 Dose: 325 mg Folic Acid (Folic Acid) 1 mg PO DAILY [facility] Last Admin: 03/28/18 08:46 Dose: 1 mg Hydrochlorothiazide (Microzide) 12.5 mg PO DAILY [facility] Last Admin: 03/28/18 08:46 Dose: 12.5 mg Daptomycin 500 mg/ Sodium (Chloride) 100 mls @ 100 mls/hr IV Q48H [facility] PRN Reason: Protocol Stop: 03/30/18 21:01 Last Admin: 03/27/18 21:18 Dose: 100 mls/hr Losartan Potassium (Cozaar) 100 mg PO DAILY [facility] Last Admin: 03/28/18 08:44 Dose: 100 mg Multivitamins/Minerals (Therapeutic-M Tab) 1 tab PO DAILY [facility] Last Admin: 03/28/18 08:47 Dose: 1 tab Oxycodone HCl (Oxycodone Immediate Release Tab) 10 mg PO Q6 PRN PRN Reason: Pain, moderate (4-7) Senna/Docusate Sodium (Senokot S 50 Mg-8.6 Mg) 2 tab PO HS [facility] Last Admin: 03/28/18 01:54 Dose: Not Given Tramadol HCl (Ultram) 50 mg PO Q6 PRN PRN Reason: Pain, moderate (4-7) Last Admin: 03/27/18 13:14 Dose: 50 mg - Labs Labs: 03/27/18 06:00 03/27/18 06:00 - Extremities Exam Additional comments: R knee: knee imm intact, prevena dressing intact at 125 mmHG continuous sensation intact SP/DP/TN motor intact EHL/FHL/TA/G pedal pulses intact comps soft NT Assessment and Plan (1) Septic arthritis of knee, right Assessment & Plan: POD#7 s/p R knee I&D, soft tissue debridement, cementophyte debridement -prevena dressings applied by wound care nurse as per Dr. Plummer's order -maintain knee imm, not to be removed -abx as per ID -PT/OT FF 10% WB -above d/w Dr. Plummer in agreement Status: Acute
--- NOTE | 2018-03-28 14:26 | CP.PCM.PN ---
Subjective - Date & Time of Evaluation Date of Evaluation: 03/28/18 Time of Evaluation: 11:30 - Subjective Subjective: no acute complaints at present Objective - Vital Signs/Intake and Output Vital Signs (last 24 hours): Temp Pulse Resp BP Pulse Ox 98.1 F 72 20 122/68 97 03/28/18 08:38 03/28/18 08:45 03/28/18 08:38 03/28/18 08:45 03/28/18 08:38 - Medications Medications: Current Medications Acetaminophen (Tylenol 325mg Tab) 975 mg PO Q8 [facility] Allopurinol (Zyloprim) 100 mg PO DAILY [facility] Last Admin: 03/28/18 08:44 Dose: 100 mg Amlodipine Besylate (Norvasc) 5 mg PO DAILY [facility] Last Admin: 03/28/18 08:44 Dose: 5 mg Atorvastatin Calcium (Lipitor) 20 mg PO DAILY@2200 [facility] Last Admin: 03/27/18 21:18 Dose: 20 mg Carvedilol (Coreg) 6.25 mg PO BID [facility] Last Admin: 03/28/18 08:45 Dose: 6.25 mg Cholecalciferol (Vitamin D) 2,000 intlu PO DAILY [facility] Last Admin: 03/28/18 08:45 Dose: 2,000 intlu Ferrous Sulfate (Feosol) 325 mg PO BID [facility] Last Admin: 03/28/18 08:46 Dose: 325 mg Folic Acid (Folic Acid) 1 mg PO DAILY [facility] Last Admin: 03/28/18 08:46 Dose: 1 mg Hydrochlorothiazide (Microzide) 12.5 mg PO DAILY [facility] Last Admin: 03/28/18 08:46 Dose: 12.5 mg Daptomycin 500 mg/ Sodium (Chloride) 100 mls @ 100 mls/hr IV Q48H [facility] PRN Reason: Protocol Stop: 03/30/18 21:01 Last Admin: 03/27/18 21:18 Dose: 100 mls/hr Losartan Potassium (Cozaar) 100 mg PO DAILY [facility] Last Admin: 03/28/18 08:44 Dose: 100 mg Multivitamins/Minerals (Therapeutic-M Tab) 1 tab PO DAILY [facility] Last Admin: 03/28/18 08:47 Dose: 1 tab Oxycodone HCl (Oxycodone Immediate Release Tab) 10 mg PO Q6 PRN PRN Reason: Pain, moderate (4-7) Senna/Docusate Sodium (Senokot S 50 Mg-8.6 Mg) 2 tab PO HS [facility] Last Admin: 03/28/18 01:54 Dose: Not Given Tramadol HCl (Ultram) 50 mg PO Q6 PRN PRN Reason: Pain, moderate (4-7) Last Admin: 03/27/18 13:14 Dose: 50 mg - Labs Labs: 03/27/18 06:00 03/27/18 06:00 - Head Exam Head Exam: ATRAUMATIC, NORMAL INSPECTION, NORMOCEPHALIC - Eye Exam Eye Exam: EOMI, Normal appearance, PERRL Pupil Exam: NORMAL ACCOMODATION - ENT Exam ENT Exam: Mucous Membranes Moist, Normal Exam - Neck Exam Neck Exam: Full ROM, Normal Inspection - Respiratory Exam Respiratory Exam: Clear to Ausculation Bilateral, NORMAL BREATHING PATTERN - Cardiovascular Exam Cardiovascular Exam: REGULAR RHYTHM - GI/Abdominal Exam GI & Abdominal Exam: Soft, Normal Bowel Sounds - Rectal Exam Rectal Exam: NORMAL INSPECTION - Exam External exam: NORMAL EXTERNAL EXAM - Extremities Exam Extremities Exam: Full ROM, Normal Capillary Refill, Normal Inspection - Back Exam Back Exam: NORMAL INSPECTION - Neurological Exam Neurological Exam: Alert, Awake Neuro motor strength exam: Left Upper Extremity: 3, Right Upper Extremity: 3, Left Lower Extremity: 3, Right Lower Extremity: 3 - Psychiatric Exam Psychiatric exam: Normal Affect, Normal Mood - Skin Skin Exam: Dry, Intact, Normal Color Assessment and Plan (1) Acute blood loss anemia Status: Acute (2) Osteoarthritis of right knee Status: Acute (3) Septic arthritis of knee, right Status: Acute (4) Status post total right knee replacement Assessment & Plan: physical, occupational, right knee immobilizer on the right leg treatemtn to knee as per orth continue rehab Status: Acute
--- NOTE | 2018-03-29 08:31 | CP.PCM.PN ---
Subjective - Date & Time of Evaluation Date of Evaluation: 03/29/18 Time of Evaluation: 07:45 - Subjective Subjective: Patient seen and examined at bedside comfortable. Pain well controlled. No new complaints at this time. Objective - Vital Signs/Intake and Output Vital Signs (last 24 hours): Temp Pulse Resp BP Pulse Ox 98.1 F 76 20 136/77 93 L 03/29/18 08:01 03/29/18 08:01 03/29/18 08:01 03/29/18 08:01 03/29/18 08:01 - Medications Medications: Current Medications Acetaminophen (Tylenol 325mg Tab) 975 mg PO Q8 [facility] Last Admin: 03/29/18 06:55 Dose: Not Given Allopurinol (Zyloprim) 100 mg PO DAILY [facility] Last Admin: 03/28/18 08:44 Dose: 100 mg Amlodipine Besylate (Norvasc) 5 mg PO DAILY [facility] Last Admin: 03/28/18 08:44 Dose: 5 mg Atorvastatin Calcium (Lipitor) 20 mg PO DAILY@2200 [facility] Last Admin: 03/28/18 21:53 Dose: 20 mg Carvedilol (Coreg) 6.25 mg PO BID [facility] Last Admin: 03/28/18 16:12 Dose: 6.25 mg Cholecalciferol (Vitamin D) 2,000 intlu PO DAILY [facility] Last Admin: 03/28/18 08:45 Dose: 2,000 intlu Ferrous Sulfate (Feosol) 325 mg PO BID [facility] Last Admin: 03/28/18 16:14 Dose: 325 mg Folic Acid (Folic Acid) 1 mg PO DAILY [facility] Last Admin: 03/28/18 08:46 Dose: 1 mg Hydrochlorothiazide (Microzide) 12.5 mg PO DAILY [facility] Last Admin: 03/28/18 08:46 Dose: 12.5 mg Daptomycin 500 mg/ Sodium (Chloride) 100 mls @ 100 mls/hr IV Q48H [facility] PRN Reason: Protocol Stop: 03/30/18 21:01 Last Admin: 03/27/18 21:18 Dose: 100 mls/hr Losartan Potassium (Cozaar) 100 mg PO DAILY [facility] Last Admin: 03/28/18 08:44 Dose: 100 mg Multivitamins/Minerals (Therapeutic-M Tab) 1 tab PO DAILY [facility] Last Admin: 03/28/18 08:47 Dose: 1 tab Oxycodone HCl (Oxycodone Immediate Release Tab) 10 mg PO Q6 PRN PRN Reason: Pain, moderate (4-7) Senna/Docusate Sodium (Senokot S 50 Mg-8.6 Mg) 2 tab PO HS [facility] Last Admin: 03/28/18 21:53 Dose: Not Given Tramadol HCl (Ultram) 50 mg PO Q6 PRN PRN Reason: Pain, moderate (4-7) Last Admin: 03/28/18 21:52 Dose: 50 mg - Labs Labs: 03/27/18 06:00 03/27/18 06:00 - Extremities Exam Additional comments: R knee: knee imm intact, prevena dressing intact at 125 mmHG continuous sensation intact SP/DP/TN motor intact EHL/FHL/TA/G pedal pulses intact comps soft NT Assessment and Plan (1) Septic arthritis of knee, right Assessment & Plan: POD#8 s/p R knee I&D, soft tissue debridement, cementophyte debridement -prevena intact, will continue and will be discharged with portable unit -maintain knee imm, not to be removed -abx as per ID -PT/OT FF 10% WB -above d/w Dr. Plummer in agreement Status: Acute
[2018-03-29] MEDS: Multivitamin With Minerals Tab PO SCH (08:40)
[2018-03-29] MEDS: Cholecalciferol 1,000 INTLU TAB PO SCH (08:40)
[2018-03-29] MEDS: Enoxaparin 40 mg Syringe SC SCH (14:41)
--- NOTE | 2018-03-29 18:24 | CP.PCM.PN ---
Subjective - Date & Time of Evaluation Date of Evaluation: 03/29/18 Time of Evaluation: 18:24 - Subjective Subjective: no new complaints pain controlled having bm appetite good working with pt Objective - Vital Signs/Intake and Output Vital Signs (last 24 hours): Temp Pulse Resp BP Pulse Ox 97.9 F 73 20 116/67 94 L 03/29/18 16:26 03/29/18 16:26 03/29/18 16:26 03/29/18 16:26 03/29/18 16:26 - Medications Medications: Current Medications Acetaminophen (Tylenol 325mg Tab) 975 mg PO Q8 [facility] Last Admin: 03/29/18 17:10 Dose: 975 mg Allopurinol (Zyloprim) 100 mg PO DAILY [facility] Last Admin: 03/29/18 08:40 Dose: 100 mg Amlodipine Besylate (Norvasc) 5 mg PO DAILY [facility] Last Admin: 03/29/18 08:39 Dose: 5 mg Atorvastatin Calcium (Lipitor) 20 mg PO DAILY@2200 [facility] Last Admin: 03/28/18 21:53 Dose: 20 mg Carvedilol (Coreg) 6.25 mg PO BID [facility] Last Admin: 03/29/18 17:07 Dose: 6.25 mg Cholecalciferol (Vitamin D) 2,000 intlu PO DAILY [facility] Last Admin: 03/29/18 08:40 Dose: 2,000 intlu Enoxaparin Sodium (Lovenox) 40 mg SC DAILY [facility] PRN Reason: Protocol Last Admin: 03/29/18 14:41 Dose: 40 mg Ferrous Sulfate (Feosol) 325 mg PO BID [facility] Last Admin: 03/29/18 17:07 Dose: 325 mg Folic Acid (Folic Acid) 1 mg PO DAILY [facility] Last Admin: 03/29/18 08:39 Dose: 1 mg Hydrochlorothiazide (Microzide) 12.5 mg PO DAILY [facility] Last Admin: 03/29/18 08:39 Dose: 12.5 mg Daptomycin 500 mg/ Sodium (Chloride) 100 mls @ 100 mls/hr IV Q48H [facility] PRN Reason: Protocol Stop: 03/30/18 21:01 Last Admin: 03/27/18 21:18 Dose: 100 mls/hr Losartan Potassium (Cozaar) 100 mg PO DAILY [facility] Last Admin: 03/29/18 08:39 Dose: 100 mg Multivitamins/Minerals (Therapeutic-M Tab) 1 tab PO DAILY [facility] Last Admin: 03/29/18 08:40 Dose: 1 tab Oxycodone HCl (Oxycodone Immediate Release Tab) 10 mg PO Q6 PRN PRN Reason: Pain, moderate (4-7) Senna/Docusate Sodium (Senokot S 50 Mg-8.6 Mg) 2 tab PO HS [facility] Last Admin: 03/28/18 21:53 Dose: Not Given Tramadol HCl (Ultram) 50 mg PO Q6 PRN PRN Reason: Pain, moderate (4-7) Last Admin: 03/29/18 14:40 Dose: 50 mg - Labs Labs: 03/27/18 06:00 03/27/18 06:00 - Constitutional Appears: Well, No Acute Distress - Head Exam Head Exam: ATRAUMATIC, NORMAL INSPECTION, NORMOCEPHALIC - ENT Exam ENT Exam: Mucous Membranes Moist - Respiratory Exam Respiratory Exam: Clear to Ausculation Bilateral, NORMAL BREATHING PATTERN. absent: Rales, Rhonchi, Wheezes - Cardiovascular Exam Cardiovascular Exam: REGULAR RHYTHM, +S1, +S2 - GI/Abdominal Exam GI & Abdominal Exam: Soft, Normal Bowel Sounds. absent: Tenderness - Extremities Exam Additional comments: left lower ext in immobilizer - Neurological Exam Neurological Exam: Alert, Awake, Oriented x3 Assessment and Plan - Assessment and Plan (Free Text) Assessment: 67 yo female with history of HTN, HLD and OA had right TKR on 01/22/18 which got infected. She had I&D with revision and antibiotic bead placement on 03/21/18 and started on IV Daptomycin. She was transferred to TCU on 03/25/18 for continuation of IV antibiotics and therapy. 1. Post Right TKR Revision continue PT/OT continue IV Daptomycin Dr Plummer on orthopedic consult Dr Bolivar on ID consult 2. HTN BP controlled continue Coreg, Amlodipine and HCTZ 3. HLD on Lipitor 4. CLYDE serum creatinine: 1.2 5. DVT prophylaxis on Lovenox
[2018-03-29] MEDS: DAPTOmycin 500 MG in Sodium Chloride 0.9% 100 ML IV SCH (22:02)
[2018-03-29] MEDS: Docusate-Senna 50 mg-8.6 mg Tab PO SCH (22:04)
[2018-03-30] MEDS: Multivitamin With Minerals Tab PO SCH (09:22)
[2018-03-30] MEDS: Cholecalciferol 1,000 INTLU TAB PO SCH (09:22)
[2018-03-30] MEDS: Enoxaparin 40 mg Syringe SC SCH (09:23)
--- NOTE | 2018-03-30 09:34 | CP.PCM.PN ---
Subjective - Date & Time of Evaluation Date of Evaluation: 03/30/18 Time of Evaluation: 09:32 - Subjective Subjective: I D NOTE DOING WELL OUTPATIENT ORDERS WRITTEN CPK ORDERED Objective - Vital Signs/Intake and Output Vital Signs (last 24 hours): Temp Pulse Resp BP Pulse Ox 100.9 F H 73 20 115/69 94 L 03/29/18 20:52 03/29/18 20:52 03/29/18 20:52 03/29/18 20:52 03/29/18 20:52 - Medications Medications: Current Medications Acetaminophen (Tylenol 325mg Tab) 975 mg PO Q8 [facility] Last Admin: 03/30/18 09:26 Dose: 975 mg Allopurinol (Zyloprim) 100 mg PO DAILY [facility] Last Admin: 03/30/18 09:22 Dose: 100 mg Amlodipine Besylate (Norvasc) 5 mg PO DAILY [facility] Last Admin: 03/30/18 09:22 Dose: 5 mg Atorvastatin Calcium (Lipitor) 20 mg PO DAILY@2200 [facility] Last Admin: 03/29/18 22:03 Dose: 20 mg Carvedilol (Coreg) 6.25 mg PO BID [facility] Last Admin: 03/30/18 09:22 Dose: 6.25 mg Cholecalciferol (Vitamin D) 2,000 intlu PO DAILY [facility] Last Admin: 03/30/18 09:22 Dose: 2,000 intlu Enoxaparin Sodium (Lovenox) 40 mg SC DAILY [facility] PRN Reason: Protocol Last Admin: 03/30/18 09:23 Dose: 40 mg Ferrous Sulfate (Feosol) 325 mg PO BID [facility] Last Admin: 03/30/18 09:22 Dose: 325 mg Folic Acid (Folic Acid) 1 mg PO DAILY [facility] Last Admin: 03/30/18 09:22 Dose: 1 mg Hydrochlorothiazide (Microzide) 12.5 mg PO DAILY [facility] Last Admin: 03/30/18 09:22 Dose: 12.5 mg Daptomycin 500 mg/ Sodium (Chloride) 100 mls @ 100 mls/hr IV Q48H [facility] PRN Reason: Protocol Stop: 03/30/18 21:01 Last Admin: 03/29/18 22:02 Dose: 100 mls/hr Losartan Potassium (Cozaar) 100 mg PO DAILY [facility] Last Admin: 03/30/18 09:22 Dose: 100 mg Multivitamins/Minerals (Therapeutic-M Tab) 1 tab PO DAILY [facility] Last Admin: 03/30/18 09:22 Dose: 1 tab Oxycodone HCl (Oxycodone Immediate Release Tab) 10 mg PO Q6 PRN PRN Reason: Pain, moderate (4-7) Senna/Docusate Sodium (Senokot S 50 Mg-8.6 Mg) 2 tab PO HS [facility] Last Admin: 03/29/18 22:04 Dose: Not Given Tramadol HCl (Ultram) 50 mg PO Q6 PRN PRN Reason: Pain, moderate (4-7) Last Admin: 03/30/18 09:21 Dose: 50 mg - Labs Labs: 03/27/18 06:00 03/27/18 06:00
--- NOTE | 2018-03-30 11:36 | CP.PCM.PN ---
Subjective - Date & Time of Evaluation Date of Evaluation: 03/30/18 Time of Evaluation: 10:00 - Subjective Subjective: Patient says pain is controlled. Plan for d/c home tomorrow with portable prevena. Objective - Vital Signs/Intake and Output Vital Signs (last 24 hours): Temp Pulse Resp BP Pulse Ox 97.9 F 68 20 129/71 97 03/30/18 10:06 03/30/18 10:06 03/30/18 10:06 03/30/18 10:06 03/30/18 10:06 - Medications Medications: Current Medications Acetaminophen (Tylenol 325mg Tab) 975 mg PO Q8 [facility] Last Admin: 03/30/18 09:26 Dose: 975 mg Allopurinol (Zyloprim) 100 mg PO DAILY [facility] Last Admin: 03/30/18 09:22 Dose: 100 mg Amlodipine Besylate (Norvasc) 5 mg PO DAILY [facility] Last Admin: 03/30/18 09:22 Dose: 5 mg Atorvastatin Calcium (Lipitor) 20 mg PO DAILY@2200 [facility] Last Admin: 03/29/18 22:03 Dose: 20 mg Carvedilol (Coreg) 6.25 mg PO BID [facility] Last Admin: 03/30/18 09:22 Dose: 6.25 mg Cholecalciferol (Vitamin D) 2,000 intlu PO DAILY [facility] Last Admin: 03/30/18 09:22 Dose: 2,000 intlu Enoxaparin Sodium (Lovenox) 40 mg SC DAILY [facility] PRN Reason: Protocol Last Admin: 03/30/18 09:23 Dose: 40 mg Ferrous Sulfate (Feosol) 325 mg PO BID [facility] Last Admin: 03/30/18 09:22 Dose: 325 mg Folic Acid (Folic Acid) 1 mg PO DAILY [facility] Last Admin: 03/30/18 09:22 Dose: 1 mg Hydrochlorothiazide (Microzide) 12.5 mg PO DAILY [facility] Last Admin: 03/30/18 09:22 Dose: 12.5 mg Daptomycin 500 mg/ Sodium (Chloride) 100 mls @ 100 mls/hr IV Q48H [facility] PRN Reason: Protocol Stop: 03/30/18 21:01 Last Admin: 03/29/18 22:02 Dose: 100 mls/hr Losartan Potassium (Cozaar) 100 mg PO DAILY [facility] Last Admin: 03/30/18 09:22 Dose: 100 mg Multivitamins/Minerals (Therapeutic-M Tab) 1 tab PO DAILY [facility] Last Admin: 03/30/18 09:22 Dose: 1 tab Oxycodone HCl (Oxycodone Immediate Release Tab) 10 mg PO Q6 PRN PRN Reason: Pain, moderate (4-7) Senna/Docusate Sodium (Senokot S 50 Mg-8.6 Mg) 2 tab PO HS [facility] Last Admin: 03/29/18 22:04 Dose: Not Given Tramadol HCl (Ultram) 50 mg PO Q6 PRN PRN Reason: Pain, moderate (4-7) Last Admin: 03/30/18 09:21 Dose: 50 mg - Labs Labs: 03/27/18 06:00 03/27/18 06:00 - Extremities Exam Additional comments: right knee: prevena intact, functioning, still yellowish serous drainage noted +ROM ankle/toes, sesation intact, calves soft NT neg homans +DP/PT pulses Assessment and Plan (1) Status post total right knee replacement Assessment & Plan: antibiotics per ID cont wound vac at home with portable device continue VTE proph f/u Dr. Plummer within 7 days for dressing removal d/w DR. Plummer, agrees with above Status: Acute
--- NOTE | 2018-03-30 12:32 | CP.PCM.PN ---
Subjective - Date & Time of Evaluation Date of Evaluation: 03/30/18 Time of Evaluation: 09:10 - Subjective Subjective: no acute leg pain Objective - Vital Signs/Intake and Output Vital Signs (last 24 hours): Temp Pulse Resp BP Pulse Ox 97.9 F 68 20 129/71 97 03/30/18 10:06 03/30/18 10:06 03/30/18 10:06 03/30/18 10:06 03/30/18 10:06 - Medications Medications: Current Medications Acetaminophen (Tylenol 325mg Tab) 975 mg PO Q8 [facility] Last Admin: 03/30/18 09:26 Dose: 975 mg Allopurinol (Zyloprim) 100 mg PO DAILY [facility] Last Admin: 03/30/18 09:22 Dose: 100 mg Amlodipine Besylate (Norvasc) 5 mg PO DAILY [facility] Last Admin: 03/30/18 09:22 Dose: 5 mg Atorvastatin Calcium (Lipitor) 20 mg PO DAILY@2200 [facility] Last Admin: 03/29/18 22:03 Dose: 20 mg Carvedilol (Coreg) 6.25 mg PO BID [facility] Last Admin: 03/30/18 09:22 Dose: 6.25 mg Cholecalciferol (Vitamin D) 2,000 intlu PO DAILY [facility] Last Admin: 03/30/18 09:22 Dose: 2,000 intlu Enoxaparin Sodium (Lovenox) 40 mg SC DAILY [facility] PRN Reason: Protocol Last Admin: 03/30/18 09:23 Dose: 40 mg Ferrous Sulfate (Feosol) 325 mg PO BID [facility] Last Admin: 03/30/18 09:22 Dose: 325 mg Folic Acid (Folic Acid) 1 mg PO DAILY [facility] Last Admin: 03/30/18 09:22 Dose: 1 mg Hydrochlorothiazide (Microzide) 12.5 mg PO DAILY [facility] Last Admin: 03/30/18 09:22 Dose: 12.5 mg Daptomycin 500 mg/ Sodium (Chloride) 100 mls @ 100 mls/hr IV Q48H [facility] PRN Reason: Protocol Stop: 03/30/18 21:01 Last Admin: 03/29/18 22:02 Dose: 100 mls/hr Losartan Potassium (Cozaar) 100 mg PO DAILY [facility] Last Admin: 03/30/18 09:22 Dose: 100 mg Multivitamins/Minerals (Therapeutic-M Tab) 1 tab PO DAILY [facility] Last Admin: 03/30/18 09:22 Dose: 1 tab Oxycodone HCl (Oxycodone Immediate Release Tab) 10 mg PO Q6 PRN PRN Reason: Pain, moderate (4-7) Senna/Docusate Sodium (Senokot S 50 Mg-8.6 Mg) 2 tab PO HS [facility] Last Admin: 03/29/18 22:04 Dose: Not Given Tramadol HCl (Ultram) 50 mg PO Q6 PRN PRN Reason: Pain, moderate (4-7) Last Admin: 03/30/18 09:21 Dose: 50 mg - Labs Labs: 03/27/18 06:00 03/27/18 06:00 - Head Exam Head Exam: ATRAUMATIC, NORMAL INSPECTION, NORMOCEPHALIC - Eye Exam Eye Exam: EOMI, Normal appearance, PERRL Pupil Exam: NORMAL ACCOMODATION, PERRL - ENT Exam ENT Exam: Mucous Membranes Moist, Normal Exam - Neck Exam Neck Exam: Normal Inspection - Respiratory Exam Respiratory Exam: Clear to Ausculation Bilateral, NORMAL BREATHING PATTERN - Cardiovascular Exam Cardiovascular Exam: REGULAR RHYTHM - GI/Abdominal Exam GI & Abdominal Exam: Soft, Normal Bowel Sounds - Rectal Exam Rectal Exam: NORMAL INSPECTION - Exam External exam: NORMAL EXTERNAL EXAM - Extremities Exam Extremities Exam: Full ROM, Normal Capillary Refill, Normal Inspection - Back Exam Back Exam: NORMAL INSPECTION - Neurological Exam Neurological Exam: Alert, Awake Neuro motor strength exam: Right Lower Extremity: 3 (knee immobilizer) - Psychiatric Exam Psychiatric exam: Normal Affect, Normal Mood - Skin Skin Exam: Dry, Intact Assessment and Plan (1) Acute blood loss anemia Status: Acute (2) Osteoarthritis of right knee Status: Acute (3) Septic arthritis of knee, right Status: Acute (4) Status post total right knee replacement Assessment & Plan: plan for physical, occupational therapy program precautions as per ortho Status: Acute
[2018-03-30] MEDS: Docusate-Senna 50 mg-8.6 mg Tab PO SCH (21:44)
[2018-03-31 08:05] VITALS: BP 134/70; PULSE 72; TEMP 97.8; O2SAT 99
[2018-03-31] MEDS: Multivitamin With Minerals Tab PO SCH (09:36)
[2018-03-31] MEDS: Cholecalciferol 1,000 INTLU TAB PO SCH (09:38)
[2018-03-31] MEDS: Enoxaparin 40 mg Syringe SC SCH (09:40)
--- NOTE | 2018-03-31 11:45 | CP.PCM.DIS ---
Provider - Provider Date of Admission: 03/24/18 16:51 Attending physician: Aba Bangura DO Primary care physician: Len Plummer III, MD Consults: Dr Kavitha Bolivar Time Spent in preparation of Discharge (in minutes): 25 Diagnosis - Discharge Diagnosis (1) Status post total knee replacement, right Status: Acute Comment: post right TKR revision. continue IV Daptomycin at home. follow up with Dr Plummer in a week (2) HTN (hypertension) Status: Chronic Comment: BP stable. continue Coreg, Norvasc and HCTZ (3) HLD (hyperlipidemia) Status: Chronic Comment: continue Lipitor Hospital Course - Lab Results Lab Results: Most Recent Lab Values WBC 4.3 K/uL (4.8-10.8) L 03/27/18 06:00 RBC 2.91 Mil/uL (3.80-5.20) L 03/27/18 06:00 Hgb 8.6 g/dL (12.0-16.0) L 03/27/18 06:00 Hct 25.9 % (34.0-47.0) L 03/27/18 06:00 MCV 89.1 fl (81.0-99.0) 03/27/18 06:00 MCH 29.7 pg (27.0-31.0) 03/27/18 06:00 MCHC 33.3 g/dL (33.0-37.0) 03/27/18 06:00 RDW 14.0 % (11.5-14.5) 03/27/18 06:00 Plt Count 324 K/uL (130-400) 03/27/18 06:00 MPV 7.5 fl (7.2-11.7) 03/27/18 06:00 Neut % (Auto) 56.0 % (50.0-75.0) 03/27/18 06:00 Lymph % (Auto) 27.0 % (20.0-40.0) 03/27/18 06:00 Hardy % (Auto) 11.7 % (0.0-10.0) H 03/27/18 06:00 Eos % (Auto) 4.2 % (0.0-4.0) H 03/27/18 06:00 Baso % (Auto) 1.1 % (0.0-2.0) 03/27/18 06:00 Neut # (Auto) 2.4 K/uL (1.8-7.0) 03/27/18 06:00 Lymph # (Auto) 1.2 K/uL (1.0-4.3) 03/27/18 06:00 Hardy # (Auto) 0.5 K/uL (0.0-0.8) 03/27/18 06:00 Eos # (Auto) 0.2 K/uL (0.0-0.7) 03/27/18 06:00 Baso # (Auto) 0.0 K/uL (0.0-0.2) 03/27/18 06:00 ESR > 120 mm/hr (0-30) H 03/27/18 06:00 Sodium 141 mmol/l (132-148) 03/27/18 06:00 Potassium 4.2 MMOL/L (3.6-5.0) 03/27/18 06:00 Chloride 108 mmol/L (98-107) H 03/27/18 06:00 Carbon Dioxide 24 mmol/L (22-30) 03/27/18 06:00 Anion Gap 13 (10-20) 03/27/18 06:00 BUN 19 mg/dl (7-17) H 03/27/18 06:00 Creatinine 1.2 mg/dl (0.7-1.2) 03/27/18 06:00 Est GFR ( Amer) 54 03/27/18 06:00 Est GFR (Non-Af Amer) 45 03/27/18 06:00 Random Glucose 102 mg/dL (65-105) 03/27/18 06:00 Calcium 8.8 mg/dL (8.4-10.2) 03/27/18 06:00 Total Bilirubin 0.3 mg/dl (0.2-1.3) 03/27/18 06:00 AST 42 U/L (14-36) H D 03/27/18 06:00 ALT 26 U/L (9-52) 03/27/18 06:00 Alkaline Phosphatase 59 U/L (38-126) 03/27/18 06:00 Total Creatine Kinase 45 U/L (30-135) 03/30/18 11:04 Total Protein 7.0 G/DL (6.3-8.2) 03/27/18 06:00 Albumin 3.3 g/dL (3.5-5.0) L 03/27/18 06:00 Globulin 3.7 gm/dL (2.2-3.9) 03/27/18 06:00 Albumin/Globulin Ratio 0.9 (1.0-2.1) L 03/27/18 06:00 - Hospital Course Hospital Course: 67 year old female with history of HTN, HLD, and OA, s/p right TKR on 01/22/18 after failing conservative management presented with some drainage on the wound site of right knee along with swelling and redness. She was put on Levaquin but did not improve. On 03/21/18, patient underwent I&D and antibiotic bead implanted. ID was also called and advised to start patient on Daptomycin. Patient did well and was transferred to TCU for continuation of IV antibiotics and therapy as well. Patient now is for discharge and would continue IV antibiotics at home. She will follow with Dr Plummer in a week. Discharge Exam - Head Exam Head Exam: ATRAUMATIC, NORMAL INSPECTION, NORMOCEPHALIC - Eye Exam Eye Exam: Normal appearance - ENT Exam ENT Exam: Mucous Membranes Moist - Respiratory Exam Respiratory Exam: absent: Rales, Rhonchi, Wheezes, Respiratory Distress - Cardiovascular Exam Cardiovascular Exam: REGULAR RHYTHM, +S1, +S2 - GI/Abdominal Exam GI & Abdominal Exam: Soft. absent: Tenderness - Rectal Exam Rectal Exam: Deferred - Neurological Exam Neurological exam: Alert, Oriented x3 - Psychiatric Exam Psychiatric exam: Normal Affect - Skin Skin Exam: Dry, Intact Discharge Plan - Discharge Medications Prescriptions: Aspirin [Ecotrin] 162 mg PO DAILY #28 tabec oxyCODONE [oxyCODONE Immediate Release Tab] 10 mg PO Q6 PRN #20 tab PRN Reason: Pain, Moderate (4-7) traMADol [Ultram] 50 mg PO Q6 PRN #20 tab PRN Reason: Pain, Moderate (4-7) - Follow Up Plan Condition: GOOD Disposition: HOME/ ROUTINE Referrals: Len Plummer III, MD [Primary Care Provider] -
--- NOTE | 2018-03-31 13:11 | CP.PCM.PN ---
Subjective - Date & Time of Evaluation Date of Evaluation: 03/31/18 Time of Evaluation: 13:05 - Subjective Subjective: S- ot comfortable- doing quite well encounter in prescence of her daughter Objective - Vital Signs/Intake and Output Vital Signs (last 24 hours): Temp Pulse Resp BP Pulse Ox 97.8 F 72 20 134/70 99 03/31/18 08:04 03/31/18 09:38 03/31/18 08:04 03/31/18 09:38 03/31/18 08:04 - Medications Medications: Current Medications Acetaminophen (Tylenol 325mg Tab) 975 mg PO Q8 [facility] Last Admin: 03/31/18 09:43 Dose: 975 mg Allopurinol (Zyloprim) 100 mg PO DAILY [facility] Last Admin: 03/31/18 09:41 Dose: 100 mg Amlodipine Besylate (Norvasc) 5 mg PO DAILY [facility] Last Admin: 03/31/18 09:38 Dose: 5 mg Atorvastatin Calcium (Lipitor) 20 mg PO DAILY@2200 [facility] Last Admin: 03/30/18 21:44 Dose: 20 mg Carvedilol (Coreg) 6.25 mg PO BID [facility] Last Admin: 03/31/18 09:36 Dose: 6.25 mg Cholecalciferol (Vitamin D) 2,000 intlu PO DAILY [facility] Last Admin: 03/31/18 09:38 Dose: 2,000 intlu Enoxaparin Sodium (Lovenox) 40 mg SC DAILY [facility] PRN Reason: Protocol Last Admin: 03/31/18 09:40 Dose: 40 mg Ferrous Sulfate (Feosol) 325 mg PO BID [facility] Last Admin: 03/31/18 09:37 Dose: 325 mg Folic Acid (Folic Acid) 1 mg PO DAILY [facility] Last Admin: 03/31/18 09:38 Dose: 1 mg Hydrochlorothiazide (Microzide) 12.5 mg PO DAILY [facility] Last Admin: 03/31/18 09:38 Dose: 12.5 mg Losartan Potassium (Cozaar) 100 mg PO DAILY [facility] Last Admin: 03/31/18 09:38 Dose: 100 mg Multivitamins/Minerals (Therapeutic-M Tab) 1 tab PO DAILY [facility] Last Admin: 03/31/18 09:36 Dose: 1 tab Senna/Docusate Sodium (Senokot S 50 Mg-8.6 Mg) 2 tab PO HS [facility] Last Admin: 03/30/18 21:44 Dose: 2 tab Tramadol HCl (Ultram) 50 mg PO Q6 PRN PRN Reason: Pain, moderate (4-7) Last Admin: 03/31/18 04:54 Dose: 50 mg - Labs Labs: 03/27/18 06:00 03/27/18 06:00 - Additional Findings Additional findings: dressing dry and intact orthopedically stable [place] functional'dressing dry and intact orthopedically stabl;e Assessment and Plan - Assessment and Plan (Free Text) Assessment: A- s/p superficial sepsis L knee P- orthopedically stable cvontinue provena wound vac continue iv abios d/c on ASA 81 mg po no evidence fort thromboembolic disease
== END 2018-03-31 16:06 | disposition home health service (06) | DRG 559 ==
LOC: H.TCU 16:51
PROVIDERS: ADMIT Internal Medicine; ATTEND Internal Medicine
DX: Z47.1 Aftercare following joint replacement surgery (principal); M00.9 Pyogenic arthritis, unspecified; J18.9 Pneumonia, unspecified organism; J86.9 Pyothorax without fistula; D62 Acute posthemorrhagic anemia; N17.9 Acute kidney failure, unspecified; Z96.651 Presence of right artificial knee joint; E03.9 Hypothyroidism, unspecified; E78.5 Hyperlipidemia, unspecified; I10 Essential (primary) hypertension; I87.2 Venous insufficiency (chronic) (peripheral); M17.11 Unilateral primary osteoarthritis, right knee; Z90.49 Acquired absence of other specified parts of digestive tract

== ENCOUNTER 2018-04-18 17:38 | Inpatient (IN) | payer MEDICARE, OTHER ==
[2018-04-18 17:38] VITALS: BMI 37.3
--- NOTE | 2018-04-18 17:49 | CP.PCM.CON ---
History of Present Illness - History of Present Illness History of Present Illness: Orthopedic Consult: Dr. Plummer Patient is a 67 y/o female with PMH of HTN, hypercholesterolemia presents due to persistent wound drainage of right TKA surgical wound. Patient had successful primary TKA performed on 01/22/18, transferred to TCU and discharged home stable. On 03/24/18, she underwent R knee I&D, placement of antibiotic beads and wound VAC placement due to wound drainage. The drainage has persisted since her procedure prompting her visit to the ER today. She has no complaints of pain or signs of deep infection. Her daughter and son present with her today, acting as her inspector type. She is able to ambulate with the use of a walker. She denies radiation of pain/numbness/tingling. She also denies CP/SOB/N/V/D/fever/VIVAR/dysuria/melena. Review of Systems - Review of Systems All systems: reviewed and no additional remarkable complaints except Review of Systems: as per HPI Past Patient History - Infectious Disease Hx of Infectious Diseases: None - Tetanus Immunizations Tetanus Immunization: Unknown - Past Medical History & Family History Past Medical History?: Yes Past Family History: Reviewed and not pertinent - Past Social History Smoking Status: Never Smoked Alcohol: None Drugs: Denies - CARDIAC Hx Cardiac Disorders: Yes Hx Hypertension: Yes - PULMONARY Hx Respiratory Disorders: No - NEUROLOGICAL Hx Neurological Disorder: No - HEENT Hx HEENT Problems: No - RENAL Hx Chronic Kidney Disease: No - ENDOCRINE/METABOLIC Hx Endocrine Disorders: No - HEMATOLOGICAL/ONCOLOGICAL Hx AIDS: No Hx Human Immunodeficiency Virus (HIV): No - INTEGUMENTARY Hx Dermatological Problems: No - MUSCULOSKELETAL/RHEUMATOLOGICAL Hx Falls: No - GASTROINTESTINAL Hx Gastrointestinal Disorders: No - GENITOURINARY/GYNECOLOGICAL Hx Genitourinary Disorders: No - PSYCHIATRIC Hx Substance Use: No - SURGICAL HISTORY Hx Surgeries: Yes Hx Appendectomy: Yes - ANESTHESIA Hx Anesthesia: Yes Hx Anesthesia Reactions: No Meds Allergies/Adverse Reactions: Allergies Allergy/AdvReac Type Severity Reaction Status Date / Time No Known Allergies Allergy Verified 04/18/18 18:02 - Medications Medications: as per HPI Physical Exam - Constitutional Appears: Well, No Acute Distress - Head Exam Head Exam: ATRAUMATIC, NORMOCEPHALIC - Eye Exam Eye Exam: EOMI, Normal appearance, PERRL - ENT Exam ENT Exam: Mucous Membranes Moist - Respiratory Exam Respiratory Exam: Clear to Auscultation Bilateral, NORMAL BREATHING PATTERN - Cardiovascular Exam Cardiovascular Exam: +S1, +S2 - GI/Abdominal Exam GI & Abdominal Exam: Normal Bowel Sounds, Soft - Extremities Exam Additional comments: R knee: Knee immobilizer in place Prevena dressing intact with 70ml serous drainage in cannister no purulent drainage no pain with passive/active ROM, no signs of deep infection no erythema, no tenderness, mild edema sensation intact SP/DP/TN motor intact EHL/FHL/TA/G pedal pulses intact comps soft NT b/l - Neurological Exam Neurological exam: Alert, Oriented x3 - Psychiatric Exam Psychiatric exam: Normal Affect, Normal Mood - Skin Skin Exam: Normal Color, Warm Assessment & Plan (1) Wound dehiscence Assessment and Plan: -Admit to hospitalist -Dr. Mckeon cardiology consult -Dr. Bolivar ID consult -Plan for OR tomorrow for R knee I&D and placement of wound vac -NPO pMN -maintain knee immobilizer -above d/w Dr. Plummer in agreement Status: Acute
--- NOTE | 2018-04-18 18:44 | ED PDOC ---
Lower Extremity Pain/Injury Time Seen by Provider: 04/18/18 18:21 Chief Complaint (Nursing): Lower Extremity Problem/Injury Chief Complaint (Provider): Lower Extremity Problem/Injury History Per: Patient History/Exam Limitations: no limitations Onset/Duration Of Symptoms: Hrs Current Symptoms Are (Timing): Still Present Additional Complaint(s): 67 y/o female presents to the ED for evaluation of right knee pain, onset two weeks ago. Patient reports she recently had a surgery to the right knee, performed by Dr. Plummer. Patient states she has noticed some discharge from the wound and had a wound vac placed to the wound. Denies new trauma and fever. PMD: Non [facility] Provider Past Medical History Reviewed: Historical Data, Nursing Documentation, Vital Signs Vital Signs: Last Vital Signs Temp 98.8 F 04/18/18 17:59 Pulse 73 04/18/18 17:59 Resp 18 04/18/18 17:59 BP 152/88 H 04/18/18 17:59 Pulse Ox 99 04/18/18 17:59 - Medical History PMH: Arthritis (knees), HTN Denies: HIV, Chronic Kidney Disease - Surgical History Surgical History: Appendectomy - Family History Family History: States: Unknown Family Hx - Social History Alcohol: None Drugs: Denies - Home Medications Home Medications: Ambulatory Orders Medication Instructions Recorded Carvedilol [Coreg] 6.25 mg PO BID #60 tab 02/08/18 Cholecalciferol (Vitamin D3) 2,000 unit PO DAILY #30 capsule 02/08/18 [Vitamin D3] amLODIPine [Norvasc] 5 mg PO DAILY #30 tab 02/08/18 Allopurinol [Zyloprim] 100 mg PO DAILY tab 03/23/18 Daptomycin 500 mg IV Q48H #12 vial 03/23/18 Ferrous Sulfate [Feosol] 325 mg PO BID tab 03/23/18 Folic Acid 1 mg PO DAILY tab 03/23/18 Multimineral/Multivitamin 1 tab PO DAILY tab 03/23/18 [Therapeutic-M Tab] traMADol [Ultram] 50 mg PO Q6 PRN #20 tab 03/31/18 Aspirin [Ecotrin] 81 mg PO Q12 04/18/18 Docusate Sodium/Sennosides A 1 tab PO HS 04/18/18 [Senokot S 50 MG-8.6 MG] Losartan/Hydrochlorothiazide 1 tab PO DAILY 04/18/18 [Hyzaar 100-12.5 Tablet] Pravastatin Sodium [Pravachol] 20 mg PO HS 04/18/18 - Allergies Allergies/Adverse Reactions: Allergies Allergy/AdvReac Type Severity Reaction Status Date / Time No Known Allergies Allergy Verified 04/18/18 18:02 Review of Systems ROS Statement: Except As Marked, All Systems Reviewed And Found Negative Musculoskeletal: Positive for: Leg Pain (RIGHT KNEE) Physical Exam - Reviewed Nursing Documentation Reviewed: Yes Vital Signs Reviewed: Yes - Physical Exam Appears: Positive for: No Acute Distress (tired) Head Exam: Positive for: ATRAUMATIC, NORMOCEPHALIC Skin: Positive for: Warm, Dry Eye Exam: Positive for: EOMI, PERRL Neck: Positive for: Painless ROM, Supple Cardiovascular/Chest: Positive for: Regular Rate, Rhythm. Negative for: Murmur Respiratory: Positive for: Normal Breath Sounds. Negative for: Respiratory Distress Gastrointestinal/Abdominal: Positive for: Soft. Negative for: Tenderness Extremity: Positive for: Swelling (1+ pitting edema to the left leg), Other ( Right lower extremity in knee immobilizer with vac in place. Rest of exam observed by Ortho) Lymphatic: Negative for: Adenopathy Neurologic/Psych: Positive for: Alert. Negative for: Motor/Sensory Deficits - Laboratory Results Result Diagrams: 04/20/18 05:30 04/20/18 05:30 - ECG O2 Sat by Pulse Oximetry: 99 (RA) Pulse Ox Interpretation: Normal Medical Decision Making Medical Decision Making: Time: 1821 Impression: Right Knee Cellulitis Plan: -- EKG -- CMP -- Lact Acid, -- Orthopedic Consult -- CBC with differentials -- PTT -- Prothrombin Time -- CXR Portable -- Blood Culture -- Urine Culture -- IV Insertion -- Call Orthopedic Consult -- Patient evaluated by Ortho PA in the ER -- Patient to be hospitalized for further management. Discussed with hospitalist , Dr. Victoria. Scribe Attestation: Documented by Nasra Okeefe acting as a scribe for Bertha Lindo MD. Provider Scribe Attestation: All medical record entries made by the Scribe were at my direction and personally dictated by me. I have reviewed the chart and agree that the record accurately reflects my personal performance of the history, physical exam, medical decision making, and the department course for this patient. I have also personally directed, reviewed, and agree with the discharge instructions and disposition. Disposition - Clinical Impression Clinical Impression: Increased wound drainage, Status post total knee replacement, right - Disposition Disposition Time: 19:00 Condition: FAIR - Pt Status Changed To: Hospital Disposition Of: Inpatient - Admit Certification Admit to Inpatient:: After my assessment, the patient will require hospitalization for at least two midnights. This is because of the severity of symptoms shown, intensity of services needed, and/or the medical risk in this patient being treated as an outpatient. - POA Present On Arrival: Falls Or Trauma, Surgical Site Infection
[2018-04-18 19:26] LABS: BASO # 0.1 K/uL (0.0-0.2); BASO % 0.8 % (0.0-2.0); EOS # 0.2 K/uL (0.0-0.7); HEMOGLOBIN 10.6 g/dL (12.0-16.0); LYMPH # 2.2 K/uL (1.0-4.3); LYMPH % 26.8 % (20.0-40.0); MEAN CELL VOLUME 88.2 fl (81.0-99.0); MEAN CORPUSCULAR HEMOGLOBIN 29.6 pg (27.0-31.0); MEAN CORPUSCULAR HGB CONC 33.5 g/dL (33.0-37.0); MEAN PLATELET VOLUME 8.1 fl (7.2-11.7); MONO # 0.8 K/uL (0.0-0.8); MONO % 9.4 % (0.0-10.0); NEUT # 4.9 K/uL (1.8-7.0); NRBC % 0.1 % (0.0-0.0); RBC 3.59 Mil/uL (3.80-5.20); RED CELL DISTRIBUTION WIDTH 15.1 % (11.5-14.5); WHITE BLOOD COUNT 8.2 K/uL (4.8-10.8)
[2018-04-18 19:32] LABS: INR 1.1; PROTHROMBIN TIME 12.2 Seconds (9.8-13.1)
[2018-04-18 19:33] LABS: GRANULAR CAST 9 /lpf (0-1); RENAL EPITHELIAL 3 /hpf (0-3); SQUAMOUS EPITHIAL 1 /hpf (0-5); URINE BACTERIA FEW (<OCC); URINE BILIRUBIN NEGATIVE (NEGATIVE); URINE BLOOD MODERATE (NEGATIVE); URINE CLARITY CLEAR (Clear); URINE COLOR YELLOW (YELLOW); URINE GLUCOSE (UA) NEG (Normal); URINE LEUKOCYTE ESTERASE TRACE Leu/uL (Negative); URINE PROTEIN 100 mg/dL (NEGATIVE); URINE UROBILINOGEN 0.2-1.0 mg/dL (0.2-1.0)
[2018-04-18 19:46] LABS: ALB/GLOB RATIO 0.9 (1.0-2.1); CALCIUM 9.7 mg/dL (8.4-10.2)
--- NOTE | 2018-04-18 19:47 | CP.PCM.HP ---
History of Present Illness - History of Present Illness History of Present Illness: CC: persistent wound drainage HPI: 67 y/o woman w/ pmh of HTN, HLD, Osteoarthritis presents to ED for persistent wound drainage of surgical wound. Patient is s/p right TKR 2017 and had previous right knee I&D done 03/21/2018. Patient had wound vac placed and started on antibiotics. Patient seen by Dr Plummer in clinic 1 day ago and in ED today. Patient denies pain, fever, nausea, vomiting, diarrhea, dysuria, headaches, chest pain, SOB, numbness, or tingling. ED course: vitals: 98.8F, 73 beats/min, 152/88 mm Hg, resp 18, O2 99% room air CMP: pending coags: PT 12.2, INR 1.1, aPTT 30.0 CXR: (preliminary) no active disease, similar study compared to previous CXR orthopaedic consult, Dr. Plummer, recommendations appreciated cardiology consult, Dr. Mckeon ID consult, Dr. Bolivar PMD: Dr. Dario Obrien PMH: HTN, HLD, Osteoarthritis meds: see med list PSH: right TKR 01/22/2018, appendectomy in childhood Fam: non-contributory SOC: denies smoking, alcohol, and drugs ROS: 12 points assessed and negative unless otherwise reported in HPI Present on Admission - Present on Admission Any Indicators Present on Admission: No History of DVT/PE: No History of Uncontrolled Diabetes: No Urinary Catheter: No Decubitus Ulcer Present: No Review of Systems - Review of Systems All systems: reviewed and no additional remarkable complaints except - Constitutional Constitutional: absent: Chills, Fever, Headache - EENT Eyes: absent: Change in Vision - Cardiovascular Cardiovascular: absent: Chest Pain - Respiratory Respiratory: absent: Cough, Dyspnea - Gastrointestinal Gastrointestinal: absent: Abdominal Pain, Diarrhea, Nausea, Vomiting - Genitourinary Genitourinary: absent: Dysuria - Reproductive: Female Reproductive:Female: Post Menopausal - Menstruation Menstruation: Post Menopausal - Musculoskeletal Musculoskeletal: As Per HPI - Integumentary Integumentary: absent: Rash Past Patient History - Infectious Disease Hx of Infectious Diseases: None - Tetanus Immunizations Tetanus Immunization: Unknown - Past Medical History & Family History Past Medical History?: Yes Past Family History: Reviewed and not pertinent - Past Social History Alcohol: None Drugs: Denies - CARDIAC Hx Hypertension: Yes - PULMONARY Hx Respiratory Disorders: No - NEUROLOGICAL Hx Neurological Disorder: No - HEENT Hx HEENT Problems: No - RENAL Hx Chronic Kidney Disease: No - ENDOCRINE/METABOLIC Hx Endocrine Disorders: No - HEMATOLOGICAL/ONCOLOGICAL Hx Human Immunodeficiency Virus (HIV): No - INTEGUMENTARY Hx Dermatological Problems: No - MUSCULOSKELETAL/RHEUMATOLOGICAL Hx Arthritis: Yes (knees) - GASTROINTESTINAL Hx Gastrointestinal Disorders: No - GENITOURINARY/GYNECOLOGICAL Hx Genitourinary Disorders: No - PSYCHIATRIC Hx Substance Use: No - SURGICAL HISTORY Hx Appendectomy: Yes - ANESTHESIA Hx Anesthesia: Yes Hx Anesthesia Reactions: No Meds Allergies/Adverse Reactions: Allergies Allergy/AdvReac Type Severity Reaction Status Date / Time No Known Allergies Allergy Verified 04/18/18 18:02 Physical Exam - Constitutional Appears: Non-toxic, No Acute Distress - Head Exam Head Exam: ATRAUMATIC, NORMAL INSPECTION, NORMOCEPHALIC - Eye Exam Eye Exam: Normal appearance - ENT Exam ENT Exam: Mucous Membranes Moist - Neck Exam Neck exam: Positive for: Full Rom. Negative for: Tenderness - Respiratory Exam Respiratory Exam: Clear to Auscultation Bilateral. absent: Decreased Breath Sounds, Rales, Rhonchi, Wheezes, Respiratory Distress - Cardiovascular Exam Cardiovascular Exam: REGULAR RHYTHM, RRR, +S1, +S2. absent: Tachycardia - GI/Abdominal Exam GI & Abdominal Exam: Normal Bowel Sounds, Soft. absent: Distended, Tenderness - Extremities Exam Extremities exam: Positive for: pedal edema. Negative for: calf tenderness, tenderness Additional comments: right knee immobilizer in place w/ wound vac draining non-purulent serrosanguinous fluid; left leg w/ compression stocking, non-tender - Neurological Exam Neurological exam: Alert, Oriented x3 - Skin Skin Exam: Dry, Warm Results - Vital Signs Recent Vital Signs: Last Vital Signs Temp 98.8 F 04/18/18 17:59 Pulse 73 04/18/18 17:59 Resp 18 04/18/18 17:59 BP 152/88 H 04/18/18 17:59 Pulse Ox 99 04/18/18 18:51 - Labs Result Diagrams: 04/18/18 19:13 04/18/18 19:13 Labs: Laboratory Results - last 24 hr 04/18/18 19:13 PT 12.2 INR 1.1 Assessment & Plan (1) Increased wound drainage Status: Acute (2) Status post total knee replacement, right Status: Acute (3) HLD (hyperlipidemia) Status: Chronic (4) HTN (hypertension) Status: Chronic - Assessment and Plan (Free Text) Assessment: 67 y/o woman w/ pmh of HTN, HLD, Osteoarthritis presents to ED for persistent wound drainage of surgical wound Plan: Right knee wound drainage - vital signs stable - CMP: pending - coags: PT 12.2, INR 1.1, aPTT 30.0 - CXR: (preliminary) no active disease, similar study compared to previous CXR 01/24/2018 - orthopaedic consult, Dr. Plummer, recommendations appreciated - cardiology consult, Dr. Mckeon - ID consult, Dr. Bolivar - for OR tomorrow, right knee I&D and wound vac placement - NPO past midnight - f/u CBC, BMP - tylenol for fever prn - percocet for moderate pain - zofran for nausea prn - monitor for acute changes - c/w daptomycin 500 mg IV Q48h - admit to MedSurg HTN - mildly elevated BP - c/w norvasc, losartan/HCTZ, carvedilol, ASA HLD - c/w pravastatin Prophylactic measures - DVT: hold anticoagulation for procedure tomorrow
[2018-04-18] MEDS ORDERED: DAPTOmycin 500 mg Inj (Cubicin) IV SCH (20:00)
[2018-04-18] MEDS: DAPTOmycin 500 MG in Sodium Chloride 0.9% 100 ML IV SCH (22:55)
[2018-04-18] MEDS ORDERED: Pravastatin Sodium 20 MG TAB PO ONE (23:21)
[2018-04-18] MEDS: Docusate-Senna 50 mg-8.6 mg Tab PO SCH (23:43)
[2018-04-18] MEDS: Pravastatin Sodium 20 MG TAB PO SCH (23:43)
[2018-04-19 05:54] LABS: HEMOGLOBIN 9.3 g/dL (12.0-16.0); MEAN CELL VOLUME 86.2 fl (81.0-99.0); MEAN CORPUSCULAR HEMOGLOBIN 29.4 pg (27.0-31.0); MEAN CORPUSCULAR HGB CONC 34.1 g/dL (33.0-37.0); RBC 3.15 Mil/uL (3.80-5.20); RED CELL DISTRIBUTION WIDTH 14.9 % (11.5-14.5); WHITE BLOOD COUNT 6.4 K/uL (4.8-10.8)
[2018-04-19 05:59] LABS: BLOOD UREA NITROGEN 23 mg/dl (7-17); CALCIUM 9.4 mg/dL (8.4-10.2); GFR NON-AFRICAN AMERICAN 55
--- NOTE | 2018-04-19 07:54 | CARD ---
APPROVED REPORT Date of service: 04/18/2018 EKG Measurement Heart [id number] <Conclusion> Normal sinus rhythm Normal ECG
[2018-04-19] MEDS: Multivitamin With Minerals Tab PO SCH (08:20)
[2018-04-19] MEDS: Cholecalciferol 1,000 INTLU TAB PO SCH (08:20)
--- NOTE | 2018-04-19 08:40 | CP.PCM.PN ---
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 Pt had no acute distress overnight. Pt able to sleep comfortable, and have no complain. She denies chest pain SOB, abd pain, diarrhea, constipation. Pt was able to void with no difficulty or pain. Pt have no concern. Objective - Vital Signs/Intake and Output Vital Signs (last 24 hours): Temp Pulse Resp BP Pulse Ox 97.8 F 70 20 145/78 98 04/19/18 08:04 04/19/18 08:04 04/19/18 08:04 04/19/18 08:04 04/19/18 08:04 - Medications Medications: Current Medications Acetaminophen (Tylenol 325mg Tab) 650 mg PO Q4 PRN PRN Reason: Fever 101 degrees fahrenheit Allopurinol (Zyloprim) 100 mg PO DAILY [facility] Last Admin: 04/19/18 08:20 Dose: Not Given Amlodipine Besylate (Norvasc) 5 mg PO DAILY [facility] Last Admin: 04/19/18 08:20 Dose: Not Given Aspirin (Ecotrin) 81 mg PO Q12 [facility] Last Admin: 04/19/18 08:19 Dose: Not Given Carvedilol (Coreg) 6.25 mg PO BID [facility] Cholecalciferol (Vitamin D) 2,000 intlu PO DAILY [facility] Last Admin: 04/19/18 08:20 Dose: Not Given Ferrous Sulfate (Feosol) 325 mg PO BID [facility] Last Admin: 04/19/18 08:19 Dose: Not Given Folic Acid (Folic Acid) 1 mg PO DAILY [facility] Last Admin: 04/19/18 08:19 Dose: Not Given Hydrochlorothiazide (Microzide) 12.5 mg PO DAILY [facility] Last Admin: 04/19/18 08:19 Dose: Not Given Daptomycin 500 mg/ Sodium (Chloride) 100 mls @ 100 mls/hr IV Q48H [facility] Stop: 04/23/18 21:01 Last Admin: 04/18/18 22:55 Dose: 100 mls/hr Losartan Potassium (Cozaar) 100 mg PO DAILY [facility] Last Admin: 04/19/18 08:19 Dose: Not Given Multivitamins/Minerals (Therapeutic-M Tab) 1 tab PO DAILY [facility] Last Admin: 04/19/18 08:20 Dose: Not Given Ondansetron HCl (Zofran Inj) 4 mg IVP ONCE PRN PRN Reason: Nausea/Vomiting Oxycodone/Acetaminophen (Percocet 5/325 Mg Tab) 1 tab PO Q4 PRN PRN Reason: Pain, moderate (4-7) Stop: 04/21/18 18:22 Pravastatin Sodium (Pravachol) 20 mg PO [facility] Last Admin: 04/18/18 23:43 Dose: 20 mg Senna/Docusate Sodium (Senokot S 50 Mg-8.6 Mg) 1 tab PO [facility] Last Admin: 04/18/18 23:43 Dose: 1 tab - Labs Labs: 04/19/18 05:39 04/19/18 05:39 PT 12.2 Seconds (9.8-13.1) 04/18/18 19:13 INR 1.1 04/18/18 19:13 APTT 30.0 Seconds (25.6-37.1) 04/18/18 19:13 - Constitutional Appears: Well, Non-toxic, No Acute Distress - Head Exam Head Exam: ATRAUMATIC, NORMAL INSPECTION, NORMOCEPHALIC - Eye Exam Eye Exam: EOMI, Normal appearance, PERRL Pupil Exam: NORMAL ACCOMODATION, PERRL - ENT Exam ENT Exam: Mucous Membranes Moist, Normal Exam - Neck Exam Neck Exam: Full ROM, Normal Inspection - Respiratory Exam Respiratory Exam: Clear to Ausculation Bilateral, NORMAL BREATHING PATTERN - Cardiovascular Exam Cardiovascular Exam: REGULAR RHYTHM, +S1, +S2 - GI/Abdominal Exam GI & Abdominal Exam: Soft, Normal Bowel Sounds - Extremities Exam Extremities Exam: Full ROM, Normal Capillary Refill, Normal Inspection. absent : Calf Tenderness Additional comments: RIGHT leg wrapped with PAULINO wrap and VAC connected - Back Exam Back Exam: NORMAL INSPECTION. absent: CVA tenderness (L), CVA tenderness (R) - Neurological Exam Neurological Exam: Alert, Awake, Oriented x3 - Psychiatric Exam Psychiatric exam: Normal Affect, Normal Mood - Skin Skin Exam: Dry, Intact, Normal Color, Warm Assessment and Plan - Assessment and Plan (Free Text) Assessment: 67 yo female with PMH of HTN, HLD, Osteoarthritis present to ED for Persistent wound drainage of surgical wound Right knee wound drainage Vital stable CMP: Vital stable except for bp if 154/77 CBC WNL except for mild anemia ( Hgb 9.3 Hct 27.1 Coags: PT 12.2, INR 1.1, aPTT 30.0 CXR: No acute disease NPO tylenol for fever prn percocet for moderate pain Zofran for nausea prn Monitor for acute changes Continue with daptomycin 500 mg IV Q48h F/U ortho F/U cardiology consult F/U ID consult, Dr. Bolivar F/U blood culture and Urine culture OR Today for I&D Anemia Order Ferrous Sulfate Colace for constipation HTN Mild elevated BP Contiunue with home medication - norvasc, losartan/HCTZ, carvedilol, ASA HLD Continue with pravastatin Prophylactic measures DVT: hold anticoagulation for procedure
[2018-04-19] MEDS ORDERED: Patient's Own Med (Losartan/Hydrochlorothiazide [Hyzaar 100-12.5 Tablet] 1 TAB) PO SCH (09:00)
--- NOTE | 2018-04-19 10:58 | CP.PCM.CON ---
History of Present Illness - History of Present Illness History of Present Illness: THE PATIENT IS A 67 YEAR OLD FEMALE WITH A HISTORY OF A RIGHT TKR ON 01/22/18 FOLLOWED BY AN I AND D FOR A WOUND INFECTION ON 03/21/18 WITH ANTIBIOTICS AND A WOUND VAC PLACEMENT. SHE HAS WOUND DRAINAGE AGAIN AND WAS ADMITTED YESTERDAY AND WILL HAVE SURGERY AGAIN TODAY. CARDIOLOGY WAS ASKED TO SEE HER AGAIN FOR CLEARANCE AND TO FOLLOW HER. SHE HAS A HISTORY OF HYPERTENSION AND HYPERLIPIDEMIA. SHE DENIES CAD OR CHEST PAIN. Past Patient History - Infectious Disease Hx of Infectious Diseases: None - Tetanus Immunizations Tetanus Immunization: Unknown - Past Medical History & Family History Past Medical History?: Yes - Past Social History Smoking Status: Never Smoked - CARDIAC Hx Hypertension: Yes - PULMONARY Hx Respiratory Disorders: No - NEUROLOGICAL Hx Neurological Disorder: No - HEENT Hx HEENT Problems: No - RENAL Hx Chronic Kidney Disease: No - ENDOCRINE/METABOLIC Hx Endocrine Disorders: No - HEMATOLOGICAL/ONCOLOGICAL Hx Human Immunodeficiency Virus (HIV): No - INTEGUMENTARY Hx Dermatological Problems: No - MUSCULOSKELETAL/RHEUMATOLOGICAL Hx Arthritis: Yes (bilateral knees) Hx Falls: No - GASTROINTESTINAL Hx Gastrointestinal Disorders: No - GENITOURINARY/GYNECOLOGICAL Hx Genitourinary Disorders: No - PSYCHIATRIC Hx Substance Use: No - SURGICAL HISTORY Hx Appendectomy: Yes Hx Orthopedic Surgery: Yes (right TKR) - ANESTHESIA Hx Anesthesia: Yes Hx Anesthesia Reactions: No Meds Allergies/Adverse Reactions: Allergies Allergy/AdvReac Type Severity Reaction Status Date / Time No Known Allergies Allergy Verified 04/18/18 18:02 - Medications Medications: Current Medications Acetaminophen (Tylenol 325mg Tab) 650 mg PO Q4 PRN PRN Reason: Fever 101 degrees fahrenheit Allopurinol (Zyloprim) 100 mg PO DAILY [facility] Last Admin: 04/19/18 08:20 Dose: Not Given Amlodipine Besylate (Norvasc) 5 mg PO DAILY [facility] Last Admin: 04/19/18 08:20 Dose: Not Given Aspirin (Ecotrin) 81 mg PO Q12 [facility] Last Admin: 04/19/18 08:19 Dose: Not Given Carvedilol (Coreg) 6.25 mg PO BID [facility] Last Admin: 04/19/18 08:45 Dose: 6.25 mg Cholecalciferol (Vitamin D) 2,000 intlu PO DAILY [facility] Last Admin: 04/19/18 08:20 Dose: Not Given Ferrous Sulfate (Feosol) 325 mg PO BID [facility] Last Admin: 04/19/18 08:19 Dose: Not Given Folic Acid (Folic Acid) 1 mg PO DAILY [facility] Last Admin: 04/19/18 08:19 Dose: Not Given Hydrochlorothiazide (Microzide) 12.5 mg PO DAILY [facility] Last Admin: 04/19/18 08:19 Dose: Not Given Daptomycin 500 mg/ Sodium (Chloride) 100 mls @ 100 mls/hr IV Q48H [facility] Stop: 04/23/18 21:01 Last Admin: 04/18/18 22:55 Dose: 100 mls/hr Losartan Potassium (Cozaar) 100 mg PO DAILY [facility] Last Admin: 04/19/18 08:19 Dose: Not Given Multivitamins/Minerals (Therapeutic-M Tab) 1 tab PO DAILY [facility] Last Admin: 04/19/18 08:20 Dose: Not Given Ondansetron HCl (Zofran Inj) 4 mg IVP ONCE PRN PRN Reason: Nausea/Vomiting Oxycodone/Acetaminophen (Percocet 5/325 Mg Tab) 1 tab PO Q4 PRN PRN Reason: Pain, moderate (4-7) Stop: 04/21/18 18:22 Pravastatin Sodium (Pravachol) 20 mg PO [facility] Last Admin: 04/18/18 23:43 Dose: 20 mg Senna/Docusate Sodium (Senokot S 50 Mg-8.6 Mg) 1 tab PO HS [facility] Last Admin: 04/18/18 23:43 Dose: 1 tab Physical Exam - Respiratory Exam Respiratory Exam: Clear to Auscultation Bilateral - Cardiovascular Exam Cardiovascular Exam: REGULAR RHYTHM, +S1, +S2 - Extremities Exam Additional comments: RT KNEE WITH WOUND DRESSINGS AND PAULINO BANDAGE LEFT LE WITHOUT EDEMA - Additional Findings Additional findings: EKG NSR H/H 05/30 K+ 4.2 Results - Vital Signs Recent Vital Signs: Last Vital Signs Temp 97.8 F 04/19/18 08:04 Pulse 70 04/19/18 08:45 Resp 20 04/19/18 08:04 BP 145/78 04/19/18 08:45 Pulse Ox 98 04/19/18 08:04 - Labs Result Diagrams: 04/19/18 05:39 04/19/18 05:39 Labs: Laboratory Results - last 24 hr 04/18/18 04/18/18 04/18/18 19:13 19:13 19:13 WBC 8.2 D RBC 3.59 L Hgb 10.6 L D Hct 31.6 L MCV 88.2 MCH 29.6 MCHC 33.5 RDW 15.1 H Plt Count 313 MPV 8.1 Neut % (Auto) 60.0 Lymph % (Auto) 26.8 [place] % (Auto) 9.4 Eos % (Auto) 3.0 Baso % (Auto) 0.8 Neut # (Auto) 4.9 Lymph # (Auto) 2.2 [place] # (Auto) 0.8 Eos # (Auto) 0.2 Baso # (Auto) 0.1 PT INR APTT Sodium 139 Potassium 4.5 Chloride 106 Carbon Dioxide 23 Anion Gap 15 BUN 25 H Creatinine 1.1 Est GFR ( Amer) 60 Est GFR (Non-Af Amer) 49 Random Glucose 106 H Lactic Acid 1.3 Calcium 9.7 Total Bilirubin 0.6 AST 24 ALT 19 Alkaline Phosphatase 64 Total Protein 8.3 H Albumin 4.0 Globulin 4.3 H Albumin/Globulin Ratio 0.9 L Urine Color Urine Clarity Urine pH Ur Specific [place] Urine Protein Urine Glucose (UA) Urine Ketones Urine Blood Urine Nitrate Urine Bilirubin Urine Urobilinogen Ur Leukocyte Esterase Urine RBC (Auto) Urine Microscopic WBC Ur Squamous Epith Cells Ur Renal Epithelial Cell Urine Bacteria Granular Casts (Auto) 04/18/18 04/18/18 04/19/18 19:13 19:13 05:39 WBC 6.4 RBC 3.15 L Hgb 9.3 L Hct 27.1 L MCV 86.2 D MCH 29.4 MCHC 34.1 RDW 14.9 H Plt Count 257 MPV Neut % (Auto) Lymph % (Auto) [place] % (Auto) Eos % (Auto) Baso % (Auto) Neut # (Auto) Lymph # (Auto) [place] # (Auto) Eos # (Auto) Baso # (Auto) PT 12.2 INR 1.1 APTT 30.0 Sodium Potassium Chloride Carbon Dioxide Anion Gap BUN Creatinine Est GFR ( Amer) Est GFR (Non-Af Amer) Random Glucose Lactic Acid Calcium Total Bilirubin AST ALT Alkaline Phosphatase Total Protein Albumin Globulin Albumin/Globulin Ratio Urine Color Yellow Urine Clarity Clear Urine pH 6.0 Ur Specific [place] 1.009 Urine Protein 100 Urine Glucose (UA) Neg Urine Ketones Negative Urine Blood Moderate Urine Nitrate Negative Urine Bilirubin Negative Urine Urobilinogen 0.2-1.0 Ur Leukocyte Esterase Trace Urine RBC (Auto) 10 H Urine Microscopic WBC < 1 Ur Squamous Epith Cells 1 Ur Renal Epithelial Cell 3 Urine Bacteria Few H Granular Casts (Auto) 9 04/19/18 05:39 WBC RBC Hgb Hct MCV MCH MCHC RDW Plt Count MPV Neut % (Auto) Lymph % (Auto) [place] % (Auto) Eos % (Auto) Baso % (Auto) Neut # (Auto) Lymph # (Auto) [place] # (Auto) Eos # (Auto) Baso # (Auto) PT INR APTT Sodium 141 Potassium 4.2 Chloride 108 H Carbon Dioxide 24 Anion Gap 13 BUN 23 H Creatinine 1.0 Est GFR ( Amer) > 60 Est GFR (Non-Af Amer) 55 Random Glucose 103 Lactic Acid Calcium 9.4 Total Bilirubin AST ALT Alkaline Phosphatase Total Protein Albumin Globulin Albumin/Globulin Ratio Urine Color Urine Clarity Urine pH Ur Specific [place] Urine Protein Urine Glucose (UA) Urine Ketones Urine Blood Urine Nitrate Urine Bilirubin Urine Urobilinogen Ur Leukocyte Esterase Urine RBC (Auto) Urine Microscopic WBC Ur Squamous Epith Cells Ur Renal Epithelial Cell Urine Bacteria Granular Casts (Auto) Assessment & Plan - Assessment and Plan (Free Text) Assessment: S/P RIGHT TKR WITH DRAINAGE HYPERTENSION HYPERLIPIDEMIA Plan: THE PATIENT IS ON CARVEDILOL, LOSARTAN, AMLODIPINE, HCTZ, PRAVACHOL AND ANTIBIOTICS SHE IS CLEARED FOR SURGERY
--- NOTE | 2018-04-19 10:59 | RAD ---
Date of service: 04/18/2018 HISTORY: admission COMPARISON: 01/25/2018 FINDINGS: LUNGS: No active pulmonary disease. PLEURA: No significant pleural effusion identified, no pneumothorax apparent. CARDIOVASCULAR: Normal. OSSEOUS STRUCTURES: No significant abnormalities. VISUALIZED UPPER ABDOMEN: Normal. OTHER FINDINGS: None. IMPRESSION: No active disease.
[2018-04-19] MEDS ORDERED: Propofol 10 mg/ml Inj (20 ML) ONE (11:46)
[2018-04-19] MEDS ORDERED: Neostigmine 1:1000 (1 mg/ml) Inj ONE (11:47)
[2018-04-19] MEDS ORDERED: Rocuronium 10 mg/ml (5 ml) ONE (11:47)
[2018-04-19] MEDS ORDERED: Succinylcholine 200 mg/10 ml Inj IV ONE (11:47)
[2018-04-19] MEDS ORDERED: Lidocaine 4% (Laryng-O-Jet) Kit MM ONE (11:47)
[2018-04-19] MEDS ORDERED: Thrombin Topical 5,000 Int Units Spray Kit ONE (12:00)
[2018-04-19] MEDS ORDERED: Absorbable Gelatin Sponge Size 12-7 ONE (12:00)
[2018-04-19] MEDS ORDERED: ceFAZolin IV 1 gm in Dextrose 2 GM/100 ML BAG IVPB ONE (12:00)
[2018-04-19] MEDS ORDERED: Bacitracin Ointment 30 GM TUBE ONE (12:01)
[2018-04-19] MEDS ORDERED: Lactated Ringer's 1,000 ML IV ONE ×2 (12:55→14:10)
[2018-04-19] MEDS ORDERED: Desflurane Inhalation Anesthetic Liq (240 ml) ONE (13:20)
[2018-04-19] MEDS ORDERED: Dakin's Topical 0.25%-Half Strength (480 ml) TOP ONE (13:30)
[2018-04-19] MEDS ORDERED: ePHEDrine 50 mg/ml Inj ONE (13:49)
[2018-04-19] MEDS ORDERED: Sodium Chloride 0.9% 1,000 ML IV SCH (15:00)
[2018-04-19] MEDS ORDERED: Sodium Chloride 0.9% 1,000 ML IV ONE (15:00)
--- NOTE | 2018-04-19 15:00 | PCM.SURG1 ---
Surgeon's Initial Post Op Note - Surgeon's Notes Surgeon: Kavitha Senior Drupal Developer: EKTA Acevedo Type of Anesthesia: General Endo Anesthesia Administered By: DR Barry Champion/DR coelho Pre-Operative Diagnosis: wound dehiscienc e s/p R TKR. no clinical evidence for deep sepsis. foreign Bodies(deep sutures) Operative Findings: as above- wound dehisicience s/p successful TKR. no evidence for deep sepsis (clinical). aspiration - 1-Wbc's per hi power field Post-Operative Diagnosis: as above Operation Performed: application versiflow wound vac. irrigation/debridement R knee. remoival foreign bodies ( deep). aspiration Right knee- under anaesthesia. manipulation R knee under anaestheisa/. positioongf of fluoro/ interpeation of video Specimen/Specimens Removed: synvial fluid/sutures/skin subcutaneous tissue Estimated Blood Loss: EBL {In ML}: 15 Date of Surgery/Procedure: 04/19/18 Time of Surgery/Procedure: 13:45 (time in room 1255/anaetsheisa induction time 1255)
[2018-04-19 15:21] LABS: FLUID TYPE SYNOVIAL FLUID
[2018-04-19 15:24] LABS: SF GROSS APPEARANCE BLOODY (CLEAR); SYNOVIAL FLUID COMMENT LIGHT RED; SYNOVIAL FLUID MONO/MACROPHAGE 4 % (0-0)
--- NOTE | 2018-04-19 16:41 | RAD ---
Date of service: 04/19/2018 PROCEDURE: Intraoperative Fluoroscopy. HISTORY: RIGHT KNEE FINDINGS: Fluoroscopic assistance was provided for right TKA wound dehiscence. Please refer to the operative report from JACKIE Rodriguez. Total fluoroscopic time (continuous mode) utilized during the procedure 6.0 (seconds).
[2018-04-19] MEDS: Pravastatin Sodium 20 MG TAB PO SCH (22:07)
[2018-04-19] MEDS: Docusate-Senna 50 mg-8.6 mg Tab PO SCH (22:07)
[2018-04-19] MEDS: Oxycodone/Acetaminophen 5/325 mg Tab PO PRN (22:08)
[2018-04-20 06:34] LABS: HEMOGLOBIN 8.5 g/dL (12.0-16.0); MEAN CELL VOLUME 87.5 fl (81.0-99.0); MEAN CORPUSCULAR HEMOGLOBIN 29.6 pg (27.0-31.0); MEAN CORPUSCULAR HGB CONC 33.8 g/dL (33.0-37.0); RBC 2.87 Mil/uL (3.80-5.20); RED CELL DISTRIBUTION WIDTH 14.8 % (11.5-14.5); WHITE BLOOD COUNT 6.6 K/uL (4.8-10.8)
[2018-04-20 06:47] LABS: BLOOD UREA NITROGEN 20 mg/dl (7-17); CALCIUM 8.8 mg/dL (8.4-10.2); GFR NON-AFRICAN AMERICAN 55
[2018-04-20] MEDS: Multivitamin With Minerals Tab PO SCH (08:46)
[2018-04-20] MEDS: Cholecalciferol 1,000 INTLU TAB PO SCH (08:47)
--- NOTE | 2018-04-20 09:09 | CP.PCM.PN ---
<Brenden Escobar - Last Filed: 04/20/18 11:59> Subjective - Date & Time of Evaluation Date of Evaluation: 04/20/18 Time of Evaluation: 07:00 - Subjective Subjective: Pt is seen and examined at bedside. Pt acute event overnight. Pt state pain is controlled with medication. Pt denies any new changes since yesterday, she was able to pass urine and gas. Pt denies fever, chills, chest pain, sob, abd pain, dysuria or polyuria. Woundvac is attached to LEFT leg, some drain was noted, last drain was of 450ml Objective - Vital Signs/Intake and Output Vital Signs (last 24 hours): Temp Pulse Resp BP Pulse Ox 98.5 F 73 18 144/78 96 04/20/18 08:24 04/20/18 08:46 04/20/18 08:24 04/20/18 08:46 04/20/18 08:24 Intake and Output: 04/20/18 04/20/18 06:59 18:59 Intake Total 702 Output Total 450 Balance 252 - Medications Medications: Current Medications Acetaminophen (Tylenol 325mg Tab) 650 mg PO Q4 PRN PRN Reason: Fever 101 degrees fahrenheit Allopurinol (Zyloprim) 100 mg PO DAILY [facility] Last Admin: 04/20/18 08:47 Dose: 100 mg Amlodipine Besylate (Norvasc) 5 mg PO DAILY [facility] Last Admin: 04/20/18 08:47 Dose: 5 mg Aspirin (Ecotrin) 81 mg PO Q12 [facility] Last Admin: 04/20/18 08:47 Dose: 81 mg Carvedilol (Coreg) 6.25 mg PO BID [facility] Last Admin: 04/20/18 08:46 Dose: 6.25 mg Cholecalciferol (Vitamin D) 2,000 intlu PO DAILY [facility] Last Admin: 04/20/18 08:47 Dose: 2,000 intlu Ferrous Sulfate (Feosol) 325 mg PO BID [facility] Last Admin: 04/20/18 08:46 Dose: 325 mg Folic Acid (Folic Acid) 1 mg PO DAILY [facility] Last Admin: 04/20/18 08:47 Dose: 1 mg Hydrochlorothiazide (Microzide) 12.5 mg PO DAILY [facility] Last Admin: 04/20/18 08:48 Dose: 12.5 mg Daptomycin 500 mg/ Sodium (Chloride) 100 mls @ 100 mls/hr IV Q48H [facility] Stop: 04/23/18 21:01 Last Admin: 04/18/18 22:55 Dose: 100 mls/hr Losartan Potassium (Cozaar) 100 mg PO DAILY [facility] Last Admin: 04/20/18 08:47 Dose: 100 mg Multivitamins/Minerals (Therapeutic-M Tab) 1 tab PO DAILY [facility] Last Admin: 04/20/18 08:46 Dose: 1 tab Ondansetron HCl (Zofran Inj) 4 mg IVP ONCE PRN PRN Reason: Nausea/Vomiting Oxycodone/Acetaminophen (Percocet 5/325 Mg Tab) 1 tab PO Q4 PRN PRN Reason: Pain, moderate (4-7) Stop: 04/21/18 18:22 Last Admin: 04/19/18 22:08 Dose: 1 tab Pravastatin Sodium (Pravachol) 20 mg PO [facility] Last Admin: 04/19/18 22:07 Dose: 20 mg Senna/Docusate Sodium (Senokot S 50 Mg-8.6 Mg) 1 tab PO [facility] Last Admin: 04/19/18 22:07 Dose: 1 tab - Labs Labs: 04/20/18 05:30 04/20/18 05:30 PT 12.2 Seconds (9.8-13.1) 04/18/18 19:13 INR 1.1 04/18/18 19:13 APTT 30.0 Seconds (25.6-37.1) 04/18/18 19:13 - Constitutional Appears: Well, Non-toxic, No Acute Distress - Head Exam Head Exam: ATRAUMATIC, NORMAL INSPECTION, NORMOCEPHALIC - Eye Exam Eye Exam: EOMI, Normal appearance, PERRL Pupil Exam: NORMAL ACCOMODATION, PERRL - ENT Exam ENT Exam: Mucous Membranes Moist, Normal Exam - Neck Exam Neck Exam: Full ROM, Normal Inspection - Respiratory Exam Respiratory Exam: Clear to Ausculation Bilateral, NORMAL BREATHING PATTERN - Cardiovascular Exam Cardiovascular Exam: REGULAR RHYTHM, +S1, +S2 - GI/Abdominal Exam GI & Abdominal Exam: Soft, Normal Bowel Sounds - Rectal Exam Rectal Exam: NORMAL INSPECTION - Extremities Exam Extremities Exam: Full ROM, Normal Capillary Refill, Normal Inspection - Back Exam Back Exam: NORMAL INSPECTION. absent: CVA tenderness (L), CVA tenderness (R) - Neurological Exam Neurological Exam: Alert, Awake, Oriented x3 - Psychiatric Exam Psychiatric exam: Normal Affect, Normal Mood - Skin Skin Exam: Dry, Intact, Normal Color, Warm Assessment and Plan - Assessment and Plan (Free Text) Assessment: 67 yo female with PMH of HTN, HLD, Osteoarthritis present to ED for Persistent wound drainage of surgical wound. Pt is S/P I&D day 1 Right knee wound drainage Vital stable except for bp if 154/77 CBC WNL except for mild anemia ( Hgb 9.3 Hct 27.1 Coags: PT 12.2, INR 1.1, aPTT 30.0 CXR: No acute disease Regular diet tylenol for fever prn percocet for moderate pain Zofran for nausea prn Monitor for acute changes Continue with daptomycin 500 mg IV Q48h F/U ID consult, Dr. Bolivar F/U blood culture and Urine culture PT will need to go Back to OR as per Ortho on Monday will put on NPO Monday Anemia Hgb Droped from 9.3 to 8.5, hct from 27.1 to 25.1 Continue Ferrous Sulfate Colace for constipation HTN Contiunue with home medication - norvasc, losartan/HCTZ, carvedilol, ASA HLD Continue with pravastatin VIt D diff Continue vit D Prophylactic measures SCD hold anticoagulation <Neva Ramirez - Last Filed: 04/20/18 18:16> Objective - Vital Signs/Intake and Output Vital Signs (last 24 hours): Temp Pulse Resp BP Pulse Ox 98 F 73 20 135/77 96 04/20/18 16:17 04/20/18 16:17 04/20/18 16:17 04/20/18 16:17 04/20/18 16:17 Intake and Output: 04/20/18 04/20/18 06:59 18:59 Intake Total 702 Output Total 450 Balance 252 - Medications Medications: Current Medications Acetaminophen (Tylenol 325mg Tab) 650 mg PO Q4 PRN PRN Reason: Fever 101 degrees fahrenheit Allopurinol (Zyloprim) 100 mg PO DAILY [facility] Last Admin: 04/20/18 08:47 Dose: 100 mg Amlodipine Besylate (Norvasc) 5 mg PO DAILY [facility] Last Admin: 04/20/18 08:47 Dose: 5 mg Aspirin (Ecotrin) 81 mg PO Q12 [facility] Last Admin: 04/20/18 08:47 Dose: 81 mg Carvedilol (Coreg) 6.25 mg PO BID [facility] Last Admin: 04/20/18 16:17 Dose: 6.25 mg Cholecalciferol (Vitamin D) 2,000 intlu PO DAILY [facility] Last Admin: 04/20/18 08:47 Dose: 2,000 intlu Ferrous Sulfate (Feosol) 325 mg PO BID [facility] Last Admin: 04/20/18 16:17 Dose: 325 mg Folic Acid (Folic Acid) 1 mg PO DAILY [facility] Last Admin: 04/20/18 08:47 Dose: 1 mg Hydrochlorothiazide (Microzide) 12.5 mg PO DAILY [facility] Last Admin: 04/20/18 08:48 Dose: 12.5 mg Daptomycin 500 mg/ Sodium (Chloride) 100 mls @ 100 mls/hr IV Q48H [facility] Stop: 04/23/18 21:01 Last Admin: 04/18/18 22:55 Dose: 100 mls/hr Losartan Potassium (Cozaar) 100 mg PO DAILY [facility] Last Admin: 04/20/18 08:47 Dose: 100 mg Multivitamins/Minerals (Therapeutic-M Tab) 1 tab PO DAILY [facility] Last Admin: 04/20/18 08:46 Dose: 1 tab Ondansetron HCl (Zofran Inj) 4 mg IVP ONCE PRN PRN Reason: Nausea/Vomiting Oxycodone/Acetaminophen (Percocet 5/325 Mg Tab) 1 tab PO Q4 PRN PRN Reason: Pain, moderate (4-7) Stop: 04/21/18 18:22 Last Admin: 04/19/18 22:08 Dose: 1 tab Pravastatin Sodium (Pravachol) 20 mg PO [facility] Last Admin: 04/19/18 22:07 Dose: 20 mg Senna/Docusate Sodium (Senokot S 50 Mg-8.6 Mg) 1 tab PO [facility] Last Admin: 04/19/18 22:07 Dose: 1 tab - Labs Labs: 04/20/18 05:30 04/20/18 05:30 PT 12.2 Seconds (9.8-13.1) 04/18/18 19:13 INR 1.1 04/18/18 19:13 APTT 30.0 Seconds (25.6-37.1) 04/18/18 19:13 Attending/Attestation - Attestation I have personally seen and examined this patient.: Yes I have fully participated in the care of the patient.: Yes I have reviewed all pertinent clinical information, including history, physical exam and plan: Yes Notes (Text): 04/20/18 18:16 Seen, examined, discussed with resident, agree with findings and plan as above.
--- NOTE | 2018-04-20 09:39 | CP.PCM.PN ---
Subjective - Date & Time of Evaluation Date of Evaluation: 04/20/18 Time of Evaluation: 09:00 - Subjective Subjective: NO COMPLAINTS EXCEPT FOR PAIN AT RIGHT KNEE SURGICAL SITE Objective - Vital Signs/Intake and Output Vital Signs (last 24 hours): Temp Pulse Resp BP Pulse Ox 98.5 F 73 18 144/78 96 04/20/18 08:24 04/20/18 08:46 04/20/18 08:24 04/20/18 08:46 04/20/18 08:24 Intake and Output: 04/20/18 04/20/18 06:59 18:59 Intake Total 702 Output Total 450 Balance 252 - Medications Medications: Current Medications Acetaminophen (Tylenol 325mg Tab) 650 mg PO Q4 PRN PRN Reason: Fever 101 degrees fahrenheit Allopurinol (Zyloprim) 100 mg PO DAILY [facility] Last Admin: 04/20/18 08:47 Dose: 100 mg Amlodipine Besylate (Norvasc) 5 mg PO DAILY [facility] Last Admin: 04/20/18 08:47 Dose: 5 mg Aspirin (Ecotrin) 81 mg PO Q12 [facility] Last Admin: 04/20/18 08:47 Dose: 81 mg Carvedilol (Coreg) 6.25 mg PO BID [facility] Last Admin: 04/20/18 08:46 Dose: 6.25 mg Cholecalciferol (Vitamin D) 2,000 intlu PO DAILY [facility] Last Admin: 04/20/18 08:47 Dose: 2,000 intlu Ferrous Sulfate (Feosol) 325 mg PO BID [facility] Last Admin: 04/20/18 08:46 Dose: 325 mg Folic Acid (Folic Acid) 1 mg PO DAILY [facility] Last Admin: 04/20/18 08:47 Dose: 1 mg Hydrochlorothiazide (Microzide) 12.5 mg PO DAILY [facility] Last Admin: 04/20/18 08:48 Dose: 12.5 mg Daptomycin 500 mg/ Sodium (Chloride) 100 mls @ 100 mls/hr IV Q48H [facility] Stop: 04/23/18 21:01 Last Admin: 04/18/18 22:55 Dose: 100 mls/hr Losartan Potassium (Cozaar) 100 mg PO DAILY [facility] Last Admin: 04/20/18 08:47 Dose: 100 mg Multivitamins/Minerals (Therapeutic-M Tab) 1 tab PO DAILY [facility] Last Admin: 04/20/18 08:46 Dose: 1 tab Ondansetron HCl (Zofran Inj) 4 mg IVP ONCE PRN PRN Reason: Nausea/Vomiting Oxycodone/Acetaminophen (Percocet 5/325 Mg Tab) 1 tab PO Q4 PRN PRN Reason: Pain, moderate (4-7) Stop: 04/21/18 18:22 Last Admin: 04/19/18 22:08 Dose: 1 tab Pravastatin Sodium (Pravachol) 20 mg PO HS [facility] Last Admin: 04/19/18 22:07 Dose: 20 mg Senna/Docusate Sodium (Senokot S 50 Mg-8.6 Mg) 1 tab PO HS [facility] Last Admin: 04/19/18 22:07 Dose: 1 tab - Labs Labs: 04/20/18 05:30 04/20/18 05:30 PT 12.2 Seconds (9.8-13.1) 04/18/18 19:13 INR 1.1 04/18/18 19:13 APTT 30.0 Seconds (25.6-37.1) 04/18/18 19:13 - Respiratory Exam Respiratory Exam: Clear to Ausculation Bilateral - Cardiovascular Exam Cardiovascular Exam: REGULAR RHYTHM, +S1, +S2 - Extremities Exam Additional comments: RLE IN IMMOBILIZER - Additional Findings Additional findings: OR NOTES REVIEWED Assessment and Plan - Assessment and Plan (Free Text) Assessment: REVISION OF RIGHT TKR INCLUDING IRRIGATION AND DEBRIDEMENT HYPERTENSION HYPERLIPIDEMIA Plan: CONTINUE LOSARTAN, CARVEDILOL, ASPIRIN, PRAVASTATIN, HCTZ, AMLODIPINE AND ANTIBIOTICS
--- NOTE | 2018-04-20 11:44 | OP ---
PROCEDURE DATE: 04/19/2018 PREOPERATIVE DIAGNOSIS: Wound dehiscence, status post revision total knee replacement, rule out deep sepsis. POSTOPERATIVE DIAGNOSIS: Wound dehiscence and retention of foreign matter including sutures and status post successful total knee replacement arthroplasty, rule out deep sepsis. No evidence of deep sepsis. Aspiration needles approximately 8-10 white cells per high-power field. No clinical evidence of deep sepsis after multiple dressing changes, the patient had exhibited no increasing pain on passive flexion and dorsiflexion. There is no erythema or cellulitis. There is no purulent drainage. The patient is taken to the operating room today for application of the Versa foam wound VAC to prevent any future infection. After conservative management of the wound at this point and retention of the prosthesis, the patient will be referred to plastic surgery for primary management of the approximately 2 cm x 4 cm wound dehiscence at the mid aspect of the wound. OPERATIVE FINDINGS: 1. Wound dehiscence mid aspect of the total knee replacement of wound. 2. Retained sutures. 3. Non-purulent drainage, which has been managed at this point by wound VAC and dressing changes. OPERATIVE PROCEDURE: 1. Application of wound VAC Versa foam type. 2. Irrigation and debridement of the right knee incision and drainage. 3. Removal of foreign bodies, deep. 4. Aspiration of the knee. 5. Manipulation of the knee under anesthesia. 6. Positioning fluoroscope interpretation of video images. SURGEON: Len Plummer MD. WIG STYLIST: Guerita Garcia, certified registered nursing list of first job ideas. ANESTHESIA: General endotracheal anesthesia. ANESTHESIOLOGIST: Dr. Ross. COMPLICATIONS: No complications. DRAIN: The aforementioned Versa foam wound VAC. OPERATIVE INDICATIONS: Alma Gomez is a 67-year-old woman who has had a total knee replacement arthroplasty, which was complicated by non-purulent drainage. The patient was taken back, irrigation was accomplished and debridement. At that point in time, the wound VAC was applied. The patient was discharged, several changes of wound VAC had been accomplished to prevent any possibility of infection from the recent dressing changes and the frequent dressing changes. The patient is admitted through the emergency room. Pros, cons, risks and benefits of this application of the Versa foam wound VAC are discussed as well as debridement. The concept that she will in all medical probability require one or two further plastic surgical procedures was discussed with the patient, the daughter, Ruma and son, Carlos. OPERATIVE PROCEDURE: After having obtained informed consent, after having identified the side, site and procedure and critical pause/time-out after the satisfactory induction of the anesthetic, the patient identified Alma Gomez in the supine position with all bony prominences well padded. The right lower extremity was prepped and free draped in usual fashion for lower extremity surgery. Tourniquet had been applied but was not yet inflated. The tourniquet was not employed at this point because of the possible septic nature and not to spread any sepsis. This having been accomplished, the wound was identified. The wound edges were excised. Irrigation, debridement was accomplished using a #10 blade. The wound edges were freshened to bleeding tissue. All sutures were removed and sekou removed. All foreign bodies were removed. The patient had had an implantation of antibiotic beads prior and that was certainly protective to prevent a deep infection. Aspiration of the knee was accomplished from a superolateral portal. The bloody drainage was sent out for lab, aerobic, anaerobic, AFB and fungal cultures were accomplished as well as stat Gram stain with number of white cells per high-power field. This having been accomplished, the stat Gram stain reveals no bacteriuria and variable opinion about the number of white cells ranging anywhere between 8-12. There is certainly no evidence for deep sepsis. This having been accomplished, the wound was thoroughly irrigated at this point in time after aspiration, the Versa foam wound VAC, the base material, which is hydrophilic is applied, it was applied with a sealed VAC adhesive as per manufacture direction. The central area is trimmed to a 50 cm piece area. The wound VAC is applied, further adhesive was applied to create a seal in the wound VAC and this was set up to the Versa foam. The Versa foam machine will instill 10 mL of Dakin's solution every 2 hours and the wound VAC for 2 hours and this will be accomplished on the floor, the seal will not be broken being protective to prevent future infection. Jesus Alberto-Rodrigez compression dressing and knee immobilizers applied. The operation could not have been taken to conclusion without the assistance of the list of first job ideas, Guerita Garcia. Len Plummer MD
--- NOTE | 2018-04-20 12:21 | CP.PCM.PN ---
Subjective - Date & Time of Evaluation Date of Evaluation: 04/20/18 Time of Evaluation: 12:19 - Subjective Subjective: Patient denies pain currently. Asks about plan. Denies CP/SOB/dizziness. D/w son via phone at patient request. Objective - Vital Signs/Intake and Output Vital Signs (last 24 hours): Temp Pulse Resp BP Pulse Ox 98.5 F 73 18 144/78 96 04/20/18 08:24 04/20/18 08:46 04/20/18 08:24 04/20/18 08:46 04/20/18 08:24 Intake and Output: 04/20/18 04/20/18 06:59 18:59 Intake Total 702 Output Total 450 Balance 252 - Medications Medications: Current Medications Acetaminophen (Tylenol 325mg Tab) 650 mg PO Q4 PRN PRN Reason: Fever 101 degrees fahrenheit Allopurinol (Zyloprim) 100 mg PO DAILY [facility] Last Admin: 04/20/18 08:47 Dose: 100 mg Amlodipine Besylate (Norvasc) 5 mg PO DAILY [facility] Last Admin: 04/20/18 08:47 Dose: 5 mg Aspirin (Ecotrin) 81 mg PO Q12 [facility] Last Admin: 04/20/18 08:47 Dose: 81 mg Carvedilol (Coreg) 6.25 mg PO BID [facility] Last Admin: 04/20/18 08:46 Dose: 6.25 mg Cholecalciferol (Vitamin D) 2,000 intlu PO DAILY [facility] Last Admin: 04/20/18 08:47 Dose: 2,000 intlu Ferrous Sulfate (Feosol) 325 mg PO BID [facility] Last Admin: 04/20/18 08:46 Dose: 325 mg Folic Acid (Folic Acid) 1 mg PO DAILY [facility] Last Admin: 04/20/18 08:47 Dose: 1 mg Hydrochlorothiazide (Microzide) 12.5 mg PO DAILY [facility] Last Admin: 04/20/18 08:48 Dose: 12.5 mg Daptomycin 500 mg/ Sodium (Chloride) 100 mls @ 100 mls/hr IV Q48H [facility] Stop: 04/23/18 21:01 Last Admin: 04/18/18 22:55 Dose: 100 mls/hr Losartan Potassium (Cozaar) 100 mg PO DAILY [facility] Last Admin: 04/20/18 08:47 Dose: 100 mg Multivitamins/Minerals (Therapeutic-M Tab) 1 tab PO DAILY [facility] Last Admin: 04/20/18 08:46 Dose: 1 tab Ondansetron HCl (Zofran Inj) 4 mg IVP ONCE PRN PRN Reason: Nausea/Vomiting Oxycodone/Acetaminophen (Percocet 5/325 Mg Tab) 1 tab PO Q4 PRN PRN Reason: Pain, moderate (4-7) Stop: 04/21/18 18:22 Last Admin: 04/19/18 22:08 Dose: 1 tab Pravastatin Sodium (Pravachol) 20 mg PO HS [facility] Last Admin: 04/19/18 22:07 Dose: 20 mg Senna/Docusate Sodium (Senokot S 50 Mg-8.6 Mg) 1 tab PO HS [facility] Last Admin: 04/19/18 22:07 Dose: 1 tab - Labs Labs: 04/20/18 05:30 04/20/18 05:30 PT 12.2 Seconds (9.8-13.1) 04/18/18 19:13 INR 1.1 04/18/18 19:13 APTT 30.0 Seconds (25.6-37.1) 04/18/18 19:13 - Extremities Exam Additional comments: right knee: veraflo wound vac functioning. +ROM ankle/toes, sensation intact +DP/PT pulses calves soft NT neg homans Assessment and Plan (1) Wound dehiscence Assessment & Plan: POD#1 s/p wound debridement and wound vac application, ZAYRA plan for continued veraflo wound vac as per Dr. Plummer Return to OR monday 04/23 for wound vac change vs removal Vac cycle incluses 8mL 0.25% dakins solution for 10 min, then vacuum for 2 hours, cycle repeats dressing change planned by Dr. Plummer this weekend maintain knee immobilizer at all times VTE proph PT/OT 10% foot flat WB RLE d/w Dr. Plummer, agrees with abvoe Status: Acute
--- NOTE | 2018-04-20 17:03 | CP.PCM.PN ---
Subjective - Date & Time of Evaluation Date of Evaluation: 04/20/18 Time of Evaluation: 17:00 - Subjective Subjective: ID NOTE NOT INFORMED THAT PATIENT WAS IN HOSPITAL IN OR 04/19/18 IN WHICH DEBRIDEMENT WAE DONE ALONG c PLACEMENT OF WOUND VACUUM . MULTIPLE INTRAOPERATIVE CULTURES TAKEN CONTINUE DAPTOMYCIN IN ADJUSTED RENAL DOSE Objective - Vital Signs/Intake and Output Vital Signs (last 24 hours): Temp Pulse Resp BP Pulse Ox 98 F 73 20 135/77 96 04/20/18 16:17 04/20/18 16:17 04/20/18 16:17 04/20/18 16:17 04/20/18 16:17 Intake and Output: 04/20/18 04/20/18 06:59 18:59 Intake Total 702 Output Total 450 Balance 252 - Medications Medications: Current Medications Acetaminophen (Tylenol 325mg Tab) 650 mg PO Q4 PRN PRN Reason: Fever 101 degrees fahrenheit Allopurinol (Zyloprim) 100 mg PO DAILY [facility] Last Admin: 04/20/18 08:47 Dose: 100 mg Amlodipine Besylate (Norvasc) 5 mg PO DAILY [facility] Last Admin: 04/20/18 08:47 Dose: 5 mg Aspirin (Ecotrin) 81 mg PO Q12 [facility] Last Admin: 04/20/18 08:47 Dose: 81 mg Carvedilol (Coreg) 6.25 mg PO BID [facility] Last Admin: 04/20/18 16:17 Dose: 6.25 mg Cholecalciferol (Vitamin D) 2,000 intlu PO DAILY [facility] Last Admin: 04/20/18 08:47 Dose: 2,000 intlu Ferrous Sulfate (Feosol) 325 mg PO BID [facility] Last Admin: 04/20/18 16:17 Dose: 325 mg Folic Acid (Folic Acid) 1 mg PO DAILY [facility] Last Admin: 04/20/18 08:47 Dose: 1 mg Hydrochlorothiazide (Microzide) 12.5 mg PO DAILY [facility] Last Admin: 04/20/18 08:48 Dose: 12.5 mg Daptomycin 500 mg/ Sodium (Chloride) 100 mls @ 100 mls/hr IV Q48H [facility] Stop: 04/23/18 21:01 Last Admin: 04/18/18 22:55 Dose: 100 mls/hr Losartan Potassium (Cozaar) 100 mg PO DAILY [facility] Last Admin: 04/20/18 08:47 Dose: 100 mg Multivitamins/Minerals (Therapeutic-M Tab) 1 tab PO DAILY [facility] Last Admin: 04/20/18 08:46 Dose: 1 tab Ondansetron HCl (Zofran Inj) 4 mg IVP ONCE PRN PRN Reason: Nausea/Vomiting Oxycodone/Acetaminophen (Percocet 5/325 Mg Tab) 1 tab PO Q4 PRN PRN Reason: Pain, moderate (4-7) Stop: 04/21/18 18:22 Last Admin: 04/19/18 22:08 Dose: 1 tab Pravastatin Sodium (Pravachol) 20 mg PO HS [facility] Last Admin: 04/19/18 22:07 Dose: 20 mg Senna/Docusate Sodium (Senokot S 50 Mg-8.6 Mg) 1 tab PO HS [facility] Last Admin: 04/19/18 22:07 Dose: 1 tab - Labs Labs: 04/20/18 05:30 04/20/18 05:30 PT 12.2 Seconds (9.8-13.1) 04/18/18 19:13 INR 1.1 04/18/18 19:13 APTT 30.0 Seconds (25.6-37.1) 04/18/18 19:13
[2018-04-20] MEDS: Pravastatin Sodium 20 MG TAB PO SCH (21:06)
[2018-04-20] MEDS: DAPTOmycin 500 MG in Sodium Chloride 0.9% 100 ML IV SCH (21:09)
[2018-04-20] MEDS: Oxycodone/Acetaminophen 5/325 mg Tab PO PRN (21:26)
[2018-04-20] MEDS: Docusate-Senna 50 mg-8.6 mg Tab PO SCH (21:26)
--- NOTE | 2018-04-21 09:38 | CP.PCM.PN ---
Subjective - Date & Time of Evaluation Date of Evaluation: 04/21/18 Time of Evaluation: 08:30 - Subjective Subjective: Patient seen at bedside in not acute distress. Pain is controlled. NO changes in urination or stools. Denies fatigue, CP or palpitations. Tolerating PO. Objective - Vital Signs/Intake and Output Vital Signs (last 24 hours): Temp Pulse Resp BP Pulse Ox 98.2 F 74 20 123/69 98 04/21/18 08:09 04/21/18 08:09 04/21/18 08:09 04/21/18 08:09 04/21/18 08:09 - Medications Medications: Current Medications Acetaminophen (Tylenol 325mg Tab) 650 mg PO Q4 PRN PRN Reason: Fever 101 degrees fahrenheit Allopurinol (Zyloprim) 100 mg PO DAILY [facility] Last Admin: 04/20/18 08:47 Dose: 100 mg Amlodipine Besylate (Norvasc) 5 mg PO DAILY [facility] Last Admin: 04/20/18 08:47 Dose: 5 mg Aspirin (Ecotrin) 81 mg PO Q12 [facility] Last Admin: 04/20/18 21:06 Dose: 81 mg Carvedilol (Coreg) 6.25 mg PO BID [facility] Last Admin: 04/20/18 16:17 Dose: 6.25 mg Cholecalciferol (Vitamin D) 2,000 intlu PO DAILY [facility] Last Admin: 04/20/18 08:47 Dose: 2,000 intlu Ferrous Sulfate (Feosol) 325 mg PO BID [facility] Last Admin: 04/20/18 16:17 Dose: 325 mg Folic Acid (Folic Acid) 1 mg PO DAILY [facility] Last Admin: 04/20/18 08:47 Dose: 1 mg Hydrochlorothiazide (Microzide) 12.5 mg PO DAILY [facility] Last Admin: 04/20/18 08:48 Dose: 12.5 mg Daptomycin 500 mg/ Sodium (Chloride) 100 mls @ 100 mls/hr IV Q48H [facility] Stop: 04/23/18 21:01 Last Admin: 04/20/18 21:09 Dose: 100 mls/hr Losartan Potassium (Cozaar) 100 mg PO DAILY [facility] Last Admin: 04/20/18 08:47 Dose: 100 mg Multivitamins/Minerals (Therapeutic-M Tab) 1 tab PO DAILY [facility] Last Admin: 04/20/18 08:46 Dose: 1 tab Ondansetron HCl (Zofran Inj) 4 mg IVP ONCE PRN PRN Reason: Nausea/Vomiting Oxycodone/Acetaminophen (Percocet 5/325 Mg Tab) 1 tab PO Q4 PRN PRN Reason: Pain, moderate (4-7) Stop: 04/21/18 18:22 Last Admin: 04/20/18 21:26 Dose: 1 tab Pravastatin Sodium (Pravachol) 20 mg PO HS [facility] Last Admin: 04/20/18 21:06 Dose: 20 mg Senna/Docusate Sodium (Senokot S 50 Mg-8.6 Mg) 1 tab PO HS [facility] Last Admin: 04/20/18 21:26 Dose: 1 tab - Labs Labs: 04/20/18 05:30 04/20/18 05:30 PT 12.2 Seconds (9.8-13.1) 04/18/18 19:13 INR 1.1 04/18/18 19:13 APTT 30.0 Seconds (25.6-37.1) 04/18/18 19:13 - Constitutional Appears: Non-toxic, No Acute Distress - Eye Exam Eye Exam: EOMI, PERRL - ENT Exam ENT Exam: Mucous Membranes Moist - Respiratory Exam Respiratory Exam: Clear to Ausculation Bilateral, NORMAL BREATHING PATTERN. absent: Rales, Rhonchi, Wheezes - GI/Abdominal Exam GI & Abdominal Exam: Soft, Normal Bowel Sounds. absent: Distended, Guarding, Tenderness, Rebound - Extremities Exam Extremities Exam: Normal Capillary Refill, Pedal Edema (R/foot). absent: Calf Tenderness Additional comments: No signs of acute neurovascular compromise R/knee drainage in place. 300 ml, serosanguienos present. Right knee: veraflo wound vac functioning. - Neurological Exam Neurological Exam: Alert, Awake, Oriented x3 - Psychiatric Exam Psychiatric exam: Normal Affect, Normal Mood - Skin Skin Exam: Warm Assessment and Plan - Assessment and Plan (Free Text) Assessment: Right knee wound drainage Vital stable CBC WNL except for mild anemia Regular diet pain management Zofran for nausea prn Continue with daptomycin 500 mg IV Q48h as per ID, renal adjusted dose F/U ID consult, Dr. Bolivar Repeat UCx <1000 colonies PT will need to go Back to [place] as per Ortho on Monday NPO past midnight on Monday Anemia Stable Continue Ferrous Sulfate Colace for constipation Monitor HTN Stable, chronic Contiunue with home medication - norvasc, losartan/HCTZ, carvedilol, ASA HLD Continue with pravastatin VIt D diff Continue vit D Prophylactic measures SCD Lovenox held, anemia, serosanguineous drainage
[2018-04-21] MEDS: Multivitamin With Minerals Tab PO SCH (09:43)
[2018-04-21] MEDS: Cholecalciferol 1,000 INTLU TAB PO SCH (09:44)
--- NOTE | 2018-04-21 10:56 | CP.PCM.PN ---
Subjective - Date & Time of Evaluation Date of Evaluation: 04/21/18 Time of Evaluation: 10:35 - Subjective Subjective: S- pt shayan her usual level of anxiety Minimal post op discomfort encounter in prerscence of daughter Becky Objective - Vital Signs/Intake and Output Vital Signs (last 24 hours): Temp Pulse Resp BP Pulse Ox 98.2 F 74 20 123/69 98 04/21/18 08:09 04/21/18 08:09 04/21/18 08:09 04/21/18 08:09 04/21/18 08:09 - Medications Medications: Current Medications Acetaminophen (Tylenol 325mg Tab) 650 mg PO Q4 PRN PRN Reason: Fever 101 degrees fahrenheit Allopurinol (Zyloprim) 100 mg PO DAILY [facility] Last Admin: 04/21/18 09:42 Dose: 100 mg Amlodipine Besylate (Norvasc) 5 mg PO DAILY [facility] Last Admin: 04/21/18 09:44 Dose: 5 mg Aspirin (Ecotrin) 81 mg PO Q12 [facility] Last Admin: 04/21/18 09:43 Dose: 81 mg Carvedilol (Coreg) 6.25 mg PO BID [facility] Last Admin: 04/21/18 09:42 Dose: 6.25 mg Cholecalciferol (Vitamin D) 2,000 intlu PO DAILY [facility] Last Admin: 04/21/18 09:44 Dose: 2,000 intlu Ferrous Sulfate (Feosol) 325 mg PO BID [facility] Last Admin: 04/21/18 09:42 Dose: 325 mg Folic Acid (Folic Acid) 1 mg PO DAILY [facility] Last Admin: 04/21/18 09:43 Dose: 1 mg Hydrochlorothiazide (Microzide) 12.5 mg PO DAILY [facility] Last Admin: 04/21/18 09:42 Dose: 12.5 mg Daptomycin 500 mg/ Sodium (Chloride) 100 mls @ 100 mls/hr IV Q48H [facility] Stop: 04/23/18 21:01 Last Admin: 04/20/18 21:09 Dose: 100 mls/hr Losartan Potassium (Cozaar) 100 mg PO DAILY [facility] Last Admin: 04/21/18 09:43 Dose: 100 mg Multivitamins/Minerals (Therapeutic-M Tab) 1 tab PO DAILY [facility] Last Admin: 04/21/18 09:43 Dose: 1 tab Ondansetron HCl (Zofran Inj) 4 mg IVP ONCE PRN PRN Reason: Nausea/Vomiting Oxycodone/Acetaminophen (Percocet 5/325 Mg Tab) 1 tab PO Q4 PRN PRN Reason: Pain, moderate (4-7) Stop: 04/21/18 18:22 Last Admin: 04/20/18 21:26 Dose: 1 tab Pravastatin Sodium (Pravachol) 20 mg PO HS [facility] Last Admin: 04/20/18 21:06 Dose: 20 mg Senna/Docusate Sodium (Senokot S 50 Mg-8.6 Mg) 1 tab PO HS [facility] Last Admin: 04/20/18 21:26 Dose: 1 tab - Labs Labs: 04/20/18 05:30 04/20/18 05:30 PT 12.2 Seconds (9.8-13.1) 04/18/18 19:13 INR 1.1 04/18/18 19:13 APTT 30.0 Seconds (25.6-37.1) 04/18/18 19:13 - Additional Findings Additional findings: Objective wound granulating welll dressing changed ] Versiflow wound vac dressing changed and reapllied ( see procedure note) No pain (increase on passive flexion dorsiflexion) No evidence for sdeep sepsis non purulent versiflow drainae continues Assessment and Plan - Assessment and Plan (Free Text) Assessment: A- s.p wound debridement and aspiration no evidenc erofr deep sepsis P- dressing change Monday to wound vac Procedures Attestation:: I certify that I have explained the specified Operation(s) or Procedure(s), risks, benefits and reasonable alternatives to the Patient and/or other person responsible. The opportunity was given to ask questions and all questions answered - Dressing Care Location #1 Debridment Necessary: No Dressing Type: Dry Sterile Neurovascular Qualities Intact: Yes Patient Tolerated Procedure: well Additional Comments: Procedure note Pt Cardosohad undergone wound debridement nad application of VERAFLOW KCI wound vac installatiuon thewrapy. This had been applied in OR ; pt doing quite well; has been afebrile with no ecidence for deep sepsis. Under sterile c onditions, with nurse Hernandez in attendancem, shayan [employer] rep Zach Cuevas in attendance, with daughter and pt aware of the pros, cons risks and befits of the VERAFLOW wound vac installation therapy reapplication, pt consents tyo change and reinstakllation at the bedside. iNITIOAL DRY DRESSING IS removed; under sterile conitions the VERAFLOW initial installation therapy wound vac is removed. At this point, a steriley p[ackaged VERAFLOW wound vac is reappliedin the following fasion: 1) the hyrdphiolic VERAFLOW FOAM is cut to the wound dehiscience dimensions. Adfaptic is plavced on the remainder of the wound distally. At this point the initial KCI draping is sterillely applied. At this point the SENSATRAC pad is applied and connected to the installation therapy soultion. The solurtion is 1/4 strength Dakinms solution applied to 1000 cc of Normal Saline. The installation is 10 min of the solution installation followed by two houyrs of active wound vac. 50 mg Dakins solution is employed/ Pt comfortable during the procedure and tolerated the dressing and VERAFLOW application well.( CPT 96422)
[2018-04-21] MEDS ORDERED: Bisacodyl 5mg EC Tab PO ONE (12:30)
--- NOTE | 2018-04-21 13:20 | CP.PCM.PN ---
Subjective - Date & Time of Evaluation Date of Evaluation: 04/21/18 Time of Evaluation: 12:40 - Subjective Subjective: NO CHEST PAIN OR SOB Objective - Vital Signs/Intake and Output Vital Signs (last 24 hours): Temp Pulse Resp BP Pulse Ox 98.2 F 74 20 123/69 98 04/21/18 08:09 04/21/18 08:09 04/21/18 08:09 04/21/18 08:09 04/21/18 08:09 - Medications Medications: Current Medications Acetaminophen (Tylenol 325mg Tab) 650 mg PO Q4 PRN PRN Reason: Fever 101 degrees fahrenheit Allopurinol (Zyloprim) 100 mg PO DAILY [facility] Last Admin: 04/21/18 09:42 Dose: 100 mg Amlodipine Besylate (Norvasc) 5 mg PO DAILY [facility] Last Admin: 04/21/18 09:44 Dose: 5 mg Aspirin (Ecotrin) 81 mg PO Q12 [facility] Last Admin: 04/21/18 09:43 Dose: 81 mg Carvedilol (Coreg) 6.25 mg PO BID [facility] Last Admin: 04/21/18 09:42 Dose: 6.25 mg Cholecalciferol (Vitamin D) 2,000 intlu PO DAILY [facility] Last Admin: 04/21/18 09:44 Dose: 2,000 intlu Ferrous Sulfate (Feosol) 325 mg PO BID [facility] Last Admin: 04/21/18 09:42 Dose: 325 mg Folic Acid (Folic Acid) 1 mg PO DAILY [facility] Last Admin: 04/21/18 09:43 Dose: 1 mg Hydrochlorothiazide (Microzide) 12.5 mg PO DAILY [facility] Last Admin: 04/21/18 09:42 Dose: 12.5 mg Daptomycin 500 mg/ Sodium (Chloride) 100 mls @ 100 mls/hr IV Q48H [facility] Stop: 04/23/18 21:01 Last Admin: 04/20/18 21:09 Dose: 100 mls/hr Losartan Potassium (Cozaar) 100 mg PO DAILY [facility] Last Admin: 04/21/18 09:43 Dose: 100 mg Multivitamins/Minerals (Therapeutic-M Tab) 1 tab PO DAILY [facility] Last Admin: 04/21/18 09:43 Dose: 1 tab Ondansetron HCl (Zofran Inj) 4 mg IVP ONCE PRN PRN Reason: Nausea/Vomiting Oxycodone/Acetaminophen (Percocet 5/325 Mg Tab) 1 tab PO Q4 PRN PRN Reason: Pain, moderate (4-7) Stop: 04/21/18 18:22 Last Admin: 04/20/18 21:26 Dose: 1 tab Pravastatin Sodium (Pravachol) 20 mg PO HS [facility] Last Admin: 04/20/18 21:06 Dose: 20 mg Senna/Docusate Sodium (Senokot S 50 Mg-8.6 Mg) 1 tab PO HS [facility] Last Admin: 04/20/18 21:26 Dose: 1 tab - Labs Labs: 04/20/18 05:30 04/20/18 05:30 PT 12.2 Seconds (9.8-13.1) 04/18/18 19:13 INR 1.1 04/18/18 19:13 APTT 30.0 Seconds (25.6-37.1) 04/18/18 19:13 - Respiratory Exam Respiratory Exam: Clear to Ausculation Bilateral - Cardiovascular Exam Cardiovascular Exam: REGULAR RHYTHM, +S1, +S2 Assessment and Plan - Assessment and Plan (Free Text) Assessment: REVISION AND CLEANING OF RIGHT TKR HYPERTENSION HYPERLIPIDEMIA Plan: CONTINUE LOSARTAN, CARVEDILOL, LOSARTAN, HCTZ, AMLODIPINE, ASPIRIN, PRAVASTATIN AND ANTIBIOTICS
[2018-04-21] MEDS: Pravastatin Sodium 20 MG TAB PO SCH (21:30)
[2018-04-21] MEDS ORDERED: Oxycodone/Acetaminophen 5/325 mg Tab PO PRN (21:37)
[2018-04-21] MEDS: Oxycodone/Acetaminophen 5/325 mg Tab PO PRN (21:58)
[2018-04-21] MEDS: Docusate-Senna 50 mg-8.6 mg Tab PO SCH (21:59)
[2018-04-22 08:44] LABS: HEMOGLOBIN 8.9 g/dL (12.0-16.0); MEAN CELL VOLUME 86.4 fl (81.0-99.0); MEAN CORPUSCULAR HEMOGLOBIN 29.2 pg (27.0-31.0); MEAN CORPUSCULAR HGB CONC 33.9 g/dL (33.0-37.0); RBC 3.04 Mil/uL (3.80-5.20); RED CELL DISTRIBUTION WIDTH 15.5 % (11.5-14.5); WHITE BLOOD COUNT 5.7 K/uL (4.8-10.8)
[2018-04-22 08:51] LABS: CALCIUM 9.2 mg/dL (8.4-10.2)
[2018-04-22] MEDS: Cholecalciferol 1,000 INTLU TAB PO SCH (09:24)
[2018-04-22] MEDS: Multivitamin With Minerals Tab PO SCH (09:24)
--- NOTE | 2018-04-22 10:24 | CP.PCM.PN ---
Subjective - Date & Time of Evaluation Date of Evaluation: 04/22/18 Time of Evaluation: 08:50 - Subjective Subjective: Seen at bedside in not acute distress. Denies pain. Tolerating PO. No changes in urination or stools. Denies dizziness, vision changes, CP or palpitations. Aware that will go to OR tomorrow Objective - Vital Signs/Intake and Output Vital Signs (last 24 hours): Temp Pulse Resp BP Pulse Ox 97.9 F 67 18 132/78 98 04/22/18 08:29 04/22/18 09:24 04/22/18 08:29 04/22/18 09:24 04/22/18 08:29 - Medications Medications: Current Medications Acetaminophen (Tylenol 325mg Tab) 650 mg PO Q4 PRN PRN Reason: Fever 101 degrees fahrenheit Allopurinol (Zyloprim) 100 mg PO DAILY [facility] Last Admin: 04/22/18 09:24 Dose: 100 mg Amlodipine Besylate (Norvasc) 5 mg PO DAILY [facility] Last Admin: 04/22/18 09:23 Dose: 5 mg Aspirin (Ecotrin) 81 mg PO Q12 [facility] Last Admin: 04/21/18 21:30 Dose: 81 mg Carvedilol (Coreg) 6.25 mg PO BID [facility] Last Admin: 04/22/18 09:21 Dose: 6.25 mg Cholecalciferol (Vitamin D) 2,000 intlu PO DAILY [facility] Last Admin: 04/22/18 09:24 Dose: 2,000 intlu Ferrous Sulfate (Feosol) 325 mg PO BID [facility] Last Admin: 04/22/18 09:22 Dose: 325 mg Folic Acid (Folic Acid) 1 mg PO DAILY [facility] Last Admin: 04/22/18 09:24 Dose: 1 mg Hydrochlorothiazide (Microzide) 12.5 mg PO DAILY [facility] Last Admin: 04/22/18 09:22 Dose: 12.5 mg Daptomycin 500 mg/ Sodium (Chloride) 100 mls @ 100 mls/hr IV Q48H [facility] Stop: 04/23/18 21:01 Last Admin: 04/20/18 21:09 Dose: 100 mls/hr Losartan Potassium (Cozaar) 100 mg PO DAILY [facility] Last Admin: 04/22/18 09:24 Dose: 100 mg Multivitamins/Minerals (Therapeutic-M Tab) 1 tab PO DAILY [facility] Last Admin: 04/22/18 09:24 Dose: 1 tab Ondansetron HCl (Zofran Inj) 4 mg IVP ONCE PRN PRN Reason: Nausea/Vomiting Oxycodone/Acetaminophen (Percocet 5/325 Mg Tab) 1 tab PO Q4 PRN PRN Reason: Pain, moderate (4-7) Stop: 04/24/18 21:37 Last Admin: 04/21/18 21:58 Dose: 1 tab Oxycodone/Acetaminophen (Percocet 5/325 Mg Tab) 2 tab PO Q4 PRN PRN Reason: Pain, severe (8-10) Stop: 04/24/18 21:38 Pravastatin Sodium (Pravachol) 20 mg PO HS [facility] Last Admin: 04/21/18 21:30 Dose: 20 mg Senna/Docusate Sodium (Senokot S 50 Mg-8.6 Mg) 1 tab PO HS [facility] Last Admin: 04/21/18 21:59 Dose: 1 tab - Labs Labs: 04/22/18 08:30 04/22/18 08:30 PT 12.2 Seconds (9.8-13.1) 04/18/18 19:13 INR 1.1 04/18/18 19:13 APTT 30.0 Seconds (25.6-37.1) 04/18/18 19:13 - Constitutional Appears: Non-toxic, No Acute Distress - Eye Exam Eye Exam: EOMI, PERRL - ENT Exam ENT Exam: Mucous Membranes Moist - Respiratory Exam Respiratory Exam: Clear to Ausculation Bilateral, NORMAL BREATHING PATTERN. absent: Rales, Rhonchi, Wheezes, Respiratory Distress, Stridor - Cardiovascular Exam Cardiovascular Exam: REGULAR RHYTHM, +S1, +S2 - GI/Abdominal Exam GI & Abdominal Exam: Soft, Normal Bowel Sounds. absent: Distended, Guarding, Tenderness, Rebound - Extremities Exam Extremities Exam: Normal Capillary Refill, Pedal Edema (Mild r/foot) Additional comments: No signs of acute neurovascular compromise R/knee immobilizer in place. Vac in place and functioning Drainage amount: 200 ml, serous - Neurological Exam Neurological Exam: Alert, Awake, Oriented x3 - Psychiatric Exam Psychiatric exam: Normal Affect, Normal Mood - Skin Skin Exam: Warm Assessment and Plan - Assessment and Plan (Free Text) Assessment: 67 yo female with PMH of HTN, HLD, Osteoarthritis present to ED for Persistent wound drainage of surgical wound S/P wound debridement and aspiration to r/knee VS stable Ortho on board CBC WNL except for anemia All cultures from current admission neg. Regular diet pain management Zofran for nausea prn Continue with daptomycin 500 mg IV Q48h as per ID, renal adjusted dose F/U ID consult, Dr. Bolivar OR AM for wound revise and evaluation of wound vac by Ortho NPO past midnight Anemia Stable, improved from 2 days ago 8.9 today Continue Ferrous Sulfate Colace for constipation Monitor HTN Stable, chronic Contiunue with home medication - norvasc, losartan/HCTZ, carvedilol, ASA HLD Continue with pravastatin VIt D diff Continue vit D Prophylactic measures SCD Lovenox held, anemia
--- NOTE | 2018-04-22 11:23 | CP.PCM.PN ---
Subjective - Date & Time of Evaluation Date of Evaluation: 04/22/18 Time of Evaluation: 09:40 - Subjective Subjective: S[facility] pres[facility] daughter; pt comfortable, in no pain whatsoever Objective - Vital Signs/Intake and Output Vital Signs (last 24 hours): Temp Pulse Resp BP Pulse Ox 97.9 F 67 18 132/78 98 04/22/18 08:29 04/22/18 09:24 04/22/18 08:29 04/22/18 09:24 04/22/18 08:29 - Medications Medications: Current Medications Acetaminophen (Tylenol 325mg Tab) 650 mg PO Q4 PRN PRN Reason: Fever 101 degrees fahrenheit Allopurinol (Zyloprim) 100 mg PO DAILY [facility] Last Admin: 04/22/18 09:24 Dose: 100 mg Amlodipine Besylate (Norvasc) 5 mg PO DAILY [facility] Last Admin: 04/22/18 09:23 Dose: 5 mg Aspirin (Ecotrin) 81 mg PO Q12 [facility] Last Admin: 04/21/18 21:30 Dose: 81 mg Carvedilol (Coreg) 6.25 mg PO BID [facility] Last Admin: 04/22/18 09:21 Dose: 6.25 mg Cholecalciferol (Vitamin D) 2,000 intlu PO DAILY [facility] Last Admin: 04/22/18 09:24 Dose: 2,000 intlu Ferrous Sulfate (Feosol) 325 mg PO BID [facility] Last Admin: 04/22/18 09:22 Dose: 325 mg Folic Acid (Folic Acid) 1 mg PO DAILY [facility] Last Admin: 04/22/18 09:24 Dose: 1 mg Hydrochlorothiazide (Microzide) 12.5 mg PO DAILY [facility] Last Admin: 04/22/18 09:22 Dose: 12.5 mg Daptomycin 500 mg/ Sodium (Chloride) 100 mls @ 100 mls/hr IV Q48H [facility] Stop: 04/23/18 21:01 Last Admin: 04/20/18 21:09 Dose: 100 mls/hr Losartan Potassium (Cozaar) 100 mg PO DAILY [facility] Last Admin: 04/22/18 09:24 Dose: 100 mg Multivitamins/Minerals (Therapeutic-M Tab) 1 tab PO DAILY [facility] Last Admin: 04/22/18 09:24 Dose: 1 tab Ondansetron HCl (Zofran Inj) 4 mg IVP ONCE PRN PRN Reason: Nausea/Vomiting Oxycodone/Acetaminophen (Percocet 5/325 Mg Tab) 1 tab PO Q4 PRN PRN Reason: Pain, moderate (4-7) Stop: 04/24/18 21:37 Last Admin: 04/21/18 21:58 Dose: 1 tab Oxycodone/Acetaminophen (Percocet 5/325 Mg Tab) 2 tab PO Q4 PRN PRN Reason: Pain, severe (8-10) Stop: 04/24/18 21:38 Pravastatin Sodium (Pravachol) 20 mg PO HS [facility] Last Admin: 04/21/18 21:30 Dose: 20 mg Senna/Docusate Sodium (Senokot S 50 Mg-8.6 Mg) 1 tab PO [facility] Last Admin: 04/21/18 21:59 Dose: 1 tab - Labs Labs: 04/22/18 08:30 04/22/18 08:30 PT 12.2 Seconds (9.8-13.1) 04/18/18 19:13 INR 1.1 04/18/18 19:13 APTT 30.0 Seconds (25.6-37.1) 04/18/18 19:13 - Additional Findings Additional findings: Musculoskekltal: stance/gait-defrred Pt at bedrest- dressomng dry and intact no evidence for thromboembolic disease N/V intact no gross deficits Veraflow drainage intact no defcits Assessment and Plan - Assessment and Plan (Free Text) Assessment: A- s/p wound dehiscience ;no clinical evdience for deep sepsis;ABSOLUTELY NO PAIN p- ORTHOPEDICALLY STABLE - AFTER TRANSFER TO WOUND VAC (WITHOUT vERAFLOW) REFRRAL TO PLASTIC SURGEON
[2018-04-22] MEDS: DAPTOmycin 500 MG in Sodium Chloride 0.9% 100 ML IV SCH (21:15)
[2018-04-22] MEDS: Pravastatin Sodium 20 MG TAB PO SCH (21:17)
[2018-04-22] MEDS: Docusate-Senna 50 mg-8.6 mg Tab PO SCH (21:17)
[2018-04-22] MEDS: Oxycodone/Acetaminophen 5/325 mg Tab PO PRN (21:19)
[2018-04-23 06:23] LABS: HEMOGLOBIN 9.6 g/dL (12.0-16.0); MEAN CELL VOLUME 87.3 fl (81.0-99.0); MEAN CORPUSCULAR HEMOGLOBIN 29.2 pg (27.0-31.0); MEAN CORPUSCULAR HGB CONC 33.4 g/dL (33.0-37.0); RBC 3.29 Mil/uL (3.80-5.20); RED CELL DISTRIBUTION WIDTH 15.1 % (11.5-14.5); WHITE BLOOD COUNT 6.8 K/uL (4.8-10.8)
[2018-04-23 06:47] LABS: CALCIUM 9.3 mg/dL (8.4-10.2)
--- NOTE | 2018-04-23 07:54 | CP.PCM.PN ---
Subjective - Date & Time of Evaluation Date of Evaluation: 04/23/18 Time of Evaluation: 07:45 - Subjective Subjective: NO CHEST PAIN OR SOB Objective - Vital Signs/Intake and Output Vital Signs (last 24 hours): Temp Pulse Resp BP Pulse Ox 97.7 F 65 19 116/70 96 04/23/18 00:00 04/23/18 00:00 04/23/18 00:00 04/23/18 00:00 04/23/18 00:00 - Medications Medications: Current Medications Acetaminophen (Tylenol 325mg Tab) 650 mg PO Q4 PRN PRN Reason: Fever 101 degrees fahrenheit Allopurinol (Zyloprim) 100 mg PO DAILY [facility] Last Admin: 04/22/18 09:24 Dose: 100 mg Amlodipine Besylate (Norvasc) 5 mg PO DAILY [facility] Last Admin: 04/22/18 09:23 Dose: 5 mg Aspirin (Ecotrin) 81 mg PO Q12 [facility] Last Admin: 04/22/18 21:16 Dose: Not Given Carvedilol (Coreg) 6.25 mg PO BID [facility] Last Admin: 04/22/18 17:15 Dose: 6.25 mg Cholecalciferol (Vitamin D) 2,000 intlu PO DAILY [facility] Last Admin: 04/22/18 09:24 Dose: 2,000 intlu Ferrous Sulfate (Feosol) 325 mg PO BID [facility] Last Admin: 04/22/18 17:15 Dose: 325 mg Folic Acid (Folic Acid) 1 mg PO DAILY [facility] Last Admin: 04/22/18 09:24 Dose: 1 mg Hydrochlorothiazide (Microzide) 12.5 mg PO DAILY [facility] Last Admin: 04/22/18 09:22 Dose: 12.5 mg Daptomycin 500 mg/ Sodium (Chloride) 100 mls @ 100 mls/hr IV Q48H [facility] Stop: 04/23/18 21:01 Last Admin: 04/22/18 21:15 Dose: 100 mls/hr Losartan Potassium (Cozaar) 100 mg PO DAILY [facility] Last Admin: 04/22/18 09:24 Dose: 100 mg Multivitamins/Minerals (Therapeutic-M Tab) 1 tab PO DAILY [facility] Last Admin: 04/22/18 09:24 Dose: 1 tab Ondansetron HCl (Zofran Inj) 4 mg IVP ONCE PRN PRN Reason: Nausea/Vomiting Oxycodone/Acetaminophen (Percocet 5/325 Mg Tab) 1 tab PO Q4 PRN PRN Reason: Pain, moderate (4-7) Stop: 04/24/18 21:37 Last Admin: 04/22/18 21:19 Dose: 1 tab Oxycodone/Acetaminophen (Percocet 5/325 Mg Tab) 2 tab PO Q4 PRN PRN Reason: Pain, severe (8-10) Stop: 04/24/18 21:38 Pravastatin Sodium (Pravachol) 20 mg PO HS [facility] Last Admin: 04/22/18 21:17 Dose: 20 mg Senna/Docusate Sodium (Senokot S 50 Mg-8.6 Mg) 1 tab PO HS [facility] Last Admin: 04/22/18 21:17 Dose: 1 tab - Labs Labs: 04/23/18 05:00 04/23/18 05:00 PT 12.2 Seconds (9.8-13.1) 04/18/18 19:13 INR 1.1 04/18/18 19:13 APTT 30.0 Seconds (25.6-37.1) 04/18/18 19:13 - Respiratory Exam Respiratory Exam: Clear to Ausculation Bilateral - Cardiovascular Exam Cardiovascular Exam: REGULAR RHYTHM, +S1, +S2 - Extremities Exam Additional comments: RIGHT LE WITH IMMOBILIZER Assessment and Plan - Assessment and Plan (Free Text) Assessment: S/P SURGERY FOR INFECTED RIGHT TKR WOUND INFECTION Plan: CONTINUE LOSARTAN, CARVEDILOL, HCTZ, AMLODIPINE, ASPIRIN AND PRAVACHOL
[2018-04-23] MEDS: Cholecalciferol 1,000 INTLU TAB PO SCH (08:58)
[2018-04-23] MEDS: Multivitamin With Minerals Tab PO SCH (08:58)
--- NOTE | 2018-04-23 09:39 | CP.PCM.PN ---
Objective - Vital Signs/Intake and Output Vital Signs (last 24 hours): Temp Pulse Resp BP Pulse Ox 97.7 F 71 19 153/79 H 96 04/23/18 08:44 04/23/18 08:59 04/23/18 08:44 04/23/18 08:59 04/23/18 08:44 - Medications Medications: Current Medications Acetaminophen (Tylenol 325mg Tab) 650 mg PO Q4 PRN PRN Reason: Fever 101 degrees fahrenheit Allopurinol (Zyloprim) 100 mg PO DAILY [facility] Last Admin: 04/23/18 08:58 Dose: Not Given Amlodipine Besylate (Norvasc) 5 mg PO DAILY [facility] Last Admin: 04/23/18 08:58 Dose: Not Given Aspirin (Ecotrin) 81 mg PO Q12 [facility] Last Admin: 04/23/18 08:58 Dose: Not Given Carvedilol (Coreg) 6.25 mg PO BID [facility] Last Admin: 04/23/18 08:59 Dose: 6.25 mg Cholecalciferol (Vitamin D) 2,000 intlu PO DAILY [facility] Last Admin: 04/23/18 08:58 Dose: Not Given Ferrous Sulfate (Feosol) 325 mg PO BID [facility] Last Admin: 04/23/18 08:58 Dose: Not Given Folic Acid (Folic Acid) 1 mg PO DAILY [facility] Last Admin: 04/23/18 08:58 Dose: Not Given Hydrochlorothiazide (Microzide) 12.5 mg PO DAILY [facility] Last Admin: 04/23/18 08:58 Dose: Not Given Daptomycin 500 mg/ Sodium (Chloride) 100 mls @ 100 mls/hr IV Q48H [facility] Stop: 04/23/18 21:01 Last Admin: 04/22/18 21:15 Dose: 100 mls/hr Losartan Potassium (Cozaar) 100 mg PO DAILY [facility] Last Admin: 04/23/18 08:58 Dose: Not Given Multivitamins/Minerals (Therapeutic-M Tab) 1 tab PO DAILY [facility] Last Admin: 04/23/18 08:58 Dose: Not Given Ondansetron HCl (Zofran Inj) 4 mg IVP ONCE PRN PRN Reason: Nausea/Vomiting Oxycodone/Acetaminophen (Percocet 5/325 Mg Tab) 1 tab PO Q4 PRN PRN Reason: Pain, moderate (4-7) Stop: 04/24/18 21:37 Last Admin: 04/22/18 21:19 Dose: 1 tab Oxycodone/Acetaminophen (Percocet 5/325 Mg Tab) 2 tab PO Q4 PRN PRN Reason: Pain, severe (8-10) Stop: 04/24/18 21:38 Pravastatin Sodium (Pravachol) 20 mg PO HS [facility] Last Admin: 04/22/18 21:17 Dose: 20 mg Senna/Docusate Sodium (Senokot S 50 Mg-8.6 Mg) 1 tab PO HS [facility] Last Admin: 04/22/18 21:17 Dose: 1 tab - Labs Labs: 04/23/18 05:00 04/23/18 05:00 PT 12.2 Seconds (9.8-13.1) 04/18/18 19:13 INR 1.1 04/18/18 19:13 APTT 30.0 Seconds (25.6-37.1) 04/18/18 19:13
--- NOTE | 2018-04-23 13:59 | CP.PCM.DIS ---
Provider - Provider Date of Admission: 04/20/18 09:49 Attending physician: Suzette Victoria MD Time Spent in preparation of Discharge (in minutes): 20 Diagnosis - Discharge Diagnosis (1) Increased wound drainage Status: Chronic (2) Wound dehiscence Status: Chronic (3) Anemia Status: Acute (4) Vitamin D deficiency Status: Chronic Hospital Course - Lab Results Lab Results: Micro Results 04/19/18 16:00 Knee - Right Gram Stain - Final 04/19/18 16:00 Knee - Right Wound Culture - Final No growth. 04/19/18 16:00 Knee - Right Gram Stain - Final 04/19/18 16:00 Knee - Right Wound Culture - Final No growth. 04/19/18 14:02 Other: Please Indicate Gram Stain - Final 04/19/18 14:02 Other: Please Indicate Body Fluid Culture - Final No growth. 04/18/18 19:25 Blood-Venous Blood Culture - Preliminary NO GROWTH AFTER 4 DAYS 04/18/18 18:55 Blood-Venous Blood Culture - Preliminary NO GROWTH AFTER 4 DAYS 04/19/18 16:00 Knee - Right Gram Stain - Final 04/19/18 16:00 Knee - Right Anaerobic Culture - Final NO ANAEROBES ISOLATED. 04/19/18 16:00 Knee - Right Wound Culture - Final No growth. 04/19/18 16:00 Knee - Right Gram Stain - Final 04/19/18 16:00 Knee - Right Wound Culture - Final No growth. 04/19/18 16:00 Knee - Right Gram Stain - Final 04/19/18 16:00 Knee - Right Wound Culture - Final No growth. 04/19/18 16:00 Knee - Right Gram Stain - Final 04/19/18 16:00 Knee - Right Wound Culture - Final No growth. 04/19/18 16:00 Knee - Right Gram Stain - Final 04/19/18 16:00 Knee - Right Wound Culture - Final No growth. 04/19/18 16:00 Knee - Right Gram Stain - Final 04/19/18 16:00 Knee - Right Wound Culture - Final No growth. 04/19/18 16:00 Knee - Right Gram Stain - Final 04/19/18 16:00 Knee - Right Wound Culture - Final No growth. 04/19/18 14:02 Knee - Right Anaerobic Culture - Final NO ANAEROBES ISOLATED. 04/19/18 14:02 Other: Please Indicate Fungal Culture - Preliminary 04/19/18 14:02 Other: Please Indicate Mycobacterial Culture - Preliminary 04/18/18 19:13 Urine Urine Culture - Final No Growth (<1,000 CFU/ML) Most Recent Lab Values WBC 6.8 K/uL (4.8-10.8) 04/23/18 05:00 RBC 3.29 Mil/uL (3.80-5.20) L 04/23/18 05:00 Hgb 9.6 g/dL (12.0-16.0) L 04/23/18 05:00 Hct 28.7 % (34.0-47.0) L 04/23/18 05:00 MCV 87.3 fl (81.0-99.0) 04/23/18 05:00 MCH 29.2 pg (27.0-31.0) 04/23/18 05:00 MCHC 33.4 g/dL (33.0-37.0) 04/23/18 05:00 RDW 15.1 % (11.5-14.5) H 04/23/18 05:00 Plt Count 290 K/uL (130-400) 04/23/18 05:00 MPV 8.1 fl (7.2-11.7) 04/18/18 19:13 Neut % (Auto) 60.0 % (50.0-75.0) 04/18/18 19:13 Lymph % (Auto) 26.8 % (20.0-40.0) 04/18/18 19:13 [place] % (Auto) 9.4 % (0.0-10.0) 04/18/18 19:13 Eos % (Auto) 3.0 % (0.0-4.0) 04/18/18 19:13 Baso % (Auto) 0.8 % (0.0-2.0) 04/18/18 19:13 Neut # (Auto) 4.9 K/uL (1.8-7.0) 04/18/18 19:13 Lymph # (Auto) 2.2 K/uL (1.0-4.3) 04/18/18 19:13 [place] # (Auto) 0.8 K/uL (0.0-0.8) 04/18/18 19:13 Eos # (Auto) 0.2 K/uL (0.0-0.7) 04/18/18 19:13 Baso # (Auto) 0.1 K/uL (0.0-0.2) 04/18/18 19:13 PT 12.2 Seconds (9.8-13.1) 04/18/18 19:13 INR 1.1 04/18/18 19:13 APTT 30.0 Seconds (25.6-37.1) 04/18/18 19:13 Sodium 141 mmol/l (132-148) 04/23/18 05:00 Potassium 4.6 MMOL/L (3.6-5.0) 04/23/18 05:00 Chloride 107 mmol/L (98-107) 04/23/18 05:00 Carbon Dioxide 26 mmol/L (22-30) 04/23/18 05:00 Anion Gap 13 (10-20) 04/23/18 05:00 BUN 23 mg/dl (7-17) H 04/23/18 05:00 Creatinine 1.1 mg/dl (0.7-1.2) 04/23/18 05:00 Est GFR ( Amer) 60 04/23/18 05:00 Est GFR (Non-Af Amer) 49 04/23/18 05:00 Random Glucose 118 mg/dL (65-105) H 04/23/18 05:00 Lactic Acid 1.3 MMOL/L (0.7-2.1) 04/18/18 19:13 Calcium 9.3 mg/dL (8.4-10.2) 04/23/18 05:00 Total Bilirubin 0.6 mg/dl (0.2-1.3) 04/18/18 19:13 AST 24 U/L (14-36) 04/18/18 19:13 ALT 19 U/L (9-52) 04/18/18 19:13 Alkaline Phosphatase 64 U/L (38-126) 04/18/18 19:13 Total Creatine Kinase 39 U/L (30-135) 04/21/18 05:20 Total Protein 8.3 G/DL (6.3-8.2) H 04/18/18 19:13 Albumin 4.0 g/dL (3.5-5.0) 04/18/18 19:13 Globulin 4.3 gm/dL (2.2-3.9) H 04/18/18 19:13 Albumin/Globulin Ratio 0.9 (1.0-2.1) L 04/18/18 19:13 25-OH Vitamin D Total 28.3 NG/ML (30.0-100.0) L 04/21/18 05:20 Urine Color Yellow (YELLOW) 04/18/18 19:13 Urine Clarity Clear (Clear) 04/18/18 19:13 Urine pH 6.0 (5.0-8.0) 04/18/18 19:13 Ur Specific [place] 1.009 (1.003-1.030) 04/18/18 19:13 Urine Protein 100 mg/dL (NEGATIVE) 04/18/18 19:13 Urine Glucose (UA) Neg mg/dL (Normal) 04/18/18 19:13 Urine Ketones Negative mg/dL (NEGATIVE) 04/18/18 19:13 Urine Blood Moderate (NEGATIVE) 04/18/18 19:13 Urine Nitrate Negative (NEGATIVE) 04/18/18 19:13 Urine Bilirubin Negative (NEGATIVE) 04/18/18 19:13 Urine Urobilinogen 0.2-1.0 mg/dL (0.2-1.0) 04/18/18 19:13 Ur Leukocyte Esterase Trace Melvi/uL (Negative) 04/18/18 19:13 Urine RBC (Auto) 10 /hpf (0-3) H 04/18/18 19:13 Urine Microscopic WBC < 1 /hpf (0-5) 04/18/18 19:13 Ur Squamous Epith Cells 1 /hpf (0-5) 04/18/18 19:13 Ur Renal Epithelial Cell 3 /hpf (0-3) 04/18/18 19:13 Urine Bacteria Few (<OCC) H 04/18/18 19:13 Granular Casts (Auto) 9 /lpf (0-1) 04/18/18 19:13 Fluid Type Synovial fluid 04/19/18 14:02 Synovial WBC 478.0 /mm3 (0.0-150.0) H 04/19/18 14:02 Synovial RBC 95729.0 /mm3 (0.0-0.0) H 04/19/18 14:02 Synovial Neutrophils 86.0 % (0-0) H 04/19/18 14:02 Synovial Lymphocytes 10.0 % (0-0) H 04/19/18 14:02 Synov Monos/Macrophage 4 % (0-0) H 04/19/18 14:02 Synovial Fluid Comment Light red 04/19/18 14:02 Blood Type O POSITIVE 04/19/18 12:07 Antibody Screen Negative 04/19/18 12:07 BBK History Checked Patient has bt 04/19/18 12:07 - Hospital Course Hospital Course: 67 yo female with PMH of HTN, HLD, osteoarthritis present to ED for Persistent wound drainage of surgical wound. Pt is Sp right TKR 01/22/2018 and had prev Right I&D done 03/21/2018. Was admitted for I&D. I&D was performed on the In the OR. Pt was put on Wound Vac for drainage. Since Surgery pt had minimal pain, and no complain. Pt had to stay over weekend to dressing change Monday to staright wound vac. Today pt pain is minimal, Pt is stable, vitals are stable, Pt have chronic anemia and on Ferrous Sulfate. Pt was cleared by surgery and medical team. Pt want to be discharged home. Pt was on a 6 week daptomycin treamtent. Pt instructed to finish Abx. Will place a Wound Vac for 1 week, Pt need to F/u With Dr. Plummer Pt will be discharged home and follow up with PCP in 1 week for post ob Medication allopurinol 100mg Amlodipine 5mg aspirin Carvedilol 6.25 Cholecalciferol 2,000 unit Daptomycin 500mg IV Docusate Ferrous Sulfate Folic Acid 1 mg Lostartan/ Hydrochlorothiazide Tramadol 50mg Pravachol 20mg PT NEED TO FINISH HER ABx Discharge Exam - Head Exam Head Exam: ATRAUMATIC, NORMAL INSPECTION, NORMOCEPHALIC - Eye Exam Eye Exam: EOMI, Normal appearance, PERRL Pupil Exam: NORMAL ACCOMODATION, PERRL - Respiratory Exam Respiratory Exam: Clear to PA & Lateral, NORMAL BREATHING PATTERN, UNREMARKABLE - Cardiovascular Exam Cardiovascular Exam: REGULAR RHYTHM, +S1, +S2 - GI/Abdominal Exam GI & Abdominal Exam: Normal Bowel Sounds, Unremarkable - Extremities Exam Additional comments: Right knee is covered with PAULINO Wrapped - Neurological Exam Neurological exam: Alert, CN II-XII Intact, Oriented x3 - Psychiatric Exam Psychiatric exam: Normal Affect, Normal Mood - Skin Skin Exam: Dry, Intact, Normal Color, Warm Discharge Plan - Follow Up Plan Condition: STABLE Disposition: HOME/ ROUTINE Patient education suggested?: Yes Referrals: Len Plummer III, MD [Staff Provider] -
[2018-04-23] MEDS ORDERED: Bacitracin Ointment 30 GM TUBE ONE (14:22)
[2018-04-23] MEDS ORDERED: Lidocaine 4% (Laryng-O-Jet) Kit MM ONE (14:36)
[2018-04-23] MEDS ORDERED: Rocuronium 10 mg/ml (5 ml) ONE (14:37)
[2018-04-23] MEDS ORDERED: Succinylcholine 200 mg/10 ml Inj IV ONE (14:37)
[2018-04-23] MEDS ORDERED: Propofol 10 mg/ml Inj (20 ML) ONE (14:37)
--- NOTE | 2018-04-23 14:44 | CP.PCM.PN ---
Addendum entered and electronically signed by Azam Elizondo PA-C 04/26/18 11:09: After OR cultures were finalized, it was determined that the patient did not have a superficial wound infection. The patient is diagnosed with a wound dehiscence and will follow up in the office and plastics physician. Original Note: Subjective - Date & Time of Evaluation Date of Evaluation: 04/23/18 Time of Evaluation: 08:00 - Subjective Subjective: Patient seen and examined at bedside comfortable. No complaints of pain. No new complaints. Scheduled for VAC change today. Denies CP/SOB/N/V/D/fever Objective - Vital Signs/Intake and Output Vital Signs (last 24 hours): Temp Pulse Resp BP Pulse Ox 97.7 F 71 19 153/79 H 96 04/23/18 08:44 04/23/18 08:59 04/23/18 08:44 04/23/18 08:59 04/23/18 08:44 - Medications Medications: Current Medications Acetaminophen (Tylenol 325mg Tab) 650 mg PO Q4 PRN PRN Reason: Fever 101 degrees fahrenheit Allopurinol (Zyloprim) 100 mg PO DAILY [facility] Last Admin: 04/23/18 08:58 Dose: Not Given Amlodipine Besylate (Norvasc) 5 mg PO DAILY [facility] Last Admin: 04/23/18 08:58 Dose: Not Given Aspirin (Ecotrin) 81 mg PO Q12 [facility] Last Admin: 04/23/18 08:58 Dose: Not Given Carvedilol (Coreg) 6.25 mg PO BID [facility] Last Admin: 04/23/18 08:59 Dose: 6.25 mg Cholecalciferol (Vitamin D) 2,000 intlu PO DAILY [facility] Last Admin: 04/23/18 08:58 Dose: Not Given Ferrous Sulfate (Feosol) 325 mg PO BID [facility] Last Admin: 04/23/18 08:58 Dose: Not Given Folic Acid (Folic Acid) 1 mg PO DAILY [facility] Last Admin: 04/23/18 08:58 Dose: Not Given Hydrochlorothiazide (Microzide) 12.5 mg PO DAILY [facility] Last Admin: 04/23/18 08:58 Dose: Not Given Daptomycin 500 mg/ Sodium (Chloride) 100 mls @ 100 mls/hr IV Q48H [facility] Stop: 04/23/18 21:01 Last Admin: 04/22/18 21:15 Dose: 100 mls/hr Losartan Potassium (Cozaar) 100 mg PO DAILY [facility] Last Admin: 04/23/18 08:58 Dose: Not Given Multivitamins/Minerals (Therapeutic-M Tab) 1 tab PO DAILY [facility] Last Admin: 04/23/18 08:58 Dose: Not Given Ondansetron HCl (Zofran Inj) 4 mg IVP ONCE PRN PRN Reason: Nausea/Vomiting Oxycodone/Acetaminophen (Percocet 5/325 Mg Tab) 1 tab PO Q4 PRN PRN Reason: Pain, moderate (4-7) Stop: 04/24/18 21:37 Last Admin: 04/22/18 21:19 Dose: 1 tab Oxycodone/Acetaminophen (Percocet 5/325 Mg Tab) 2 tab PO Q4 PRN PRN Reason: Pain, severe (8-10) Stop: 04/24/18 21:38 Pravastatin Sodium (Pravachol) 20 mg PO HS [facility] Last Admin: 04/22/18 21:17 Dose: 20 mg Senna/Docusate Sodium (Senokot S 50 Mg-8.6 Mg) 1 tab PO HS [facility] Last Admin: 04/22/18 21:17 Dose: 1 tab - Labs Labs: 04/23/18 05:00 04/23/18 05:00 PT 12.2 Seconds (9.8-13.1) 04/18/18 19:13 INR 1.1 04/18/18 19:13 APTT 30.0 Seconds (25.6-37.1) 04/18/18 19:13 - Extremities Exam Additional comments: R knee: knee imm intact, Dressings CDI intact, Ver[place]low Dressings intact Sensation intact SP/DP/TN motor intact EHL/FHL/TA/G pedal pulses intact comps soft NT b/l Assessment and Plan (1) Wound dehiscence Assessment & Plan: POD# 2 s/p R knee I&D and Wound VAC change -maintain knee imm -maintain veraflow dressings -PT/OT 10%FF WB -ok to discharge home following VAC change today in [place] -above d/w Dr. Plummer in agreement Status: Chronic
[2018-04-23] MEDS ORDERED: Lactated Ringer's 1,000 ML IV ONE (15:38)
[2018-04-23] MEDS ORDERED: ePHEDrine 50 mg/ml Inj ONE (16:00)
[2018-04-23 16:43] LABS: FLUID TYPE SYNOVIAL FLUID
[2018-04-23] MEDS ORDERED: Lactated Ringer's 1,000 ML IV SCH (16:45)
[2018-04-23] MEDS ORDERED: Dexamethasone 4 mg/1 ml IVP PRN (16:45)
--- NOTE | 2018-04-23 16:59 | PCM.SURG1 ---
Surgeon's Initial Post Op Note - Surgeon's Notes Surgeon: Kavitha Coil Rewind Machine Operator: EKTA Acevedo Anesthesia Administered By: LMA- general DR coelho Pre-Operative Diagnosis: wound dehiscience s/p TKR Operative Findings: as above, withmarked improvement in granulation tissue. aspiration rvealed no evidence for deep sepsis Post-Operative Diagnosis: as above Operation Performed: applx Provena wound vac. aspiration R knee. Manipulation R knee under anaesthesia Specimen/Specimens Removed: synvoial fluid/blood tinged Estimated Blood Loss: EBL {In ML}: 2 Blood Products Given: N/A Drains Used: Wound Vac Post-Op Condition: Fair Date of Surgery/Procedure: 04/23/18 Time of Surgery/Procedure: 16:20 (time in room 15:38/anesthesia indcution time 15:38)
[2018-04-23 17:49] LABS: SF GROSS APPEARANCE BLOODY (CLEAR)
[2018-04-23 17:50] LABS: SYNOVIAL FLUID COMMENT RED
[2018-04-23 17:55] VITALS: PULSE 72
[2018-04-23 17:56] LABS: SYNOVIAL FLUID MONO/MACROPHAGE 3 % (0-0)
[2018-04-23 18:53] VITALS: RESP 18
[2018-04-23 19:33] VITALS: BP 141/85; TEMP 98.2; O2SAT 95
--- NOTE | 2018-04-26 10:00 | OP ---
PROCEDURE DATE: 04/23/2018 PREOPERATIVE DIAGNOSIS: Wound dehiscence, status post total knee replacement with no evidence for deep sepsis. POSTOPERATIVE DIAGNOSIS: Wound dehiscence, status post total knee replacement with no evidence for deep sepsis. OPERATION PERFORMED: 1. Application of Prevena wound VAC. 2. Aspiration, right knee. 3. Manipulation of right knee under anesthesia and fluoroscopy. SURGEON: Len Plummer MD VP AD [employer] WEST: CARA Adam. ANESTHESIA: Laryngeal mask anesthesia. ANESTHESIOLOGIST: Herb García MD. OPERATIVE FINDINGS: As above. No evidence of deep sepsis. There is marked improvement in granulation tissue in the area of the dehiscence. Aspiration again reveals no evidence for deep sepsis. COMPLICATIONS: No complications. SPECIMENS REMOVED: Synovial fluid, blood tinged. BLOOD LOSS: Approximately 2 to 5 mL. No blood products given. DRAINS USED: Wound VAC. POSTOPERATIVE CONDITION: Stable. DATE OF SURGERY: 04/23/2018, time in the room 1538. ANESTHESIA INDUCTION TIME: 1538. TIME OF PROCEDURE COMMENCIN. OPERATIVE INDICATION: Alma Gomez is a 67-year-old woman who several weeks ago presented with wound dehiscence after successful complex total knee replacement arthroplasty. The patient was doing well, developed some increasing dehiscence. As a result, the patient was taken back for incision and drainage. This was accomplished. The patient had a wound VAC applied. The patient continued to drain. The patient was brought back in for further debridement, which was accomplished. The wound VAC had been changed once. The patient now presents for conversion of the VeraFlo wound VAC to a traditional Prevena wound VAC. Pros, cons, risks, and benefits of surgery approach were discussed with the patient, her daughter, Ruma, and her son, Carlos. The concept that the wound dehiscence will have to be addressed by Plastic Surgery is discussed. The concept that there is no evidence for deep infection, the patient never had increasing pain on passive flexion-extension. She is essentially a depressed individual which is a setup for complaints but the issue at the end of the day is there was no clinical evidence ever for increased temperature, purulent drainage, erythema, or clinical findings including increasing pain on passive flexion-extension of the knee. Pros, cons, risks, and benefits of surgical approach were discussed with the possibility of infection at some later time with the possibility of mechanical failure, infection, thromboembolic disease, possibility of secondary surgery done by Plastic Surgery or even tertiary surgery was discussed. The patient wished the surgery to be accomplished as does the family. OPERATIVE PROCEDURE: After having obtained informed consent, after having identified side, site, and procedure, and a critical pause/time-out after the satisfactory induction of the anesthetic, the patient identified as Eusebio Gomez in the supine position with all bony prominences well padded. The right lower extremity was prepped and free draped in usual fashion for extremity surgery. The tourniquet had been applied but it was not inflated, and in fact, it was not utilized during this procedure. The initial portion of the procedure was the aspiration and manipulation. Prior to removal of the VeraFlo wound VAC under the surgeon's direction, fluoroscope was positioned. Video images were generated, and therapeutic decisions were made therefrom. From a superolateral portal, the knee is aspirated, approximately 10 mL of sterile saline was introduced. The knee is manipulated, and the diluent is aspirated, the right knee is aspirated. The aspirate was sent for stat Gram stain, number of white cells per high-power field, aerobic, anaerobic, AFB, and fungal cultures. This having been accomplished, while we are awaiting for the stat Gram stain results, the initial VeraFlo wound VAC is carefully removed. The wound edges were noted. There is found to be beefy granulation protecting the patellar ligament, and there is marked improvement with softening of the dehiscence and beefy granulation which is appropriate to accept the graft. Dr. Jhon Yañez had been contacted prior to this regarding the plastic surgical management of the problem, and the family had been given his phone number. so the plastic surgical aspect of this problem has been prepared for. This having been accomplished, the Prevena wound VAC was applied in a standard fashion. The initial wound VAC is cut to size, in fact, in a tear drop shape to cover the approximately 3 cm x 3 cm area of dehiscence. This was carefully placed with the adhesive lock to offer a watertight seal. At this point in time, approximately 50-cm piece size aperture was placed in hydrophilic foam dressing. The hydrophilic foam dressing had been applied over this. At this point, the Prevena wound VAC was placed and the secondary watertight adhesive is placed over that. This having been accomplished, the Prevena wound VAC was hooked up to suction, working perfectly. Jesus Alberto-Rodrigez compression dressing and knee immobilizers applied. This is the third procedure that this patient underwent during this hospitalization. Len Plummer MD
== END 2018-04-23 20:51 | disposition home health service (06) | DRG 903 ==
LOC: H.ER 17:38 → H.ERHOLD 18:21 → H.MEDSURG1 23:55 → OBSVTOIN 04-20 09:49
PROVIDERS: ADMIT Hospitalist; ATTEND Hospitalist
PROC: 0SCC0ZZ Extirpation of Matter from Right Knee Joint, Open Approach (ICD-10-PCS; 2018-04-19)
PROC: 0S9C0ZX Drainage of Right Knee Joint, Open Approach, Diagnostic (ICD-10-PCS; 2018-04-19)
PROC: 2W1QX6Z Compression of Right Lower Leg using Pressure Dressing (ICD-10-PCS; 2018-04-19)
PROC: 0JBN0ZZ Excision of Right Lower Leg Subcutaneous Tissue and Fascia, Open Approach (ICD-10-PCS; principal; 2018-04-19 14:15)
PROC: 0S9C0ZZ Drainage of Right Knee Joint, Open Approach (ICD-10-PCS; 2018-04-23)
PROC: 2W1QX6Z Compression of Right Lower Leg using Pressure Dressing (ICD-10-PCS; 2018-04-23)
DX: T81.32XA Disruption of internal operation (surgical) wound, not elsewhere classified, initial encounter (principal); T81.89XA Other complications of procedures, not elsewhere classified, initial encounter; M79.5 Residual foreign body in soft tissue; Z96.651 Presence of right artificial knee joint; M17.0 Bilateral primary osteoarthritis of knee; D64.89 Other specified anemias; E55.9 Vitamin D deficiency, unspecified; Y83.8 Other surgical procedures as the cause of abnormal reaction of the patient, or of later complication, without mention of misadventure at the time of the procedure; I10 Essential (primary) hypertension; E78.5 Hyperlipidemia, unspecified; E78.00 Pure hypercholesterolemia, unspecified; K59.00 Constipation, unspecified; Y92.9 Unspecified place or not applicable